=== PATIENT | male | born 1950 | race Caucasian/White ===

== ENCOUNTER 2018-03-12 17:45 | Emergency (ER) | payer BC, OTHER ==
--- NOTE | 2018-03-12 19:07 | ER ---
Nurse's Notes [facility] Name: Yasmani Ro Age: 67 yrs Sex: Male : 1950 Arrival Date: 03/12/2018 Time: 17:49 Bed 13 Private MD: None, None Diagnosis: Cutaneous abscess of abdominal wall Presentation: 03/12 18:00 Presenting complaint: Patient states: bump on lower abdomen x 4 days, "I think it might jl7 be a spider bite.". Transition of care: patient was not received from another setting of care. Onset of symptoms was March 08, 2018. Risk Assessment: Do you want to hurt yourself or someone else? Patient reports no desire to harm self or others. Initial Sepsis Screen: Does the patient meet any 2 criteria? No. Patient's initial sepsis screen is negative. Does the patient have a suspected source of infection? No. Patient's initial sepsis screen is negative. Care prior to arrival: None. 18:00 Method Of Arrival: Ambulatory 7 18:00 Acuity: AMARI 4 jl7 Triage Assessment: 18:02 General: Appears in no apparent distress. uncomfortable, Behavior is calm, cooperative, jl7 appropriate for age. Pain: Denies pain. Derm: Abscess located on suprapubic area is quarter sized, is red. Historical: - Allergies: 18:02 Codeine; jl7 18:02 Morphine; jl7 - Home Meds: 18:02 None [Active]; jl7 - PMHx: 18:02 None; jl7 - PSHx: 18:02 shoulder surgery; Knee surgery; jl7 - Immunization history:: Adult Immunizations not up to date, Last tetanus immunization: > 10 years ago. - Social history:: Smoking status: Patient/guardian denies using tobacco, Patient uses alcohol, on a daily basis. admits to "couple of beers" a day. - Ebola Screening: : No symptoms or risks identified at this time. Screenin:22 Abuse screen: Denies threats or abuse. Nutritional screening: No deficits noted. mb3 Tuberculosis screening: No symptoms or risk factors identified. Fall Risk None identified. Assessment: 18:21 General: Appears in no apparent distress. comfortable, Behavior is calm, cooperative, mb3 appropriate for age. Pain: Complains of pain in suprapubic area. Neuro: No deficits noted. Cardiovascular: No deficits noted. Respiratory: No deficits noted. GI: No deficits noted. No signs and/or symptoms were reported involving the gastrointestinal system. : No deficits noted. No signs and/or symptoms were reported regarding the genitourinary system. Derm: Reports insect bite to suprapubic area, open now, itching and painful. Vital Signs: 18:02 BP 164 / 84; Pulse 77; Resp 16 S; Temp 98.6(O); Pulse Ox 98% on R/A; Weight 115.67 kg jl7 (R); Height 6 ft. 1 in. (185.42 cm) (R); Pain 4/10; 18:02 Body Mass Index 33.64 (115.67 kg, 185.42 cm) jl7 ED Course: 17:49 Patient arrived in ED. mr 17:50 None, None is Private Physician. mr 18:01 Triage completed. jl7 18:02 Arm band placed on right wrist. jl7 18:05 [facility]. pm1 18:05 Jack Frazier MD is Attending Physician. pm1 18:13 Oneil Bob, ELISSA is Primary Nurse. mb3 18:23 Patient has correct armband on for positive identification. Bed in low position. Call mb3 light in reach. 19:24 No provider procedures requiring assistance completed. Patient did not have IV access mb3 during this emergency room visit. Administered Medications: No medications were administered Outcome: 19:06 Discharge ordered by . pm1 19:24 Discharged to home ambulatory. mb3 19:24 Condition: stable 19:24 Discharge instructions given to patient, Instructed on discharge instructions, follow up and referral plans. medication usage, Demonstrated understanding of instructions, follow-up care, medications, Prescriptions given X 1. 19:25 Patient left the ED. mb3 Signatures: Aurelia Max mr Faustino Rausch, RUMA DENTAL TECHNICIAN INSTRUCTOR pm1 Nacho Gipson RN RN jl7 Oneil Bob RN RN mb3
--- NOTE | 2018-03-12 19:07 | EDPHYS ---
Physician Documentation [facility] Name: Yasmani Ro Age: 67 yrs Sex: Male : 1950 Arrival Date: 03/12/2018 Time: 17:49 Bed 13 Private MD: None, None ED Physician Jack Frazier HPI: 03/12 19:05 This 67 yrs old Male presents to ER via Ambulatory with complaints of Abscess.pm1 19:05 The patient presents with an abscess of the suprapubic area. Description: The affected pm1 area is small. Onset: The symptoms/episode began/occurred 4 day(s) ago. Possible cause(s): unknown. Associated signs and symptoms: Pertinent positives: drainage, Pertinent negatives: fever. Modifying factors: the symptoms are alleviated by nothing, the symptoms are aggravated by touching. Severity of symptoms: in the emergency department the symptoms have improved. The patient has not recently seen a physician. Historical: - Allergies: 18:02 Codeine; jl7 18:02 Morphine; jl7 - Home Meds: 18:02 None [Active]; jl7 - PMHx: 18:02 None; jl7 - PSHx: 18:02 shoulder surgery; Knee surgery; jl7 - Immunization history:: Adult Immunizations not up to date, Last tetanus immunization: > 10 years ago. - Social history:: Smoking status: Patient/guardian denies using tobacco, Patient uses alcohol, on a daily basis. admits to "couple of beers" a day. - Ebola Screening: : No symptoms or risks identified at this time. ROS: 19:05 Constitutional: Negative for fever, chills, and weight loss, Eyes: Negative for injury, pm1 pain, redness, and discharge, ENT: Negative for injury, pain, and discharge, Neck: Negative for injury, pain, and swelling, Cardiovascular: Negative for chest pain, palpitations, and edema, Respiratory: Negative for shortness of breath, cough, wheezing, and pleuritic chest pain, Abdomen/GI: Negative for abdominal pain, nausea, vomiting, diarrhea, and constipation, Back: Negative for injury and pain, MS/Extremity: Negative for injury and deformity. 19:05 Neuro: Negative for headache, weakness, numbness, tingling, and seizure. 19:05 Skin: Positive for abscess, of the suprapubic area. Exam: 19:05 Constitutional: This is a well developed, well nourished patient who is awake, alert, pm1 and in no acute distress. Head/Face: Normocephalic, atraumatic. Eyes: Pupils equal round and reactive to light, extra-ocular motions intact. Lids and lashes normal. Conjunctiva and sclera are non-icteric and not injected. Cornea within normal limits. Periorbital areas with no swelling, redness, or edema. ENT: Nares patent. No nasal discharge, no septal abnormalities noted. Tympanic membranes are normal and external auditory canals are clear. Oropharynx with no redness, swelling, or masses, exudates, or evidence of obstruction, uvula midline. Mucous membranes moist. Neck: Trachea midline, no thyromegaly or masses palpated, and no cervical lymphadenopathy. Supple, full range of motion without nuchal rigidity, or vertebral point tenderness. No Meningismus. Chest/axilla: Normal chest wall appearance and motion. Nontender with no deformity. No lesions are appreciated. Cardiovascular: Regular rate and rhythm with a normal S1 and S2. No gallops, murmurs, or rubs. Normal PMI, no JVD. No pulse deficits. Respiratory: Lungs have equal breath sounds bilaterally, clear to auscultation and percussion. No rales, rhonchi or wheezes noted. No increased work of breathing, no retractions or nasal flaring. Abdomen/GI: Soft, non-tender, with normal bowel sounds. No distension or tympany. No guarding or rebound. No evidence of tenderness throughout. Back: No spinal tenderness. No costovertebral tenderness. Full range of motion. 19:05 MS/ Extremity: Pulses equal, no cyanosis. Neurovascular intact. Full, normal range of motion. 19:05 Skin: Appearance: normal except for affected area, abscess, that is small, no surrounding cellulitis, fluctuance. Minimal drainage present, cellulitis, is not appreciated. 19:05 Neuro: Orientation: is normal, Motor: moves all fours, Gait: is steady, at a normal pace, without difficulty. Vital Signs: 18:02 BP 164 / 84; Pulse 77; Resp 16 S; Temp 98.6(O); Pulse Ox 98% on R/A; Weight 115.67 kg jl7 (R); Height 6 ft. 1 in. (185.42 cm) (R); Pain 4/10; 18:02 Body Mass Index 33.64 (115.67 kg, 185.42 cm) jl7 MDM: 18:05 Patient medically screened. pm1 19:05 Data reviewed: vital signs. Data interpreted: Pulse oximetry: on room air is 98 %. pm1 Interpretation: normal. Counseling: I had a detailed discussion with the patient and/or guardian regarding: the historical points, exam findings, and any diagnostic results supporting the discharge/admit diagnosis, the need for outpatient follow up, to return to the emergency department if symptoms worsen or persist or if there are any questions or concerns that arise at home. Administered Medications: No medications were administered Disposition: 03/13 07:14 Co-signature as Attending Physician, Jack Frazier MD. rn Disposition: 03/12/18 19:06 Discharged to Home. Impression: Cutaneous abscess of abdominal wall. - Condition is Stable. - Discharge Instructions: Skin Abscess. - Prescriptions for Bactrim DS 800- 160 mg Oral Tablet - take 1 tablet by ORAL route every 12 hours for 10 days; 20 tablet. - Medication Reconciliation Form, Thank You Letter, Antibiotic Education form. - Follow up: Emergency Department; When: As needed; Reason: Worsening of condition. Follow up: Private Physician; When: 2 - 3 days; Reason: Recheck today's complaints, Continuance of care, Re-evaluation by your physician. - Problem is new. - Symptoms have improved. Signatures: Jack Frazier MD MD rn Marinas, Patrick, RUMA SEXUAL ASSAULT SOCIAL WORKER pm1 Nacho Gipson RN RN jl7 Oneil Bob RN RN mb3 Corrections: (The following items were deleted from the chart) 03/12 19:25 19:06 03/12/2018 19:06 Discharged to Home. Impression: Cutaneous abscess of abdominal mb3 wall. Condition is Stable. Forms are Medication Reconciliation Form, Thank You Letter, Antibiotic Education, Prescription Opioid Use. Follow up: Emergency Department; When: As needed; Reason: Worsening of condition. Follow up: Private Physician; When: 2 - 3 days; Reason: Recheck today's complaints, Continuance of care, Re-evaluation by your physician. Problem is new. Symptoms have improved. pm1
[2018-03-12 19:37] VITALS: BP 164/84; TEMP 98.6; O2SAT 98
== END 2018-03-12 19:25 | disposition home or self-care (01) ==
LOC: ER 17:45
DX: L02.211 Cutaneous abscess of abdominal wall (principal); Z88.5 Allergy status to narcotic agent
CPT/HCPCS: 99282

== ENCOUNTER 2023-07-08 17:31 | Inpatient (IN) | payer BC, OTHER ==
[2023-07-08] MEDS ORDERED: ASPIRIN 81 MG CHEWABLE TABLET ONE (18:16)
[2023-07-08 18:19] LABS: Absolute Lymphocytes (CBC) 1.9 K/uL (0.7-4.9); Lymphocytes % 23.9 % (15.3-44.8); MCV 83.9 fL (80-100); MPV 8.6 fL (7.6-11.3); Platelets 202 thou/uL (152-406); Protime INR 1.06; RBC Red Blood Cell Count 5.37 M/uL (4.33-5.43)
[2023-07-08 18:30] LABS: ALT/SGPT 28 U/L (16-61); AST/SGOT 19 U/L (15-37); Alkaline Phosphatase 70 U/L (45-117); BUN Blood Urea Nitrogen 18 mg/dL (7-18); Bicarbonate 28 mEq/L (21-32); Bilirubin Total 0.3 mg/dL (0.2-1.0); Glomerular Filtration Rate 72 ml/min (=/>90); Glucose Level 189 mg/dL (74-106); Potassium 3.9 mEq/L (3.5-5.1); Protein, Total 7.6 g/dL (6.4-8.2); Sodium Level 136 mEq/L (136-145)
[2023-07-08 18:31] LABS: Albumin 3.5 g/dL (3.4-5.0); Bilirubin Direct < 0.1 mg/dL (0-0.2); Bilirubin Indirect, Calculated ND mg/dL (0.2-0.8); Magnesium 2.2 mg/dL (1.6-2.4); NT PRO-BNP 749 pg/mL (<450)
--- NOTE | 2023-07-08 18:35 | RAD REPORT ---
EXAM DESCRIPTION: RAD - Chest Single View - 07/08/2023 6:11 pm CLINICAL HISTORY: vtach COMPARISON: CHEST SINGLE VIEW dated 09/20/2013; CHEST SINGLE VIEW dated 09/19/2013; CHEST PA AND LAT 2 VIEW dated 09/18/2013; CHEST PA AND LAT 2 VIEW dated 09/16/2012 FINDINGS: Lines: None. Lungs: No evidence of edema or pneumonia. Pleural: No significant pleural effusions or pneumothorax. Cardiac: The heart size is within normal limits. Mediastinum: Within normal limits. Bones: No acute fractures. Other: None IMPRESSION: No acute cardiopulmonary disease.
--- NOTE | 2023-07-08 18:50 | EDPHYS ---
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 tach. Patient denies any chest pain, shortness of breath, any symptoms. Dr. Huggins sent the patient to be admitted to have a heart cath done in the morning. Denies other acute complaints at this time, symptoms are moderate severity, no other aggravating alleviating factors.. Historical: - Allergies: 17:35 Morphine; ll1 17:35 Codeine; ll1 17:43 Hydrocodone-Acetaminophen; ll1 - PMHx: 17:43 prostate problems; ll1 - PSHx: 17:43 knee replacements; ll1 - Immunization history:: Adult Immunizations up to date. - Social history:: Smoking status: Patient denies any tobacco usage or history of. - Family history:: not pertinent. ROS: 18:58 Constitutional: Negative for fever, chills, and weight loss, Cardiovascular: Negative rt for chest pain, palpitations, and edema, Respiratory: Negative for shortness of breath, cough, wheezing, and pleuritic chest pain, Abdomen/GI: Negative for abdominal pain, nausea, vomiting, diarrhea, and constipation, MS/Extremity: Negative for injury and deformity, Skin: Negative for injury, rash, and discoloration, Neuro: Negative for headache, weakness, numbness, tingling, and seizure, Psych: Negative for depression, anxiety, suicide ideation, homicidal ideation, and hallucinations, Exam: 18:58 Constitutional: This is a well developed, well nourished patient who is awake, alert, rt and in no acute distress. Head/Face: Normocephalic, atraumatic. Chest/axilla: Normal chest wall appearance and motion. Nontender with no deformity. No lesions are appreciated. Cardiovascular: Regular rate and rhythm with a normal S1 and S2. No gallops, murmurs, or rubs. Normal PMI, no JVD. No pulse deficits. Respiratory: Lungs have equal breath sounds bilaterally, clear to auscultation and percussion. No rales, rhonchi or wheezes noted. No increased work of breathing, no retractions or nasal flaring. Abdomen/GI: Soft, non-tender, with normal bowel sounds. No distension or tympany. No guarding or rebound. No evidence of tenderness throughout. Skin: Warm, dry with normal turgor. Normal color with no rashes, no lesions, and no evidence of cellulitis. MS/ Extremity: Pulses equal, no cyanosis. Neurovascular intact. Full, normal range of motion. Neuro: Awake and alert, GCS 15, oriented to person, place, time, and situation. Cranial nerves II-XII grossly intact. Motor strength 5/5 in all extremities. Sensory grossly intact. Cerebellar exam normal. Normal gait. Psych: Awake, alert, with orientation to person, place and time. Behavior, mood, and affect are within normal limits. 18:58 ECG was reviewed by the Attending Physician. Vital Signs: 17:44 BP 165 / 88; Pulse 101; Resp 17; Temp 97.8; Pulse Ox 96% on R/A; Pain 0/10; ll1 18:00 BP 166 / 88; Pulse 100; Resp 22 S; Pulse Ox 96% on R/A; aa5 18:15 BP 123 / 57; Pulse 74; Resp 16 S; Pulse Ox 97% on R/A; aa5 19:30 BP 125 / 59; Pulse 76; Resp 18 S; Pulse Ox 95% on R/A; ha1 20:52 BP 126 / 60; Pulse 70; Resp 12 S; Pulse Ox 94% on R/A; as6 17:44 Pain Scale: Adult ll1 MDM: 17:37 Patient medically screened. rt 19:00 Differential Diagnosis Coronary artery disease, dysrhythmia. Data reviewed: vital rt signs, nurses notes, lab test result(s), EKG, radiologic studies. Consideration of Admission/Observation Patient was admitted/placed on observation. Management of patient was discussed with the following: Supervising Film Or Videotape Editor: Discussed with assistant women's basketball coach recommends metoprolol for antiarrhythmic. I considered the following discharge prescriptions or medication management in the emergency department Medications were administered in the Emergency Department. See MAR. Independent interpretation of the following test(s) in the Emergency Department X-Ray: My interpretation is No consolidation seen on interpretation of x-ray images. Counseling: I had a detailed discussion with the patient and/or guardian regarding the historical points, exam findings, and any diagnostic results supporting the discharge/admit diagnosis, lab results, radiology results, the need for further work-up and treatment in the hospital. 07/08 17:52 Order name: Basic Metabolic Panel; Complete Time: 18:38 rt 07/08 17:52 Order name: CBC with Diff; Complete Time: 18:38 rt 07/08 17:52 Order name: LFT's; Complete Time: 18:38 rt 07/08 17:52 Order name: Magnesium; Complete Time: 18:38 rt 07/08 17:52 Order name: NT PRO-BNP; Complete Time: 18:38 rt 07/08 17:52 Order name: PT-INR; Complete Time: 18:38 rt 07/08 17:52 Order name: Troponin HS; Complete Time: 18:38 rt 07/08 17:52 Order name: XRAY Chest (1 view); Complete Time: 18:38 rt 07/08 17:52 Order name: EKG; Complete Time: 17:53 rt 07/08 17:52 Order name: Cardiac monitoring; Complete Time: 18:01 rt 07/08 17:52 Order name: EKG - Nurse/Tech; Complete Time: 18:01 rt 07/08 17:52 Order name: IV Saline Lock; Complete Time: 18:01 rt 07/08 17:52 Order name: Labs collected and sent; Complete Time: 18:01 rt 07/08 17:52 Order name: O2 Per Protocol; Complete Time: 18:01 rt 07/08 17:52 Order name: O2 Sat Monitoring; Complete Time: 18:01 rt EC:58 Rate is 96 beats/min. Rhythm is regular, Sinus Rhythm with Unifocal PVCs, Left bundle rt branch block. QRS [place] is Normal. DE interval is normal. QT interval is normal. No Q waves. Interpreted by me. Administered Medications: 18:07 Drug: Metoprolol IVP 5 mg IVP once; Hold for SBP <100 or HR <60. Route: IVP; Site: left aa5 forearm; 18:15 Follow up: Response: No adverse reaction aa5 18:08 Drug: Aspirin PO Chewable Tablet 324 mg PO once; 81 mg tablets x 4 Route: PO; aa5 18:34 Follow up: Response: No adverse reaction aa5 Disposition Summary: 07/08/23 18:49 Hospitalization Ordered Notes: Hospitalization Status: Observation rt Provider: Barry Deal rt Location: Telemetry/MedSurg (observation) rt Condition: Stable rt Problem: new rt Symptoms: have improved rt Bed/Room Type: Standard rt Room Assignment: 429(07/08/23 20:10) as6 Diagnosis - Ventricular tachycardia rt Forms: - Medication Reconciliation Form rt - SBAR form rt - Leadership Thank You Letter rt Signatures: Dispatcher [employer] EDMS Malgorzata Isbell Audri RN RN aa5 Radha Augustine RN RN ll1 Chintan Ware RN RN as6 Jacinto Frey MD MD rt Corrections: (The following items were deleted from the chart) 19:01 18:49 rt bd 20:10 19:01 408 bd as6
--- NOTE | 2023-07-08 18:50 | ER ---
Nurse's Notes [facility] Name: Yasmani Ro Age: 73 yrs Sex: Male : 1950 Arrival Date: 07/08/2023 Time: 17:31 Bed 3 Private MD: Diagnosis: Ventricular tachycardia Presentation: 07/08 17:44 Chief complaint: Patient states: Wearing a heart monitor for Dr. Huggins. [facility] come into ED for runs of V tach. Denies CP and dizziness. Coronavirus screen: Vaccine status: Patient reports being unvaccinated. Client denies travel out of the [place] in the last 14 days. At this time, the client does not indicate any symptoms associated with coronavirus-19. Ebola Screen: Patient denies travel to an Ebola-affected area in the 21 days before illness onset. Initial Sepsis Screen: Does the patient meet any 2 criteria? No. Patient's initial sepsis screen is negative. Does the patient have a suspected source of infection? No. Patient's initial sepsis screen is negative. Risk Assessment: Do you want to hurt yourself or someone else? Patient reports no desire to harm self or others. 17:44 Method Of Arrival: Ambulatory [facility] 17:44 Acuity: AMARI 2 1 20:51 Onset of symptoms was July 08, 2023. as6 Historical: - Allergies: 17:35 Morphine; ll1 17:35 Codeine; ll1 17:43 Hydrocodone-Acetaminophen; ll1 - PMHx: 17:43 prostate problems; 1 - PSHx: 17:43 knee replacements; ll1 - Immunization history:: Adult Immunizations up to date. - Social history:: Smoking status: Patient denies any tobacco usage or history of. - Family history:: not pertinent. Screenin:00 [facility] ED Fall Risk Assessment (Adult) History of falling in the last 3 months, ha1 including since admission No falls in past 3 months (0 pts) Confusion or Disorientation No (0 pts) Intoxicated or Sedated No (0 pts) Impaired Gait No (0 pts) Mobility Assist Device Used No (0 pt) Altered Elimination No (0 pt) Score/Fall Risk Level 0 - 2 = Low Risk Oriented to surroundings, Maintained a safe environment, Hourly rounding (assess needs \T\ fall precautionary measures) done. Abuse screen: Denies threats or abuse. Denies injuries from another. Nutritional screening: No deficits noted. Tuberculosis screening: No symptoms or risk factors identified. Assessment: 17:40 General: Appears in no apparent distress. comfortable, Behavior is calm, cooperative. rs5 Pain: Denies pain. Neuro: Level of Consciousness is awake, alert, obeys commands, Oriented to person, place, time, situation. Cardiovascular: Heart tones S1 S2 present Rhythm is regular. Cardiovascular: Denies chest pain. Respiratory: Airway is patent Respiratory effort is even, unlabored, Respiratory pattern is regular, symmetrical, Breath sounds are clear bilaterally. GI: Abdomen is round non-distended, Bowel sounds present X 4 quads. Abd is soft and non tender X 4 quads. : No signs and/or symptoms were reported regarding the genitourinary system. EENT: No signs and/or symptoms were reported regarding the EENT system. Derm: Skin is intact, Skin is pink, warm \T\ dry. Musculoskeletal: Range of motion: intact in all extremities. 18:00 Reassessment: Patient is alert, oriented x 3, equal unlabored respirations, skin aa5 warm/dry/pink. 19:30 General: Appears comfortable, Behavior is calm, cooperative. Pain: Denies pain. Neuro: ha1 Level of Consciousness is awake, alert, obeys commands, Oriented to person, place, time, situation, Speech is normal, Facial symmetry appears normal. Cardiovascular: Capillary refill < 3 seconds Patient's skin is warm and dry. Respiratory: Airway is patent Respiratory effort is even, unlabored, Respiratory pattern is regular, symmetrical. GI: Abdomen is round non-distended. Derm: Skin is pink, warm \T\ dry. Musculoskeletal: Circulation, motion, and sensation intact. Range of motion: intact in all extremities. 19:30 Reassessment: attempted to give report. ha1 20:11 Reassessment: Reassessment: report given to ELISSA Rob. ha1 Vital Signs: 17:44 BP 165 / 88; Pulse 101; Resp 17; Temp 97.8; Pulse Ox 96% on R/A; Pain 0/10; ll1 18:00 BP 166 / 88; Pulse 100; Resp 22 S; Pulse Ox 96% on R/A; aa5 18:15 BP 123 / 57; Pulse 74; Resp 16 S; Pulse Ox 97% on R/A; aa5 19:30 BP 125 / 59; Pulse 76; Resp 18 S; Pulse Ox 95% on R/A; ha1 20:52 BP 126 / 60; Pulse 70; Resp 12 S; Pulse Ox 94% on R/A; as6 17:44 Pain Scale: Adult ll1 ED Course: 17:35 Patient arrived in ED. im 17:35 Jacinto Frey MD is Attending Physician. rt 17:35 Arm band placed on Patient placed in an exam room, on a stretcher. ll1 17:45 Triage completed. ll1 17:53 Nathaniel Oquendo, ELISSA is Primary Nurse. rs5 18:02 EKG done, by ED staff, reviewed by Jacinto Frey MD. cori 18:13 XRAY Chest (1 view) In Process Unspecified. EDMS 18:49 Barry Deal is Hospitalizing Provider. rt 20:02 Patient has correct armband on for positive identification. Placed in gown. Bed in low ha1 position. Call light in reach. Side rails up X 1. Provided Education on: need for admit . 20:02 No provider procedures requiring assistance completed. Patient admitted, IV remains in ha1 place. Administered Medications: 18:07 Drug: Metoprolol IVP 5 mg IVP once; Hold for SBP <100 or HR <60. Route: IVP; Site: left aa5 forearm; 18:15 Follow up: Response: No adverse reaction aa5 18:08 Drug: Aspirin PO Chewable Tablet 324 mg PO once; 81 mg tablets x 4 Route: PO; aa5 18:34 Follow up: Response: No adverse reaction aa5 Medication: 20:02 VIS not applicable for this client. ha1 Outcome: 18:49 Decision to Hospitalize by Provider. rt 20:51 Admitted to Tele accompanied by tech, via wheelchair, room 429, with chart, as6 20:51 Condition: stable 20:51 Instructed on the need for admit, 20:52 Patient left the ED. as6 Signatures: Dispatcher [employer] EDNJ Matilde Alonzo RN RN aa5 Radha Augustine RN RN ll1 Chintan Ware RN RN as6 Mariama Miranda RN RN ha1 Tina Mcpherson RN Jacinto Avalos MD MD rt Nathaniel Oquendo, RN RN rs5 Helga Ritter
--- NOTE | 2023-07-08 18:56 | P.HP ---
Certification for Inpatient Patient admitted to: Observation With expected LOS: <2 Midnights Patient will require the following post-hospital care: None Practitioner: I am a practitioner with admitting privileges, knowledge of patient current condition, hospital course, and medical plan of care. Services: Services provided to patient in accordance with Admission requirements found in Title 42 Section 412.3 of the Code of Federal Regulations Patient History Date of Service: 07/08/23 Primary Care Provider: Anshul Reason for admission: intermittent vtach History of Present Illness: Mr. Ro is a 73-year-old male with past medical history of asthma, seasonal allergies, and mild hyperlipidemia not on medication who was sent to the emergency department by Dr. Huggins today. He has been wearing a heart monitor for the past 2 weeks because he had an abnormal EKG. When Dr. Huggins saw the results today, he sent him to the emergency department for further evaluation because he has been having intermittent runs of ventricular tachycardia. Patient is completely asymptomatic, he denies any chest pain, shortness of breath, palpitations. EKG showed sinus arrhythmia with frequent PVCs, nonspecific intraventricular block, wide QRS complexes. Lab work is unremarkable, troponin within normal limits, chest x-ray negative. He was given aspirin and metoprolol emergency department. Dr. Huggins would like him to be admitted for cardiac catheterization in the morning. Allergies codeine Allergy (Verified 09/19/13 04:32) Itching/Hives/Rash morphine Allergy (Verified 09/19/13 04:32) Itching/Hives/Rash Home medications list reviewed: Yes Home Medications: Albuterol [Proventil] 17 gm IH PRN 09/19/13 Benzonatate [Tessalon] 200 mg PO PRN 09/19/13 Famotidine [Pepcid*] 20 mg PO BID 09/19/13 Montelukast [Singulair*] 5 mg PO DAILY 09/19/13 hydrOXYzine HCL [Atarax*] 25 mg PO PRN 09/19/13 Albuterol Inhaler [Ventolin Inhaler*] 2 puff IH Q4H PRN #1 hfa.aer.ad 09/20/13 Azithromycin Tab [Zithromax*] 500 mg PO DAILY #1 tab 09/20/13 Fluticasone/Salmeterol [Advair 500/50 Diskus*] 1 puff IH BID #60 disk 09/20/13 Guaifenesin [Robitussin] 100 mg PO Q4HP PRN #0 ml 09/20/13 predniSONE [Deltasone*] 10 mg PO BID #20 tab 09/20/13 - Past Medical/Surgical History Diabetic: No -: asthma -: seasonal allergies -: R shoulder sx -: Left and right knee sx Psychosocial/ Personal History: Patient lives at home with his . - Family History Family History: Reviewed- Non-Contributory - Social History Smoking Status: Never smoker Alcohol use: Yes CD- Drugs: No Caffeine use: Yes Place of Residence: Home Review of Systems Unremarkable Physical Examination - Vital Signs Temperature: 97.8 F Blood Pressure: 123/57 Pulse: 74 Respirations: 16 Pulse Ox (%): 97 - Physical Exam General: Alert, In no apparent distress HEENT: Atraumatic, EOMI, Sclerae nonicteric Neck: Supple, 2+ carotid pulse no bruit Respiratory: Clear to auscultation bilaterally, Normal air movement Cardiovascular: Regular rate/rhythm, Normal S1 S2 Gastrointestinal: Normal bowel sounds, No tenderness Musculoskeletal: No tenderness Integumentary: No rashes Neurological: Normal speech, Normal affect - Studies Laboratory Data (last 24 hrs) 07/08/23 07/08/23 07/08/23 18:00 18:00 18:00 WBC 7.80 Hgb 15.1 Hct 45.0 Plt Count 202 PT 11.7 INR 1.06 Sodium 136 Potassium 3.9 BUN 18 Creatinine 1.07 Glucose 189 H Magnesium 2.2 Total Bilirubin 0.3 AST 19 ALT 28 Alkaline Phosphatase 70 Assessment and Plan - Problems (Diagnosis) (1) Ventricular tachycardia (paroxysmal) Current Visit: Yes Status: Acute - Plan Patient is admitted for observation for intermittent vtach and cardiac catheterization. NPO at midnight. Monitor on telemetry. Trend troponin. Patient denies any chest pain, shortness of breath, dizziness. Dr. Huggins to take patient for cardiac cath in the morning. Discharge Plan: Home Plan to discharge in: 24 Hours - Advance Directives Does patient have a Living Will: No Does patient have a Durable POA for Healthcare: No - Code Status/Comfort Care Code Status Assessed: Yes Code Status: Full Code Physician Review: Patient Assessed, Agree with Above Assessment and Plan Critical Care: No Time Spent Managing Pts Care (In Minutes): 50
[2023-07-08] MEDS ORDERED: ONDANSETRON 4 MG/2 ML VIAL IV PRN (19:51)
[2023-07-08] MEDS ORDERED: ACETAMINOPHEN 500 MG TAB PO PRN (19:51)
[2023-07-08 22:42] VITALS: BMI 34.2
[2023-07-09 04:14] LABS: Absolute Lymphocytes (CBC) 2.3 K/uL (0.7-4.9); Hematocrit 42.7 % (39.6-49.0); Lymphocytes % 29.7 % (15.3-44.8); MCV 84.4 fL (80-100); MPV 8.5 fL (7.6-11.3); Platelets 190 thou/uL (152-406); RBC Red Blood Cell Count 5.06 M/uL (4.33-5.43)
[2023-07-09 04:28] LABS: Magnesium 2.3 mg/dL (1.6-2.4); Phosphorus 3.3 mg/dL (2.5-4.9); Potassium 4.4 mEq/L (3.5-5.1); Troponin High Sensitivity 22.1 pg/mL (<58.9)
--- NOTE | 2023-07-09 10:42 | EKG ---
Test Date: 2023-07-08 Test Time: 17:59:36 Community Outreach Advocate: MB MEASUREMENT RESULTS: Intervals: Rate: 96 W[place]: 190 QRSD: 156 QT: 422 QTc: 533 [place]: P: 61 [place]: 190 QRS: 19 T: 165 INTERPRETIVE STATEMENTS: Sinus rhythm with sinus arrhythmia with frequent premature ventricular complexes Nonspecific intraventricular block Abnormal ECG Compared to ECG 09/18/2013 20:00:11 Ventricular premature complex(es) now present Sinus tachycardia no longer present Myocardial infarct finding no longer present Electronically Signed On 07-09-23 10:41:32 ENGINEER by Ozzy Huggins
[2023-07-09] MEDS ORDERED: MONTELUKAST 5 MG PO PRN (17:40)
[2023-07-09] MEDS ORDERED: AMIODARONE HCL 900 MG in Dextrose 5%-Water 482 ML IV SCH (17:48)
[2023-07-09] MEDS ORDERED: AMIODARONE HCL 150 MG in D5W 100 ML IV STA (17:49)
[2023-07-09] MEDS ORDERED: MONTELUKAST 10 MG TAB PO PRN (17:50)
[2023-07-09] MEDS ORDERED: AMIODARONE HCL 450 MG in D5W 241 ML IV SCH (18:00)
--- NOTE | 2023-07-09 18:00 | P.PN ---
Subjective Date of Service: 07/09/23 Primary Care Provider: Anshul Chief Complaint: intermittent vtach Patient has no new complaint. He denies any chest pain. He denies any shortness of breath. Physical Examination - Vital Signs Temperature: 97.6 F Blood Pressure: 137/80 Pulse: 75 Respirations: 14 Pulse Ox (%): 97 - Studies Laboratory Data (last 24 hrs) 07/08/23 07/08/23 07/08/23 18:00 18:00 18:00 WBC 7.80 Hgb 15.1 Hct 45.0 Plt Count 202 PT 11.7 INR 1.06 Sodium 136 Potassium 3.9 BUN 18 Creatinine 1.07 Glucose 189 H Magnesium 2.2 Total Bilirubin 0.3 AST 19 ALT 28 Alkaline Phosphatase 70 Assessment And Plan - Current Problems (Diagnosis) (1) Ventricular tachycardia (paroxysmal) Current Visit: Yes Status: Acute - Plan Case discussed with cardiology Dr. Huggins. Dr. Huggins recommend 24-hour amiodarone drip. Cardiac catheterization tomorrow. Monitor and optimize electrolytes. Resume home dosing singulair. N.p.o. at midnight.
[2023-07-10] MEDS ORDERED: HEPA 1000U/500MLS 2,000 UNIT/1,000 ML BAG IV ONE (06:58)
[2023-07-10] MEDS ORDERED: LIDOCAINE 1% 20 ML MDV ONE (06:59)
[2023-07-10] MEDS ORDERED: FENTANYL CITR 100 MCG/2 ML ONE (07:18)
[2023-07-10] MEDS ORDERED: VERAPAMIL HCL 10 MG/4 ML VIAL IV ONE (07:19)
[2023-07-10] MEDS ORDERED: MIDAZOLAM HCL 2 MG/2 ML INJ ONE (07:19)
[2023-07-10] MEDS ORDERED: HEPARIN 5000 UNIT/ML 1 ML VIAL ONE (07:19)
[2023-07-10] MEDS ORDERED: NITROGLYCERIN/D5W 50 MG/250 ML BTL IV ONE (07:20)
[2023-07-10] MEDS ORDERED: NA CHLORIDE 0.9% 500 ML ONE (07:58)
--- NOTE | 2023-07-10 09:14 | OP ---
Date of Procedure: 07/10/2023 Surgeon: TOM SWAIN Procedure Performed: 1.Selective coronary angiogram. 2.Left heart catheterization. Indication: Ventricular tachycardiac. Access: Right radial artery 6-Nauruan, closed with TR band. Complications: None. Bleeding: Less than 20 mL. Total Sedation Time: 20 minutes. Description Of Procedure: After risks, benefits, alternatives were explained, patient agreed to proc edure and signed informed consent. Patient was brought into cardiac catheterization laboratory, prep ped and draped in the usual sterile fashion. Then, I accessed right radial artery using pediatric mi cropuncture kit, under ultrasound guidance, placed 6-Nauruan Slender sheath and took a 5-Nauruan [place] 4.0 catheter over J-wire into the aortic root, engaged left main, took standard views, and then RCA a nd took standard views and the catheter was pushed over the wire into the LV, measured the LVEDP pull back, did not record any gradient. Then, removed the catheter and sheath and placed TR band with goo d hemostasis. Findings: 1.Left main; very large, normal. 2.LAD, very large vessel and normal. Normal diagonal branches. 3.Ramus intermedius has proximal 40% stenosis. 4.Left circumflex is normal. 5.RCA; large and dominant with mid 30% stenosis. 6.Normal LVEDP at 5 mmHg. Conclusion: 1.Mild nonobstructive coronary artery disease. 2.Normal LVEDP. Recommendation: Medical management. /ELSIE Voice ID: [id number] Report ID: [id number]
[2023-07-10 09:54] VITALS: O2SAT 96
--- NOTE | 2023-07-10 17:32 | P.PN ---
Subjective Date of Service: 07/10/23 Primary Care Provider: Anshul Chief Complaint: intermittent vtach Patient denies any complaint. He denies any chest pain. Status post cardiac catheterization today. Physical Examination - Vital Signs Temperature: 97.7 F Blood Pressure: 179/78 Pulse: 71 Respirations: 16 Pulse Ox (%): 100 - Physical Exam General: Alert, In no apparent distress, Oriented x3 HEENT: Mucous membr. moist/pink Neck: Supple, JVD not distended Respiratory: Clear to auscultation bilaterally, Normal air movement Cardiovascular: No edema, Regular rate/rhythm, Normal S1 S2, No murmurs Gastrointestinal: Normal bowel sounds, Soft and benign, Non-distended Musculoskeletal: No swelling, No tenderness Integumentary: No rashes, No cyanosis Neurological: Normal strength at 5/5 x4 extr Assessment And Plan - Current Problems (Diagnosis) (1) Ventricular tachycardia (paroxysmal) Current Visit: Yes Status: Acute - Plan Status post cardiac catheterization Dr. Huggins recommend 24-hour amiodarone drip. Patient to complete amiodarone drip and then transition to oral amiodarone. Monitor and optimize electrolytes. Continue other home medications.
[2023-07-10] MEDS ORDERED: AMIODARONE HCL 200 MG TAB PO SCH (21:00)
[2023-07-10] MEDS: AMIODARONE HCL 200 MG TAB PO SCH (21:08)
[2023-07-11] MEDS: AMIODARONE HCL 200 MG TAB PO SCH (10:02)
--- NOTE | 2023-07-11 13:32 | P.DS ---
Admission Date: 07/10/23 Discharge Date: 07/11/23 Primary Care Provider: Anshul Disposition: ROUTINE DISCHARGE Discharge Condition: FAIR Reason for Admission: intermittent vtach - Problems (1) Ventricular tachycardia (paroxysmal) Current Visit: Yes Status: Acute Brief History of Present Illness: Mr. Ro is a 73-year-old male with past medical history of asthma, seasonal allergies, and mild hyperlipidemia who was sent to the emergency department by Dr. Huggins for abnormal reading noted on his event monitor monitor. He has been wearing an event monitor for 2 weeks because he had an abnormal EKG. The event monitor read intermittent runs of ventricular tachycardia. Patient is completely asymptomatic, he denies any chest pain, shortness of breath, palpitations. EKG showed sinus arrhythmia with frequent PVCs, nonspecific intraventricular block, wide QRS complexes. Lab work unremarkable, troponin within normal limits, chest x-ray negative. He was given aspirin and metoprolol emergency department. Patient was hospitalized for further management. Hospital Course: Patient was admitted to the medical floor, started on amiodarone drip. Cardiology Dr. Huggins evaluated he may perform cardiac catheterization. Cardiac hypothyroidism resulted mild nonobstructive coronary artery disease. Amiodarone drip was transitioned to oral amiodarone. No more runs of VT during the hospital stay. Patient still clinically stable for discharge. He is discharged with oral amiodarone. Vital Signs/Physical Exam: Temp Pulse Resp BP Pulse Ox 97.2 F 87 18 129/69 97 07/11/23 08:00 07/11/23 08:00 07/11/23 08:00 07/11/23 08:00 07/11/23 08:00 Laboratory Data at Discharge: WBC 7.80 thou/uL (4.3-10.9) 07/09/23 03:15 Hgb 13.8 g/dL (13.6-17.9) D 07/09/23 03:15 Hct 42.7 % (39.6-49.0) 07/09/23 03:15 Plt Count 190 thou/uL (152-406) 07/09/23 03:15 PT 11.7 SECONDS (9.5-12.5) 07/08/23 18:00 INR 1.06 07/08/23 18:00 Sodium 138 mEq/L (136-145) 07/11/23 05:26 Potassium 4.0 mEq/L (3.5-5.1) 07/11/23 05:26 BUN 14 mg/dL (7-18) 07/11/23 05:26 Creatinine 0.88 mg/dL (0.70-1.30) 07/11/23 05:26 Glucose 111 mg/dL (74-106) H 07/11/23 05:26 Phosphorus 3.3 mg/dL (2.5-4.9) 07/09/23 03:15 Magnesium 2.3 mg/dL (1.6-2.4) 07/09/23 03:15 Total Bilirubin 0.3 mg/dL (0.2-1.0) 07/08/23 18:00 AST 19 U/L (15-37) 07/08/23 18:00 ALT 28 U/L (16-61) 07/08/23 18:00 Alkaline Phosphatase 70 U/L (45-117) 07/08/23 18:00 Triglycerides 101 mg/dL (<150) 07/09/23 03:15 Cholesterol 181 mg/dL (<200) 07/09/23 03:15 HDL Cholesterol 47 mg/dL (40-60) 07/09/23 03:15 Cholesterol/HDL Ratio 3.85 07/09/23 03:15 Home Medications: Montelukast [Singulair*] 10 mg PO DAILYPRN PRN 09/19/13 Anastrozole [Arimidex*] 0.5 mg PO M,W,F 07/08/23 Aspirin [Aspirin EC] 81 mg PO DAILY #30 tab 07/11/23 New Medications: Aspirin [Aspirin EC] 81 mg PO DAILY #30 tab Diet: AHA Activity: Ad marika Followup: Jaison Landers DO [Primary Care Provider] - Ozzy Huggins MD [ACTIVE - CAN ADMIT] - 1-2 Weeks
[2023-07-11 16:39] VITALS: BP 142/78; TEMP 97.2
== END 2023-07-11 18:05 | disposition home or self-care (01) | DRG 310 ==
LOC: ER 17:31 → 4TH 19:24 → OBSVTOIN 07-10 12:05
PROVIDERS: ADMIT Internal Medicine; ATTEND Internal Medicine
DX: I47.20 Ventricular tachycardia, unspecified (principal); E78.5 Hyperlipidemia, unspecified; I49.3 Ventricular premature depolarization; E03.9 Hypothyroidism, unspecified; J45.909 Unspecified asthma, uncomplicated; I25.10 Atherosclerotic heart disease of native coronary artery without angina pectoris; Z88.5 Allergy status to narcotic agent; Z79.82 Long term (current) use of aspirin; Z79.52 Long term (current) use of systemic steroids; Z79.899 Other long term (current) drug therapy; Z96.653 Presence of artificial knee joint, bilateral
CPT/HCPCS: 36415; 71045; 76937; 80048; 80061; 80076; 83735; 83880; 84100; 84484; 85025; 85610; 93005; 93458; 96374; 99285; C1893; G0378; J0282; J1644; J2001; J2250; J3010; J7040; J7060; Q9966

== ENCOUNTER 2024-12-27 08:41 | Observation (INO) | payer OTHER ==
--- OUTSIDE RECORDS SUMMARY | 2024-12-27 08:45 | XMS REPORT | Continuity of Care Document ---
Author Name Unknown Address [address] [facility] [address] [place] [address] Organization [facility] Address [address] [facility]. [address] [place] [address] Care Team Providers Care Lime Mixer Name Role Phone Jaison Landers Attending Clinician Unavailable Payers Payer Name Policy Type Policy Number Effective Date Expirati on Date Source [employer] Medicare Replace C1 [id number] [facility] [id number] [facility] [employer] Medicare Replace C1 [id number] [facility] MEDICARE NOVITAS [id number] [facility] MEDICARE NOVITAS [id number] [facility] [employer] Medicare Replace C1 [id number] [facility] Problems Condition Name Condition Details Condition Category Status Onset Date Resolution Date Last Treatment Date Treating Clinician Comments Source [id number] Other ejaculator y dysfunctio n Problem [facility] [id number] Primary insomnia Problem [facility] [id number] Urge incontinen ce Problem [facility] [id number] 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 Problem [facility] Impotence of organic origin Erectile dysfunctio n, unspecifie d erectile dysfunctio n type Problem [facility] [id number] Mixed hyperlipid emia Problem [facility] [id number] HTN, goal below 140/80 Problem [facility] [id number] BPH loc w urin obs/LUTS Problem [facility] [id number] Seasonal allergies Problem [facility] [id number] [id number] BMI 34.0-34.9 kg/sq m Problem [facility] [id number] Non-season al allergic rhinitis, unspecifie d trigger Problem [facility] [id number] ED (erectile dysfunctio n) of organic origin Problem [facility] [id number] 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 Problem [facility] Allergies, Adverse Reactions, Alerts Allergy Name Allergy Type Status Severity Reaction(s) Onset Date Inactive Date Treating Clinician Comments Source morphine morphine Active Unknown [facility] codeine codeine Active Unknown [facility] Social History Social Habit Start Date Stop Date Quantity Comments Source History of Tobacco Use [facility] Sex Assigned At [facility] Smoking Status Start Date Stop Date Source Never Smoker [facility] Medications Ordered Medication Name Filled Medication Name Start Date Stop Date Current Medication? Ordering Clinician Indication Dosage Frequency Signature (SIG) Comments Components Source Kenalog (Triamcinol one) Kenalog (Triamcinol one) 0 9-05 00:00: 00 No 40mg [facility] Singulair 10 MG Singulair 10 MG No 1{table t} QD Singulair 10 MG Metoprolol Succinate ER 25 MG Metoprolol Succinate ER 25 MG No 1{table t} QD Metoprolol Succinate ER 25 MG Albuterol Sulfate HFA 108 (90 Base) MCG/ACT Albuterol Sulfate HFA 108 (90 Base) MCG/ACT No 2{puff_ as_need ed} 6xD Albuterol Sulfate HFA 108 (90 Base) MCG/ACT Vital Signs Vital Name Observation Time Observation Value Comments S cassie height 2024-12-21 13:45:00 73 [in_i] Commo n [facility] weight 2024-12-21 13:45:00 264 [lb_av] Comm on [facility] temperature 2024-12-21 13:45:00 97.3 [degF] Com [facility] bmi 2024-12-21 13:45:00 34.83 kg/m2 Comm on [facility] oximetry 2024-12-21 13:45:00 97 % Commo n [facility] respiratory rate 2024-12-21 13:45:00 18 /min [facility] blood pressure systolic 2024-12-21 13:45:00 120 mm[Hg] [facility] blood pressure diastolic 2024-12-21 13:45:00 58 mm[Hg] [facility] height 2024-12-21 13:50:00 73 [in_i] Commo n [facility] weight 2024-12-21 13:50:00 264 [lb_av] Comm on [facility] temperature 2024-12-21 13:50:00 97.3 [degF] Com [facility] bmi 2024-12-21 13:50:00 34.83 kg/m2 Comm on [facility] oximetry 2024-12-21 13:50:00 96 % Commo n [facility] blood pressure systolic 2024-12-21 13:50:00 120 mm[Hg] [facility] blood pressure diastolic 2024-12-21 13:50:00 58 mm[Hg] [facility] height 2024-10-06 08:00:00 73 [in_i] Commo n [facility] weight 2024-10-06 08:00:00 265 [lb_av] Comm on [facility] bmi 2024-10-06 08:00:00 34.96 kg/m2 Comm on [facility] height 2024-08-04 10:00:00 73 [in_i] Commo n [facility] weight 2024-08-04 10:00:00 271 [lb_av] Comm on [facility] temperature 2024-08-04 10:00:00 97.1 [degF] Com mon [facility] bmi 2024-08-04 10:00:00 35.75 kg/m2 Comm on [facility] oximetry 2024-08-04 10:00:00 97 % Commo n [facility] respiratory rate 2024-08-04 10:00:00 17 /min Common [facility] blood pressure systolic 2024-08-04 10:00:00 143 mm[Hg] [facility] blood pressure diastolic 2024-08-04 10:00:00 76 mm[Hg] [facility] height 2024-03-31 10:20:00 73 [in_i] Commo n [facility] weight 2024-03-31 10:20:00 266.6 [lb_av] Co mmon [facility] temperature 2024-03-31 10:20:00 97.2 [degF] Com mon [facility] bmi 2024-03-31 10:20:00 35.17 kg/m2 Comm on [facility] oximetry 2024-03-31 10:20:00 96 % Commo n [facility] blood pressure systolic 2024-03-31 10:20:00 142 mm[Hg] [facility] blood pressure diastolic 2024-03-31 10:20:00 72 mm[Hg] [facility] height 2024-03-31 10:20:00 73 [in_i] Commo n [facility] weight 2024-03-31 10:20:00 266.6 [lb_av] Co on [facility] temperature 2024-03-31 10:20:00 97.2 [degF] Com [facility] bmi 2024-03-31 10:20:00 35.17 kg/m2 Comm on [facility] oximetry 2024-03-31 10:20:00 96 % Commo n [facility] blood pressure systolic 2024-03-31 10:20:00 142 mm[Hg] [facility] blood pressure diastolic 2024-03-31 10:20:00 72 mm[Hg] [facility] height 2024-03-11 08:40:00 73 [in_i] Commo n [facility] weight 2024-03-11 08:40:00 265.4 [lb_av] Co [facility] temperature 2024-03-11 08:40:00 97.3 [degF] Com [facility] bmi 2024-03-11 08:40:00 35.01 kg/m2 Comm on [facility] oximetry 2024-03-11 08:40:00 96 % Commo n [facility] respiratory rate 2024-03-11 08:40:00 17 /min Common [facility] blood pressure systolic 2024-03-11 08:40:00 139 mm[Hg] [facility] blood pressure diastolic 2024-03-11 08:40:00 77 mm[Hg] [facility] height 2023-11-26 08:30:00 73 [in_i] Commo n [facility] weight 2023-11-26 08:30:00 261.0 [lb_av] Co [facility] temperature 2023-11-26 08:30:00 97.6 [degF] Com [facility] bmi 2023-11-26 08:30:00 34.43 kg/m2 Comm on [facility] oximetry 2023-11-26 08:30:00 96 % Commo n [facility] respiratory rate 2023-11-26 08:30:00 17 /min [facility] blood pressure systolic 2023-11-26 08:30:00 141 mm[Hg] [facility] blood pressure diastolic 2023-11-26 08:30:00 80 mm[Hg] [facility] height 2023-11-26 08:00:00 73 [in_i] Commo n [facility] weight 2023-11-26 08:00:00 261.0 [lb_av] Co [facility] temperature 2023-11-26 08:00:00 97.6 [degF] Com [facility] bmi 2023-11-26 08:00:00 34.43 kg/m2 Comm on [facility] oximetry 2023-11-26 08:00:00 96 % Commo n [facility] respiratory rate 2023-11-26 08:00:00 17 /min [facility] blood pressure systolic 2023-11-26 08:00:00 141 mm[Hg] [facility] blood pressure diastolic 2023-11-26 08:00:00 80 mm[Hg] [facility] height 2023-08-06 08:50:00 73 [in_i] Commo n [facility] weight 2023-08-06 08:50:00 259.0 [lb_av] Co [facility] temperature 2023-08-06 08:50:00 97.4 [degF] Com [facility] bmi 2023-08-06 08:50:00 34.17 kg/m2 Comm on [facility] oximetry 2023-08-06 08:50:00 96 % Commo n [facility] respiratory rate 2023-08-06 08:50:00 17 /min Common [facility] blood pressure systolic 2023-08-06 08:50:00 133 mm[Hg] [facility] blood pressure diastolic 2023-08-06 08:50:00 71 mm[Hg] [facility] height 2023-04-16 08:20:00 73 [in_i] Commo n [facility] weight 2023-04-16 08:20:00 261.2 [lb_av] Co mmon [facility] temperature 2023-04-16 08:20:00 97.4 [degF] Com [facility] bmi 2023-04-16 08:20:00 34.46 kg/m2 Comm on [facility] oximetry 2023-04-16 08:20:00 93 % Commo n [facility] respiratory rate 2023-04-16 08:20:00 16 /min [facility] blood pressure systolic 2023-04-16 08:20:00 142 mm[Hg] [facility] blood pressure diastolic 2023-04-16 08:20:00 72 mm[Hg] [facility] height 2023-03-04 11:45:00 73 [in_i] Commo n [facility] weight 2023-03-04 11:45:00 261.4 [lb_av] Co mmon [facility] temperature 2023-03-04 11:45:00 97.9 [degF] Com mon [facility] bmi 2023-03-04 11:45:00 34.48 kg/m2 Comm on [facility] oximetry 2023-03-04 11:45:00 94 % Commo n [facility] respiratory rate 2023-03-04 11:45:00 18 /min [facility] blood pressure systolic 2023-03-04 11:45:00 148 mm[Hg] [facility] blood pressure diastolic 2023-03-04 11:45:00 75 mm[Hg] [facility] height 2023-01-07 10:15:00 73 [in_i] Commo n [facility] weight 2023-01-07 10:15:00 264 [lb_av] Comm on [facility] temperature 2023-01-07 10:15:00 97.3 [degF] Com mon [facility] bmi 2023-01-07 10:15:00 34.83 kg/m2 Comm on [facility] oximetry 2023-01-07 10:15:00 99 % Commo n [facility] respiratory rate 2023-01-07 10:15:00 18 /min [facility] blood pressure systolic 2023-01-07 10:15:00 146 mm[Hg] [facility] blood pressure diastolic 2023-01-07 10:15:00 68 mm[Hg] [facility] height 2022-12-11 08:20:00 73 [in_i] Commo n [facility] weight 2022-12-11 08:20:00 260.3 [lb_av] Co mmon [facility] temperature 2022-12-11 08:20:00 97.2 [degF] Com mon [facility] bmi 2022-12-11 08:20:00 34.34 kg/m2 Comm on [facility] oximetry 2022-12-11 08:20:00 97 % Commo n [facility] respiratory rate 2022-12-11 08:20:00 16 /min Common [facility] blood pressure systolic 2022-12-11 08:20:00 142 mm[Hg] [facility] blood pressure diastolic 2022-12-11 08:20:00 79 mm[Hg] [facility] height 2022-12-11 08:20:00 73 [in_i] Commo n [facility] weight 2022-12-11 08:20:00 260.3 [lb_av] Co mmon [facility] temperature 2022-12-11 08:20:00 97.2 [degF] Com mon [facility] bmi 2022-12-11 08:20:00 34.34 kg/m2 Comm on [facility] oximetry 2022-12-11 08:20:00 97 % Commo n [facility] respiratory rate 2022-12-11 08:20:00 16 /min [facility] blood pressure systolic 2022-12-11 08:20:00 142 mm[Hg] [facility] blood pressure diastolic 2022-12-11 08:20:00 79 mm[Hg] [facility] height 2022-10-08 09:45:00 73 [in_i] Commo n [facility] weight 2022-10-08 09:45:00 267 [lb_av] Comm on [facility] temperature 2022-10-08 09:45:00 97.3 [degF] Com [facility] bmi 2022-10-08 09:45:00 35.22 kg/m2 Comm on [facility] oximetry 2022-10-08 09:45:00 96 % Commo n [facility] respiratory rate 2022-10-08 09:45:00 18 /min [facility] blood pressure systolic 2022-10-08 09:45:00 142 mm[Hg] [facility] blood pressure diastolic 2022-10-08 09:45:00 60 mm[Hg] Common [facility] height 2022-09-03 13:30:00 73 [in_i] Commo n [facility] weight 2022-09-03 13:30:00 266 [lb_av] Comm on [facility] bmi 2022-09-03 13:30:00 35.09 kg/m2 Comm on [facility] height 2022-08-27 08:45:00 73 [in_i] Commo n [facility] weight 2022-08-27 08:45:00 266.8 [lb_av] Co mmon [facility] temperature 2022-08-27 08:45:00 97.7 [degF] Com mon [facility] bmi 2022-08-27 08:45:00 35.2 kg/m2 Commo n [facility] oximetry 2022-08-27 08:45:00 97 % Commo n [facility] respiratory rate 2022-08-27 08:45:00 16 /min Common [facility] blood pressure systolic 2022-08-27 08:45:00 143 mm[Hg] [facility] blood pressure diastolic 2022-08-27 08:45:00 87 mm[Hg] [facility] height 2022-08-14 08:20:00 73 [in_i] Commo n [facility] weight 2022-08-14 08:20:00 265.2 [lb_av] Co mmon [facility] temperature 2022-08-14 08:20:00 97.3 [degF] Com mon [facility] bmi 2022-08-14 08:20:00 34.99 kg/m2 Comm on [facility] oximetry 2022-08-14 08:20:00 99 % Commo n [facility] respiratory rate 2022-08-14 08:20:00 18 /min Common [facility] blood pressure systolic 2022-08-14 08:20:00 138 mm[Hg] [facility] blood pressure diastolic 2022-08-14 08:20:00 76 mm[Hg] Common [facility] height 2022-04-24 08:10:00 73 [in_i] Commo n [facility] weight 2022-04-24 08:10:00 256.9 [lb_av] Co on [facility] temperature 2022-04-24 08:10:00 96.9 [degF] Com mon [facility] bmi 2022-04-24 08:10:00 33.89 kg/m2 Comm on [facility] oximetry 2022-04-24 08:10:00 97 % Commo n [facility] respiratory rate 2022-04-24 08:10:00 16 /min Common [facility] blood pressure systolic 2022-04-24 08:10:00 139 mm[Hg] [facility] blood pressure diastolic 2022-04-24 08:10:00 76 mm[Hg] [facility] height 2022-02-20 13:15:00 73 [in_i] Commo n [facility] weight 2022-02-20 13:15:00 258.2 [lb_av] Co on [facility] temperature 2022-02-20 13:15:00 97.1 [degF] Com [facility] bmi 2022-02-20 13:15:00 34.06 kg/m2 Comm on [facility] oximetry 2022-02-20 13:15:00 96 % Commo n [facility] respiratory rate 2022-02-20 13:15:00 16 /min Common [facility] blood pressure systolic 2022-02-20 13:15:00 162 mm[Hg] Common [facility] blood pressure diastolic 2022-02-20 13:15:00 74 mm[Hg] [facility] height 2021-12-26 08:30:00 73 [in_i] Commo n [facility] weight 2021-12-26 08:30:00 254.5 [lb_av] Co mmon [facility] temperature 2021-12-26 08:30:00 97.8 [degF] Com mon [facility] bmi 2021-12-26 08:30:00 33.57 kg/m2 Comm on [facility] oximetry 2021-12-26 08:30:00 98 % Commo n [facility] respiratory rate 2021-12-26 08:30:00 18 /min Common [facility] blood pressure systolic 2021-12-26 08:30:00 134 mm[Hg] [facility] blood pressure diastolic 2021-12-26 08:30:00 72 mm[Hg] [facility] height 2021-08-30 08:10:00 73 [in_i] Commo n [facility] weight 2021-08-30 08:10:00 249 [lb_av] Comm on [facility] temperature 2021-08-30 08:10:00 97.2 [degF] Com [facility] bmi 2021-08-30 08:10:00 32.85 kg/m2 Comm on [facility] blood pressure systolic 2021-08-30 08:10:00 132 mm[Hg] [facility] blood pressure diastolic 2021-08-30 08:10:00 67 mm[Hg] [facility] height 2021-08-30 09:20:00 73 [in_i] Commo n [facility] weight 2021-08-30 09:20:00 249 [lb_av] Comm on [facility] temperature 2021-08-30 09:20:00 97.2 [degF] Com [facility] bmi 2021-08-30 09:20:00 32.85 kg/m2 Comm on [facility] blood pressure systolic 2021-08-30 09:20:00 132 mm[Hg] [facility] blood pressure diastolic 2021-08-30 09:20:00 67 mm[Hg] [facility] height 2021-08-28 13:00:00 73 [in_i] Commo n [facility] weight 2021-08-28 13:00:00 249 [lb_av] Comm on [facility] temperature 2021-08-28 13:00:00 97.7 [degF] Com mon [facility] bmi 2021-08-28 13:00:00 32.85 kg/m2 Comm on [facility] height 2021-08-01 09:45:00 73 [in_i] Commo n [facility] weight 2021-08-01 09:45:00 249 [lb_av] Comm on [facility] temperature 2021-08-01 09:45:00 98.6 [degF] Com mon [facility] bmi 2021-08-01 09:45:00 32.85 kg/m2 Comm on [facility] oximetry 2021-08-01 09:45:00 96 % Commo n [facility] respiratory rate 2021-08-01 09:45:00 18 /min Common [facility] blood pressure systolic 2021-08-01 09:45:00 149 mm[Hg] Common [facility] blood pressure diastolic 2021-08-01 09:45:00 76 mm[Hg] [facility] height 2021-06-26 10:30:00 73 [in_i] Commo n [facility] weight 2021-06-26 10:30:00 256.2 [lb_av] Co mmon [facility] temperature 2021-06-26 10:30:00 97.1 [degF] Com mon [facility] bmi 2021-06-26 10:30:00 33.8 kg/m2 Commo n [facility] oximetry 2021-06-26 10:30:00 97 % Commo n [facility] blood pressure systolic 2021-06-26 10:30:00 153 mm[Hg] [facility] blood pressure diastolic 2021-06-26 10:30:00 89 mm[Hg] [facility] height 2021-05-03 08:00:00 73 [in_i] Commo n [facility] weight 2021-05-03 08:00:00 258.8 [lb_av] Co mmon [facility] temperature 2021-05-03 08:00:00 97.3 [degF] Com mon [facility] bmi 2021-05-03 08:00:00 34.14 kg/m2 Comm on [facility] oximetry 2021-05-03 08:00:00 97 % Commo n [facility] respiratory rate 2021-05-03 08:00:00 16 /min [facility] blood pressure systolic 2021-05-03 08:00:00 134 mm[Hg] [facility] blood pressure diastolic 2021-05-03 08:00:00 76 mm[Hg] [facility] Procedures Procedure Date / Time Performed Performing Clinicia n Source PVR 2023-01-07 00:00:00 [facility] Encounters Start Date/Time End Date/Time Encounter Type Admission Type Attending Clinicians Care Facility Care Department Encounter ID Source 2024-08-15 15:45:00 Outpatient LandersKayleenh STLC STLC [id number] [facility] 2024-08-08 11:49:00 Outpatient LandersKayleenh STLC STLMLC [id number] [facility] 2024-06-27 06:43:00 Outpatient Landers, Jaison STLC STLMLC [id number] [facility] 2024-03-10 13:48:00 Outpatient LandersKayleenh STLMLC STLMLC [id number] [facility] 2023-11-24 10:40:00 Outpatient Landers, Jaison STLMLC STLMLC [id number] [facility] 2023-08-04 14:50:00 Outpatient Landers, Jaison STLMLC STLMLC [id number] [facility] 2023-01-07 09:59:00 Outpatient Landers, Jaison STLMLC STLMLC [id number] [facility] 2022-09-03 08:45:00 Outpatient Landers, Jaison STLMLC STLMLC [id number] [facility] 2022-08-12 10:02:00 Outpatient Landers, Jaison STLMLC STLMLC [id number] [facility] 2021-09-18 14:30:59 Outpatient Landers, Jaison STLMLC STLMLC [id number] [facility] 2021-09-18 14:30:55 Outpatient Landers, Jaison STLMLC STLMLC [id number] [facility] 2021-09-18 13:26:00 Outpatient Landers, Jaison STLMLC STLMLC [id number] [facility] 2021-09-18 12:58:21 Outpatient Landers, Jaison STLMLC STLMLC [id number] [facility] 2021-09-18 12:29:58 Outpatient Landers, Jaison STLMLC STLMLC [id number] [facility] 2021-09-18 12:28:15 Outpatient Landers, Jaison STLMLC STLMLC [id number] [facility] 2021-09-18 12:27:16 Outpatient Landers, Jaison STLMLC STLMLC [id number] [facility] 2021-09-18 11:59:41 Outpatient Landers, Jaison STLMLC STLMLC [id number] [facility] 2021-09-18 11:59:23 Outpatient Landers, Jaison STLMLC STLMLC [id number] [facility] 2021-09-18 11:58:08 Outpatient Landers, Jaison STLMLC STLMLC [id number] [facility] 2021-09-18 11:22:04 Outpatient Landers, Jaison STLMLC STLMLC [id number] [facility] 2021-09-18 11:20:34 Outpatient Landers, Jaison STLMLC STLMLC [id number] [facility] 2024-12-21 00:00:00 2024-12-21 00:00:00 OFFICE VISIT ESTAB PT LEVEL 4 STLMLC STLMLC [id number] [facility] 2024-12-21 00:00:00 2024-12-21 00:00:00 SUB ANNUAL [facility] WELLNESS VISIT STLMLC STLMLC [id number] [facility] 2024-10-10 00:00:00 2024-10-10 00:00:00 (TEL) STLMLC STLMLC [id number] [facility] 2024-10-06 00:00:00 2024-10-06 00:00:00 OFFICE VISIT ESTAB PT LEVEL 3 STLMLC STLMLC [id number] [facility] 2024-10-06 00:00:00 2024-10-06 00:00:00 (TEL) STLMLC STLMLC [id number] [facility] 2024-10-05 00:00:00 2024-10-05 00:00:00 (TEL) STLMLC STLMLC [id number] [facility] 2024-08-04 00:00:00 2024-08-04 00:00:00 OFFICE VISIT ESTAB PT LEVEL 4 STLMLC STLMLC [id number] [facility] 2024-03-31 00:00:00 2024-03-31 00:00:00 OFFICE VISIT ESTAB PT LEVEL 4 STLMLC STLMLC [id number] [facility] 2024-03-21 00:00:00 2024-03-21 00:00:00 (TEL) STLMLC STLMLC [id number] [facility] 2024-03-11 00:00:00 2024-03-11 00:00:00 OFFICE VISIT ESTAB PT LEVEL 3 STLMLC STLMLC [id number] [facility] 2024-03-10 00:00:00 2024-03-10 00:00:00 (TEL) STLMLC STLMLC [id number] [facility] 2024-01-25 00:00:00 2024-01-25 00:00:00 (TEL) STLMLC STLMLC [id number] [facility] 2024-01-15 00:00:00 2024-01-15 00:00:00 (TEL) STLMLC STLMLC [id number] [facility] 2024-01-15 00:00:00 2024-01-15 00:00:00 (TEL) STLMLC STLMLC [id number] [facility] 2023-11-26 00:00:00 2023-11-26 00:00:00 OFFICE VISIT ESTAB PT LEVEL 4 STLMLC STLMLC [id number] [facility] 2023-11-26 00:00:00 2023-11-26 00:00:00 (TEL) STLMLC STLMLC [id number] [facility] 2023-11-26 00:00:00 2023-11-26 00:00:00 SUB ANNUAL [facility] WELLNESS VISIT STLMLC STLMLC [id number] [facility] 2023-10-30 00:00:00 2023-10-30 00:00:00 (TEL) STLMLC STLMLC [id number] [facility] 2023-08-06 00:00:00 2023-08-06 00:00:00 OFFICE VISIT ESTAB PT LEVEL 4 STLMLC STLMLC [id number] [facility] 2023-04-16 00:00:00 2023-04-16 00:00:00 OFFICE VISIT ESTAB PT LEVEL 3 STLMLC STLMLC [id number] [facility] 2023-03-04 00:00:00 2023-03-04 00:00:00 OFFICE VISIT ESTAB PT LEVEL 4 STLMLC STLMLC [id number] [facility] 2023-01-07 00:00:00 2023-01-07 00:00:00 OFFICE VISIT ESTAB PT LEVEL 4 STLMLC STLMLC [id number] [facility] 2022-12-11 00:00:00 2022-12-11 00:00:00 OFFICE VISIT ESTAB PT LEVEL 4 STLMLC STLMLC [id number] [facility] 2022-12-11 00:00:00 2022-12-11 00:00:00 SUB ANNUAL MCR WELLNESS VISIT STLMLC STLMLC [id number] [facility] 2022-10-08 00:00:00 2022-10-08 00:00:00 OFFICE VISIT ESTAB PT LEVEL 5 STLMLC STLMLC [id number] [facility] 2022-09-03 00:00:00 2022-09-03 00:00:00 OFFICE VISIT EST PT LEVEL 3 STLMLC STLMLC [id number] [facility] 2022-09-03 00:00:00 2022-09-03 00:00:00 (TEL) STLMLC STLMLC [id number] [facility] 2022-08-27 00:00:00 2022-08-27 00:00:00 OFFICE VISIT ESTAB PT LEVEL 4 STLMLC STLMLC [id number] [facility] 2022-08-14 00:00:00 2022-08-14 00:00:00 OFFICE VISIT ESTAB PT LEVEL 4 STLMLC STLMLC [id number] [facility] 2022-06-30 00:00:00 2022-06-30 00:00:00 (TEL) STLMLC STLMLC [id number] [facility] 2022-04-24 00:00:00 2022-04-24 00:00:00 OFFICE VISIT ESTAB PT LEVEL 4 STLMLC STLMLC [id number] [facility] 2022-02-20 00:00:00 2022-02-20 00:00:00 OFFICE VISIT EST PT LEVEL 3 STLMLC STLMLC [id number] [facility] 2021-12-26 00:00:00 2021-12-26 00:00:00 OFFICE VISIT ESTAB PT LEVEL 4 STLMLC STLMLC [id number] [facility] 2021-08-30 00:00:00 2021-08-30 00:00:00 OFFICE VISIT EST PT LEVEL 3 STLMLC STLMLC [id number] [facility] 2021-08-30 00:00:00 2021-08-30 00:00:00 SUB ANNUAL MCR WELLNESS VISIT STLMLC STLMLC [id number] [facility] 2021-08-28 00:00:00 2021-08-28 00:00:00 OFFICE VISIT EST PT LEVEL 3 STLMLC STLMLC [id number] [facility] 2021-08-27 00:00:00 2021-08-27 00:00:00 (TEL) STLMLC STLMLC [id number] [facility] 2021-08-01 00:00:00 2021-08-01 00:00:00 OFFICE VISIT ESTAB PT LEVEL 4 STLMLC STLMLC [id number] [facility] 2021-06-26 00:00:00 2021-06-26 00:00:00 OFFICE VISIT ESTAB PT LEVEL 4 STLMLC STLMLC [id number] [facility] 2021-06-26 00:00:00 2021-06-26 00:00:00 (TEL) STLMLC STLMLC [id number] [facility] 2021-05-03 00:00:00 2021-05-03 00:00:00 OFFICE VISIT ESTAB PT LEVEL 4 STLMLC STLMLC [id number] [facility] 2021-03-25 00:00:00 2021-03-25 00:00:00 Outpatient STLMLC STLMLC [id number] [facility] 2021-03-11 00:00:00 2021-03-11 00:00:00 Outpatient STLMLC STLMLC [id number] [facility] 2021-03-11 00:00:00 2021-03-11 00:00:00 Outpatient STLMLC STLMLC [id number] [facility] 2021-03-07 00:00:00 2021-03-07 00:00:00 Outpatient STLMLC STLMLC [id number] [facility] 2020-12-31 00:00:00 2020-12-31 00:00:00 Outpatient STLMLC STLMLC [id number] [facility] 2020-12-31 00:00:00 2020-12-31 00:00:00 Outpatient STLMLC STLMLC [id number] [facility] 2020-09-26 00:00:00 2020-09-26 00:00:00 Outpatient STLMLC STLMLC [id number] [facility] 2020-06-20 00:00:00 2020-06-20 00:00:00 Outpatient STLMLC STLMLC [id number] [facility] 2020-06-13 00:00:00 2020-06-13 00:00:00 Outpatient STLMLC STLMLC [id number] [facility] 2020-06-11 00:00:00 2020-06-11 00:00:00 Outpatient STLMLC STLMLC [id number] [facility] 2020-03-23 08:30:00 2020-03-23 08:30:[address] [facility] [address] [facility] [place] [facility] [id number] [facility] 2020-03-16 08:47:00 2020-03-16 08:47:[address] [facility] [address] [facility] [address] [facility] [id number] [facility] 2020-02-14 14:07:00 2020-02-14 14:07:00 [facility] [place] [facility] [id number] [facility] 2019-12-29 08:15:00 2019-12-29 08:15:00 [facility] [facility] [place] [facility] [id number] [facility] 2019-12-29 08:00:00 2019-12-29 08:00:00 [facility] [id number] [facility] 2019-09-27 08:15:00 2019-09-27 08:15:00 [facility] [id number] [facility] 2019-09-20 08:13:00 2019-09-20 08:13:00 [facility] [id number] [facility] 2019-08-01 09:30:00 2019-08-01 09:30:00 [facility] [id number] [facility] Results Test Description Test Time Test Comments Results Result Co mments Source HEMOGLOBIN [id number] 00:00:00* Test Item Value Reference Range Interpretation Comme [facility] HEMOGLOBIN A1c (test code = 4548-4) 6.4 % See_Comment H [Automated messa ge] The system which generated this result transmitted reference range: 4.2-5.6 %. The reference range was not used to interpret this result as normal/abnormal. [id number] 00:00:00resultHEMOGLOBIN [id number] 00:00:00* Test Item Value Reference Range Interpretation Comme nts HEMOGLOBIN A1c (test code = 4548-4) 6.0 % See_Comment H [Automated messa ge] The system which generated this result transmitted reference range: 4.2-5.6 %. The reference range was not used to interpret this result as normal/abnormal. CBC W/AUTO [id number] 00:00:00* Test Item Value Reference Range Interpretation Comme nts NUCLEATED RBCS (test code = 74535-5) 0.0 /100 WBC'S See_Comment [Automated messa ge] The system which generated this result transmitted reference range: 0.0 /100 WBC'S. The reference range was not used to interpret this result as normal/abnormal. ABSOLUTE EOSINOPHILS (test code = 76102-5) 0.38 K/UL See_Comment [Automated messa ge] The system which generated this result transmitted reference range: 0.00-0.50 K/UL. The reference range was not used to interpret this result as normal/abnormal. ABSOLUTE LYMPHOCYTES (test code = 84219-2) 1.93 K/UL See_Comment [Automated messa ge] The system which generated this result transmitted reference range: 1.00-4.00 K/UL. The reference range was not used to interpret this result as normal/abnormal. ABSOLUTE MONOCYTES (test code = 23192-1) 0.63 K/UL See_Comment [Automated messa ge] The system which generated this result transmitted reference range: 0.20-1.00 K/UL. The reference range was not used to interpret this result as normal/abnormal. ABSOLUTE NEUTROPHILS (test code = 09533-5) 3.11 K/UL See_Comment [Automated messa ge] The system which generated this result transmitted reference range: 1.50-7.50 K/UL. The reference range was not used to interpret this result as normal/abnormal. BASOPHILS (test code = 00467-6) 1.0 % EOSINOPHILS (test code = 39138-3) 6.2 % HEMATOCRIT (test code = 06074-6) 46.0 % See_Comment [Automated messa ge] The system which generated this result transmitted reference range: 40.0-51.0 %. The reference range was not used to interpret this result as normal/abnormal. HEMOGLOBIN (test code = 718-7) 15.1 G/DL See_Comment [Automated messa ge] The system which generated this result transmitted reference range: 13.5-17.0 G/DL. The reference range was not used to interpret this result as normal/abnormal. LYMPHOCYTES (test code = 72144-1) 31.4 % MCH (test code = 68626-6) 27.9 PG See_Comment [Automated messa ge] The system which generated this result transmitted reference range: 25.0-33.0 PG. The reference range was not used to interpret this result as normal/abnormal. MCHC (test code = 83352-4) 32.8 G/DL See_Comment [Automated messa ge] The system which generated this result transmitted reference range: 31.0-36.0 G/DL. The reference range was not used to interpret this result as normal/abnormal. MCV (test code = 61931-7) 84.9 fL See_Comment [Automated messa ge] The system which generated this result transmitted reference range: 80.0-99.0 fL. The reference range was not used to interpret this result as normal/abnormal. MONOCYTES (test code = 33635-6) 10.3 % NEUTROPHILS (test code = 42432-3) 50.6 % PLATELET COUNT (test code = 09416-9) 188 K/UL See_Comment [Automated messa ge] The system which generated this result transmitted reference range: 130-400 K/UL. The reference range was not used to interpret this result as normal/abnormal. RBC (test code = 53836-0) 5.42 M/UL See_Comment [Automated messa ge] The system which generated this result transmitted reference range: 4.50-6.10 M/UL. The reference range was not used to interpret this result as normal/abnormal. RDW (test code = 68157-4) 13.7 % See_Comment [Automated messa ge] The system which generated this result transmitted reference range: 11.5-15.0 %. The reference range was not used to interpret this result as normal/abnormal. WBC (test code = 65040-2) 6.1 K/UL See_Comment [Automated messa ge] The system which generated this result transmitted reference range: 3.5-11.0 K/UL. The reference range was not used to interpret this result as normal/abnormal.
[2024-12-27] MEDS ORDERED: HEPARIN 5000 UNIT/ML 1 ML VIAL ONE (09:31)
[2024-12-27] MEDS ORDERED: FAMOTIDINE 20 MG/2 ML VIAL IV ONE (09:31)
[2024-12-27] MEDS ORDERED: ASPIRIN 81 MG CHEWABLE TABLET ONE (09:31)
[2024-12-27] MEDS ORDERED: NA CHLORIDE 0.9% 1,000 ML ONE (09:31)
[2024-12-27] MEDS ORDERED: HEPARIN/D5W 25,000 UNIT/500 ML BAG IV ONE (09:32)
[2024-12-27 09:37] LABS: Absolute Basophils 0.1 K/uL (0-0.5); Absolute Eosinophils 0.1 K/uL (0-0.5); Absolute Lymphocytes (CBC) 0.8 K/uL (0.7-4.9); Absolute Monocytes 1.2 K/uL (0.1-1.3); Absolute Neutrophil 10.3 K/uL (1.8-8.0); Basophils % 0.9 % (0-1.3); Eosinophils % 0.6 % (0-4.4); Hematocrit 42.9 % (39.6-49.0); Hemoglobin 14.7 g/dL (13.6-17.9); Lymphocytes % 6.5 % (15.3-44.8); MCH 28.2 pg (27.0-35.0); MCHC 34.3 g/dL (32.0-36.0); MCV 82.4 fL (80-100); MPV 8.5 fL (7.6-11.3); Monocytes % 9.9 % (3.3-12.3); Neutrophils % 82.1 % (41.7-73.7); Nucleated Red Blood Cells % 0.1 % (0-0); Platelets 175 thou/uL (152-406); RBC Red Blood Cell Count 5.21 M/uL (4.33-5.43)
[2024-12-27 09:42] LABS: PT Prothrombin Time 13.7 SECONDS (10-13.0); Protime INR 1.21
[2024-12-27 09:56] LABS: Albumin 3.2 g/dL (3.4-5.0); Albumin/Globulin Ratio 0.8 (1.1-1.8); Anion Gap 9.1 mEq/L (5.0-15.0); Bilirubin Direct 0.2 mg/dL (0-0.2); Bilirubin Indirect, Calculated 0.6 mg/dL (0.2-0.8); Bilirubin Total 0.8 mg/dL (0.2-1.0); Potassium 4.1 mEq/L (3.5-5.1); Protein, Total 7.2 g/dL (6.4-8.2); Troponin High Sensitivity 13.8 pg/mL (<58.9)
--- NOTE | 2024-12-27 10:02 | RAD REPORT ---
EXAMINATION: ONE VIEW CHEST XR CLINICAL INDICATION: CHEST PAIN TECHNIQUE: Frontal chest projection is submitted. Examination is limited by patient positioning and t echnique. COMPARISON: 07/08/2023 FINDINGS: The lungs are well inflated and clear. The heart is upper limit of normal in size. No displaced fract ures identified. IMPRESSION: No acute intrathoracic abnormalities.
--- NOTE | 2024-12-27 10:44 | EDPHYS ---
Physician Documentation [facility] Name: Yasmani Ro Age: 74 yrs Sex: Male : 1950 Arrival Date: 12/27/2024 Time: 08:41 Bed 6 Private MD: ED Physician Tato Roa HPI: 12/27 10:38 This 74 yrs old Male presents to ER via Ambulatory with complaints of Chest tiana Pain. 10:38 The patient or guardian reports chest pain that is located primarily in the anterior tiana chest wall, bilaterally. Onset: yesterday. The pain does not radiate. Associated signs and symptoms: Pertinent positives: lightheadedness. The chest pain is described as a heaviness, causing indigestion, a pressure. Modifying factors: The symptoms are alleviated by nothing. Severity of pain: At its worst the pain was mild in the emergency department the pain has improved mildly. The patient has experienced similar episodes in the past, a few times. Historical: - Allergies: 09:00 Codeine; hb 09:00 Morphine; hb - Home Meds: 09:00 metoprolol [Active]; hb - PMHx: 09:00 prostate problems; hb - PSHx: 09:00 knee replacements; hb - Immunization history:: Adult Immunizations up to date. - Infectious Disease History:: Denies. - Family history:: pertinent for. - Social history:: Smoking status: Patient denies any tobacco usage or history of. ROS: 10:38 Constitutional: Negative for fever, chills, and weight loss, Eyes: Negative for injury, tiana pain, redness, and discharge, ENT: Negative for injury, pain, and discharge, Neck: Negative for injury, pain, and swelling, Respiratory: Negative for shortness of breath, cough, wheezing, and pleuritic chest pain, Abdomen/GI: Negative for abdominal pain, nausea, vomiting, diarrhea, and constipation, Back: Negative for injury and pain, : Negative for injury, bleeding, discharge, and swelling, MS/Extremity: Negative for injury and deformity, Skin: Negative for injury, rash, and discoloration, Neuro: Negative for headache, weakness, numbness, tingling, and seizure, Psych: Negative for depression, anxiety, suicide ideation, homicidal ideation, and hallucinations, Allergy/Immunology: Negative for hives, rash, and allergies, Endocrine: Negative for neck swelling, polydipsia, polyuria, polyphagia, and marked weight changes, Hematologic/Lymphatic: Negative for swollen nodes, abnormal bleeding, and unusual bruising, 10:38 Cardiovascular: Positive for chest pain, palpitations, Exam: 10:38 Constitutional: This is a well developed, well nourished patient who is awake, alert, tiana and in no acute distress. Head/Face: Normocephalic, atraumatic. Eyes: Pupils equal round and reactive to light, extra-ocular motions intact. Lids and lashes normal. Conjunctiva and sclera are non-icteric and not injected. Cornea within normal limits. Periorbital areas with no swelling, redness, or edema. ENT: Nares patent. No nasal discharge, no septal abnormalities noted. Tympanic membranes are normal and external auditory canals are clear. Oropharynx with no redness, swelling, or masses, exudates, or evidence of obstruction, uvula midline. Mucous membranes moist. Neck: Trachea midline, no thyromegaly or masses palpated, and no cervical lymphadenopathy. Supple, full range of motion without nuchal rigidity, or vertebral point tenderness. No Meningismus. Chest/axilla: Normal chest wall appearance and motion. Nontender with no deformity. No lesions are appreciated. Cardiovascular: Regular rate and rhythm with a normal S1 and S2. No gallops, murmurs, or rubs. Normal PMI, no JVD. No pulse deficits. Respiratory: Lungs have equal breath sounds bilaterally, clear to auscultation and percussion. No rales, rhonchi or wheezes noted. No increased work of breathing, no retractions or nasal flaring. Abdomen/GI: Soft, non-tender, with normal bowel sounds. No distension or tympany. No guarding or rebound. No evidence of tenderness throughout. Back: No spinal tenderness. No costovertebral tenderness. Full range of motion. Male : Normal genitalia with no discharge or lesions. Skin: Warm, dry with normal turgor. Normal color with no rashes, no lesions, and no evidence of cellulitis. MS/ Extremity: Pulses equal, no cyanosis. Neurovascular intact. Full, normal range of motion., bilateral aka Neuro: Awake and alert, GCS 15, oriented to person, place, time, and situation. Cranial nerves II-XII grossly intact. Motor strength 5/5 in all extremities. Sensory grossly intact. Cerebellar exam normal. Normal gait. Psych: Awake, alert, with orientation to person, place and time. Behavior, mood, and affect are within normal limits. 10:46 ECG was reviewed by the Attending Physician. [place] Vital Signs: 08:58 BP 156 / 77; Pulse 82; Resp 18; Temp 97.9; Pulse Ox 97% on R/A; Weight 117.03 kg; hb Height 6 ft. 0 in. ; Pain 8/10; 10:30 BP 129 / 71; Pulse 70; Resp 20; Pulse Ox 98% ; me1 11:00 BP 142 / 72; Pulse 68; Resp 20; Pulse Ox 97% ; me1 12:00 BP 148 / 78; Pulse 72; Resp 15; Pulse Ox 96% ; me1 12:30 BP 143 / 71; Pulse 72; Resp 18; Pulse Ox 97% ; me1 13:00 BP 147 / 69; Pulse 68; Resp 17; Pulse Ox 98% ; me1 08:58 Body Mass Index 34.99 (117.03 kg, 182.88 cm) hb 08:58 Pain Scale: Adult hb MDM: 08:51 Medical Screening Exam initiated tiana 10:41 Differential diagnosis: abnormal EKG, acute myocardial infarction, acute pericarditis, tiana anxiety, chest wall pain, cholecystitis, Cholelithiasis costochondritis, esophagitis, gastritis, gastroesophageal reflux disease (GERD), hiatal hernia, myocarditis, pancreatitis, peptic ulcer disease, pericarditis, pneumonia, pulmonary embolus, stable angina, thoracic aortic disection, unstable angina. HEART Score: History: Moderately Suspicious (1), ECG: Non specific repolarization disturbance / LBTB / PM (1), Age: > or = 65 years (2), Risk Factors: > or = 3 Risk factors for atherosclerotic disease (2), [Hypercholesterolemia] [Hypertension] [+ Family HX] [Obesity] Troponin: < or = 1 x Normal Limit (0). The patient was given aspirin in the Emergency Department. SHASHI Risk Score: 1 - patient's age is greater or equal to 65 years, 1 - Three or more CAD risk factors, 1- Known CAD, 1 - ASA use in past 7 days, TOTAL SCORE = 4. Data reviewed: vital signs, nurses notes, lab test result(s), radiologic studies. Consideration of Admission/Observation Escalation of care including admission/observation considered. I considered the following discharge prescriptions or medication management in the emergency department Medications were administered in the Emergency Department. See MAR. Independent interpretation of the following test(s) in the Emergency Department EKG: See my EKG interpretation above. Test considered but Not performed: Ultrasound NO 2 D ECHO. Care significantly affected by the following chronic conditions: Hypertension, Obesity, Cancer. Counseling: I had a detailed discussion with the patient and/or guardian regarding the historical points, exam findings, and any diagnostic results supporting the discharge/admit diagnosis, the presence of at least one elevated blood pressure reading (>120/80) during this emergency department visit, lab results, radiology results, the need for further work-up and treatment in the hospital. 12/27 08:52 Order name: Basic Metabolic Panel; Complete Time: 10:37 tiana 12/27 08:52 Order name: CBC with Diff; Complete Time: 10:37 tiana 12/27 08:52 Order name: LFT's; Complete Time: 10:37 tiana 12/27 08:52 Order name: Magnesium; Complete Time: 10:37 tiana 12/27 08:52 Order name: NT PRO-BNP; Complete Time: 10:37 tiana 12/27 08:52 Order name: PT-INR; Complete Time: 10:37 tiana 12/27 08:52 Order name: Troponin HS; Complete Time: 10:37 tiana 12/27 08:52 Order name: Lipase; Complete Time: 10:37 tiana 12/27 12:24 Order name: Basic Metabolic Panel EDMS / 12:24 Order name: Basic Metabolic Panel EDMS 12/27 12:24 Order name: Basic Metabolic Panel EDMS / 12:24 Order name: CBC with Automated Diff EDMS 05/ 12:25 Order name: CBC with Automated Diff EDMS 05/ 12:25 Order name: CBC with Automated Diff EDMS 05/ 12:25 Order name: CBC with Automated Diff EDMS 05/06 12:25 Order name: Lipid Profile EDMS 05/ 12:25 Order name: Lipid Profile EDMS 05/06 12:25 Order name: Troponin High Sensitivity EDMS 05/06 12:25 Order name: Troponin High Sensitivity EDMS 05/06 12:25 Order name: Troponin High Sensitivity EDMS 05/06 12:25 Order name: Troponin High Sensitivity EDMS 05/06 12:25 Order name: Troponin High Sensitivity [facility] 12/27 12:43 Order name: [place] [facility] [place] 12:54 Order name: PTT, Activated Partial Thromb; Complete Time: 12:57 [facility] 12/27 08:52 Order name: XRAY Chest (1 view); Complete Time: 10:37 [place] 12/27 12:24 Order name: Echo with Doppler [facility] 12/27 12:58 Order name: Echo w/ Doppler [place] 12/27 12:24 Order name: CONS Physician Consult [facility] 12/27 08:52 Order name: Cardiac monitoring; Complete Time: 09:47 [place] 12/27 08:52 Order name: EKG - Nurse/Tech; Complete Time: 08:57 [place] 12/27 08:52 Order name: IV Saline Lock; Complete Time: 09:47 [place] 12/27 08:52 Order name: Labs collected and sent; Complete Time: 09:47 [place] 12/27 08:52 Order name: O2 Per Protocol; Complete Time: 09:33 [place] 12/27 08:52 Order name: O2 Sat Monitoring; Complete Time: 09:33 [place] EC:46 Rate is 78 beats/min. Rhythm is regular. QRS [place] is Normal. MN interval is prolonged tiana at 218 msec. QRS interval is normal. QT interval is normal. No Q waves. T waves are Normal. No ST changes noted. Clinical impression: 1st degree heart block and No evidence of ischemia. Interpreted by me. Reviewed by me. Administered Medications: 09:47 Drug: NS 0.9% IV 500 ml 500 ml IV at 1 bolus once; to be given as a bolus over 30 ll1 minutes Volume: 500 ml; Route: IV; Rate: 1 bolus; Site: left antecubital; 10:33 Follow up: Response: No adverse reaction; IV Status: Completed infusion; IV Intake: me1 500ml 09:47 Drug: Aspirin PO Chewable Tablet 324 mg PO once; 81 mg tablets x 4 Route: PO; ll1 10:33 Follow up: Response: No adverse reaction md1 09:47 Drug: Famotidine IVP 20 mg IVP once; dilute with 10 mL 0.9% NaCl; give over 2 minutes ll1 Route: IVP; Site: left antecubital; 10:33 Follow up: Response: No adverse reaction md1 09:47 Drug: Heparin (DE-Bolus No thrombolytic) - HEParin IVP 60 units/kg IVP once; Max 5000 ll1 units {Co-Signature: kendra (Cordelia Subramanian RN).} Route: IVP; Site: left antecubital; 12:37 Follow up: Response: No adverse reaction me1 09:48 Drug: Heparin (DE Drip) 12 units/kg/hr - ([place] [address] units, D5W IV 500 ml) IV at ll1 calculated rate Per protocol; Max initial rate 1000 units/hr {Co-Signature: kendra (Cordelia Subramanian RN).} Route: IV; Rate: calculated rate; Site: left antecubital; 12:37 Follow up: IV Status: Infusion continued upon admission me1 10:33 Drug: NS 0.9% IV 500 ml 500 ml IV at 125 ml/hr once; to be given as a bolus over 30 me1 minutes Volume: 500 ml; Route: IV; Rate: 125 ml/hr; Site: right antecubital; 12:36 Follow up: IV Status: Infusion continued upon admission me1 Disposition Summary: 12/27/24 10:44 Hospitalization Ordered Notes: Hospitalization Status: Observation tiana Provider: Daniel Frazier cha Location: Telemetry/MedSurg (observation) tiana Condition: Stable tiana Problem: new tiana Symptoms: have improved tiana Bed/Room Type: Standard tiana Room Assignment: 225(12/27/24 12:34) bd Diagnosis - Chest pain, unspecified tiana - Essential (primary) hypertension tiana - Obesity, unspecified tiana Forms: - Medication Reconciliation Form tiana - SBAR form tiana - Leadership Thank You Letter tiana Signatures: Dispatcher [employer] Malgorzata Calvin Corey, MD MD cha Baxter, Heather RN RN Radha Augustine RN RN [facility] Ellyn Tim RN RN [facility] [place] Cordelia Subramanian RN Corrections: (The following items were deleted from the chart) 08:52 08:52 BASIC METABOLIC PANEL+C.LAB.BRZ ordered. EDMS EDMS 08:52 08:52 CBC+H.LAB.BRZ ordered. EDMS EDMS 08:52 08:52 HEPATIC FUNCTION+C.LAB.BRZ ordered. EDMS EDMS 08:52 08:52 MAGNESIUM+C.LAB.BRZ ordered. EDMS EDMS 08:52 08:52 PROBNP+C.LAB.BRZ ordered. EDMS EDMS 08:52 08:52 PROTIME (+INR)+COAG.LAB.BRZ ordered. EDMS EDMS 08:52 08:52 Troponin High Sensitivity+C.LAB.BRZ ordered. EDMS EDMS 08:52 08:52 LIPASE+C.LAB.BRZ ordered. EDMS EDMS 08:52 08:52 Chest Single View+RAD.RAD.BRZ ordered. EDMS EDMS 12:34 10:44 tiana bd
--- NOTE | 2024-12-27 10:44 | ER ---
Nurse's Notes [facility] Name: Yasmani Ro Age: 74 yrs Sex: Male : 1950 Arrival Date: 12/27/2024 Time: 08:41 Bed 6 Private MD: Diagnosis: Chest pain, unspecified;Essential (primary) hypertension;Obesity, unspecified Presentation: 12/27 08:58 Chief complaint: Intermittent substernal chest pressure x 2 days, became constant and hb severe this morning. Coronavirus screen: At this time, the client does not indicate any symptoms associated with coronavirus-19. Ebola Screen: No symptoms or risks identified at this time. Initial Sepsis Screen: Does the patient meet any 2 criteria? No. Patient's initial sepsis screen is negative. Does the patient have a suspected source of infection? No. Patient's initial sepsis screen is negative. Risk Assessment: Do you want to hurt yourself or someone else? Patient reports no desire to harm self or others. Onset of symptoms was December 26, 2024. 08:58 Method Of Arrival: Ambulatory hb 08:58 Acuity: AMARI 2 hb Historical: - Allergies: 09:00 Codeine; hb 09:00 Morphine; hb - Home Meds: 09:00 metoprolol [Active]; hb - PMHx: 09:00 prostate problems; hb - PSHx: 09:00 knee replacements; hb - Immunization history:: Adult Immunizations up to date. - Infectious Disease History:: Denies. - Family history:: pertinent for. - Social history:: Smoking status: Patient denies any tobacco usage or history of. Screenin:37 [facility] ED Fall Risk Assessment (Adult) History of falling in the last 3 months, ll1 including since admission No falls in past 3 months (0 pts) Confusion or Disorientation No (0 pts) Intoxicated or Sedated No (0 pts) Impaired Gait No (0 pts) Mobility Assist Device Used No (0 pt) Altered Elimination No (0 pt) Score/Fall Risk Level 0 - 2 = Low Risk Maintained a safe environment, Hourly rounding (assess needs \T\ fall precautionary measures) done. Abuse screen: Denies threats or abuse. Nutritional screening: No deficits noted. Tuberculosis screening: No symptoms or risk factors identified. Assessment: 09:47 General: Appears uncomfortable, Behavior is calm, cooperative, appropriate for age. ll1 Pain: Complains of pain in chest Pain currently is 6 out of 10 on a pain scale. Quality of pain is described as pressure, Pain began 1 day ago. Cardiovascular: Reports chest pain. 12:49 Pain: Pain does not radiate. me1 Vital Signs: 08:58 BP 156 / 77; Pulse 82; Resp 18; Temp 97.9; Pulse Ox 97% on R/A; Weight 117.03 kg; hb Height 6 ft. 0 in. ; Pain 8/10; 10:30 BP 129 / 71; Pulse 70; Resp 20; Pulse Ox 98% ; me1 11:00 BP 142 / 72; Pulse 68; Resp 20; Pulse Ox 97% ; me1 12:00 BP 148 / 78; Pulse 72; Resp 15; Pulse Ox 96% ; me1 12:30 BP 143 / 71; Pulse 72; Resp 18; Pulse Ox 97% ; me1 13:00 BP 147 / 69; Pulse 68; Resp 17; Pulse Ox 98% ; me1 08:58 Body Mass Index 34.99 (117.03 kg, 182.88 cm) hb 08:58 Pain Scale: Adult hb ED Course: 08:44 Patient arrived in ED. al6 08:51 Tato Roa MD is Attending Physician. tiana 08:53 EKG done, by ED staff, reviewed by Tato Roa MD. hb 09:00 Triage completed. hb 09:17 Yaneli Del Rio, RN is Primary Nurse. ph 09:25 Inserted saline lock: 22 gauge in left antecubital area, using aseptic technique. Blood nh2 collected. Flushed with 10 mL NS. 09:25 Bed in low position. Call light in reach. Provided Education on: ER procedures and ll1 process. Client placed on continuous cardiac and pulse oximetry monitoring. NIBP monitoring applied. patient monitor on. 09:27 Radha Augustine, RN is Primary Nurse. ll1 09:38 Basic Metabolic Panel Sent. nh2 09:38 CBC with Diff Sent. nh2 09:38 LFT's Sent. nh2 09:38 NT PRO-BNP Sent. nh2 09:38 PT-INR Sent. nh2 09:38 Troponin HS Sent. nh2 09:41 XRAY Chest (1 view) In Process Unspecified. EDMS 09:59 Inserted saline lock: 22 gauge in right antecubital area, using aseptic technique. nh2 Blood collected. Flushed with 10 mL NS. 10:43 Daniel Frazier MD is Hospitalizing Provider. [facility] 12:49 No provider procedures requiring assistance completed. Patient maintains SpO2 me1 saturation greater than 95% on room air. 12:49 Arm band placed on Patient placed in an exam room. me1 12:50 Patient admitted, IV remains in place. me1 Administered Medications: 09:47 Drug: NS 0.9% IV 500 ml 500 ml IV at 1 bolus once; to be given as a bolus over 30 ll1 minutes Volume: 500 ml; Route: IV; Rate: 1 bolus; Site: left antecubital; 10:33 Follow up: Response: No adverse reaction; IV Status: Completed infusion; IV Intake: me1 500ml 09:47 Drug: Aspirin PO Chewable Tablet 324 mg PO once; 81 mg tablets x 4 Route: PO; ll1 10:33 Follow up: Response: No adverse reaction me1 09:47 Drug: Famotidine IVP 20 mg IVP once; dilute with 10 mL 0.9% NaCl; give over 2 minutes ll1 Route: IVP; Site: left antecubital; 10:33 Follow up: Response: No adverse reaction me1 09:47 Drug: Heparin (PA-Bolus No thrombolytic) - HEParin IVP 60 units/kg IVP once; Max 5000 ll1 units {Co-Signature: hb (Cordelia Subramanian RN).} Route: IVP; Site: left antecubital; 12:37 Follow up: Response: No adverse reaction me1 09:48 Drug: Heparin (PA Drip) 12 units/kg/[place] ([place] [address] units, D5W IV 500 ml) IV at ll1 calculated rate Per protocol; Max initial rate 1000 units/hr {Co-Signature: hb (Cordelia Subramanian RN).} Route: IV; Rate: calculated rate; Site: left antecubital; 12:37 Follow up: IV Status: Infusion continued upon admission me1 10:33 Drug: NS 0.9% IV 500 ml 500 ml IV at 125 ml/hr once; to be given as a bolus over 30 me1 minutes Volume: 500 ml; Route: IV; Rate: 125 ml/hr; Site: right antecubital; 12:36 Follow up: IV Status: Infusion continued upon admission me1 Medication: 10:38 VIS not applicable for this client. ll1 Intake: 10:33 IV: 500ml; Total: 500ml. me1 Outcome: 10:44 Decision to Hospitalize by Provider. tiana 12:50 Admitted to Med/surg accompanied by tech, via wheelchair, room 225, with chart, Report me1 called to faxed, receipt confirmed with Echo 12:50 Condition: stable 12:50 Instructed on the need for admit, 13:38 Patient left the ED. hb Signatures: Dispatcher [employer] Tato Ross MD MD cha Hall, Patricia, RN RN Cordelia Subramanian, ELISSA RN Radha Augustine RN RN 1 Ellyn Tim RN RN [facility] Minesh Vasquez Jr, Alissa [facility] Cordelia Subramanian RN
--- NOTE | 2024-12-27 12:23 | P.HP ---
Patient History Date of Service: 12/27/24 History of Present Illness: 74-year-old male with a past medical history of BPH, tachyarrhythmia (follows with Dr. Huggins) presenting with chest pain that began yesterday. The pain does not radiate. Associated symptoms include dizziness, and nausea. He has not taken any medication for the chest pain. He denies chest pain with exertion. He denies tobacco use. He denies any previous heart attack or strokes. He was given aspirin and Pepcid in the ED. In addition to being started on heparin drip. He does not have any implants including pacemakers or ports. Allergies codeine Allergy (Verified 09/19/13 04:32) Itching/Hives/Rash morphine Allergy (Verified 09/19/13 04:32) Itching/Hives/Rash Home Medications: Montelukast [Singulair*] 10 mg PO DAILYPRN PRN 09/19/13 Metoprolol Succinate [Toprol Xl*] 25 mg PO DAILY 12/27/24 - Past Medical/Surgical History Diabetic: No -: asthma -: seasonal allergies -: hyperlipidemia -: R shoulder sx -: Left and right knee sx Psychosocial/ Personal History: Patient lives at home with his . - Social History Smoking Status: Never smoker Alcohol use: Yes CD- Drugs: No Caffeine use: Yes Review of Systems General: As per HPI Eyes: Unremarkable ENT: Unremarkable Respiratory: Unremarkable Cardiovascular: Chest Pain Gastrointestinal: Unremarkable Genitourinary: Unremarkable Musculoskeletal: Unremarkable Neurological: Unremarkable Lymphatics: Unremarkable Physical Examination - Physical Exam General: In no apparent distress HEENT: Normocephalic Neck: Supple Respiratory: Clear to auscultation bilaterally, Normal air movement Cardiovascular: No edema Capillary refill: <2 Seconds Gastrointestinal: Normal bowel sounds, Soft and benign Musculoskeletal: No clubbing Neurological: Normal strength at 5/5 x4 extr - Studies Laboratory Data (last 24 hrs) 12/27/24 12/27/24 12/27/24 09:28 09:28 09:28 WBC 12.60 H Hgb 14.7 Hct 42.9 Plt Count 175 PT 13.7 H INR 1.21 Sodium 135 L Potassium 4.1 BUN 14 Creatinine 0.87 Glucose 115 H Magnesium 2.0 Total Bilirubin 0.8 AST 15 ALT 20 Alkaline Phosphatase 61 Lipase 40 Assessment and Plan - Plan Chest pain BPH Elevated BNP Hypertension Start aspirin, statin, beta-tanya, continue heparin Consult cardiology Trend troponin Obtain echocardiogram Chest x-ray reviewed no acute process Continue Toprol DVT prophylaxis with Lovenox - Advance Directives Does patient have a Living Will: No Does patient have a Durable POA for Healthcare: No
[2024-12-27] MEDS ORDERED: NITROGLYCERIN 0.4 MG/TAB SL PRN (12:26)
[2024-12-27 13:44] VITALS: BMI 34.9
[2024-12-27] MEDS ORDERED: MONTELUKAST 10 MG TAB PO PRN (14:22)
[2024-12-27] MEDS: DIPHENHYDRAMINE 25 MG TAB/CAP PO ONE (20:54)
[2024-12-28 05:50] LABS: Absolute Eosinophils 0.2 K/uL (0-0.5); Absolute Lymphocytes (CBC) 1.2 K/uL (0.7-4.9); Absolute Monocytes 1.1 K/uL (0.1-1.3); Absolute Neutrophil 8.7 K/uL (1.8-8.0); Basophils % 0.4 % (0-1.3); Eosinophils % 2.2 % (0-4.4); Hemoglobin 13.9 g/dL (13.6-17.9); Lymphocytes % 10.9 % (15.3-44.8); MCH 28.3 pg (27.0-35.0); MCV 83.3 fL (80-100); MPV 8.8 fL (7.6-11.3); Monocytes % 9.8 % (3.3-12.3); Neutrophils % 76.7 % (41.7-73.7); Platelets 162 thou/uL (152-406); RBC Red Blood Cell Count 4.92 M/uL (4.33-5.43); Red Cell Distribution Width 14.4 % (12.1-15.2)
[2024-12-28] MEDS: predniSONE 20 MG TAB PO ONE (05:59)
[2024-12-28 06:11] LABS: Anion Gap 8.8 mEq/L (5.0-15.0); Potassium 3.8 mEq/L (3.5-5.1); Troponin High Sensitivity 14.7 pg/mL (<58.9)
[2024-12-28] MEDS ORDERED: HEPARIN 10,000 UNIT/10 ML VIAL IV ONE (07:16)
[2024-12-28] MEDS ORDERED: HEPA 1000U/500MLS 2,000 UNIT/1,000 ML BAG IV ONE (07:16)
[2024-12-28] MEDS ORDERED: MIDAZOLAM HCL 2 MG/2 ML INJ ONE ×2 (07:17→10:21)
[2024-12-28] MEDS ORDERED: LIDOCAINE 1% 20 ML MDV ONE (07:17)
[2024-12-28] MEDS ORDERED: ATROPINE SULF 1 MG/10 ML SYR IV ONE (07:17)
[2024-12-28] MEDS ORDERED: HEPARIN 5000 UNIT/ML 1 ML VIAL ONE (07:18)
[2024-12-28] MEDS ORDERED: TICAGRELOR 90 MG TABLET PO ONE (07:18)
[2024-12-28] MEDS ORDERED: ASPIRIN 325 MG TAB ONE (07:18)
[2024-12-28] MEDS ORDERED: FENTANYL CITR 100 MCG/2 ML ONE ×2 (07:18→10:22)
[2024-12-28] MEDS ORDERED: CLOPIDOGREL 75 MG TABLET ONE (07:18)
[2024-12-28] MEDS ORDERED: NALOXONE 0.4 MG/ML VIAL ONE (07:19)
[2024-12-28] MEDS ORDERED: FLUMAZENIL 0.1 MG/ML (5 mL VIAL) IV ONE (07:19)
[2024-12-28] MEDS ORDERED: NITROGLYCERIN/D5W 50 MG/250 ML BTL IV ONE (07:22)
[2024-12-28] MEDS: CEPHALEXIN 250 MG CAP PO SCH (07:25)
[2024-12-28] MEDS: ENOXAPARIN 40 MG/0.4 ML SQ SCH (07:48)
[2024-12-28] MEDS: ASPIRIN EC 81 MG TAB PO SCH (08:39)
[2024-12-28] MEDS: METOPROLOL XL 25 MG TAB PO SCH (08:39)
[2024-12-28] MEDS ORDERED: NA CHLORIDE 0.9% 500 ML ONE (10:35)
--- NOTE | 2024-12-28 10:41 | P.CNS ---
Date of Consult: 12/28/24 Chief Complaint: chest pain History of Present Illness: Patient with PMH of CAD, HTN presented with chest pain that started two days ago, pressure in nature, associated with dizziness, also report CUELLAR, denies any other cardiac symptoms. Allergies codeine Allergy (Verified 12/28/24 06:13) Itching/Hives/Rash morphine Allergy (Verified 12/28/24 06:13) Itching/Hives/Rash prednisone Adverse Reaction (Verified 12/28/24 06:13) Nausea/Vomiting Home medications list reviewed: Yes Home Medications: Montelukast [Singulair*] 10 mg PO DAILYPRN PRN 09/19/13 Metoprolol Succinate [Toprol Xl*] 25 mg PO DAILY 12/27/24 - Past Medical/Surgical History Diabetic: No -: asthma -: seasonal allergies -: hyperlipidemia -: R shoulder sx -: Left and right knee sx Psychosocial/ Personal History: Patient lives at home with his . - Social History Smoking Status: Never smoker Alcohol use: Yes CD- Drugs: No Caffeine use: Yes Place of Residence: Home Review of Systems 10-point ROS is otherwise unremarkable Physical Examination Temp Pulse Resp BP Pulse Ox 98.0 F 71 16 144/81 H 95 12/28/24 08:00 12/28/24 08:00 12/28/24 08:00 12/28/24 08:00 12/28/24 08:00 General: Alert, In no apparent distress HEENT: Atraumatic, PERRLA, Mucous membr. moist/pink, EOMI, Sclerae nonicteric Neck: Supple, 2+ carotid pulse no bruit, No LAD, Without JVD or thyroid abnormality Respiratory: Clear to auscultation bilaterally, Normal air movement Cardiovascular: Regular rate/rhythm, Normal S1 S2 Gastrointestinal: Normal bowel sounds, No tenderness Musculoskeletal: No tenderness Integumentary: No rashes Neurological: Normal gait, Normal speech, Normal tone, Normal affect Lymphatics: No axilla or inguinal lymphadenopathy Laboratory Data (last 24 hrs) 12/27/24 09:28 APTT 34.8 - Problems (1) Unstable angina Current Visit: Yes Status: Acute Plan: NPO for coronary angiogram ASA 81 mg daily Lipitor 40 mg daily (2) HTN (hypertension) Current Visit: Yes Status: Acute Plan: continue Toprol XL continue to monitor. (3) Elevated brain natriuretic peptide (BNP) level Current Visit: Yes Status: Acute Plan: recommend Lasix 20 mg IV BID Continue to monitor input and output and electrolytes.
--- NOTE | 2024-12-28 12:41 | P.PN ---
Date of Service: 12/28/24 Subjective: Has a rash over his IV sites. Denies any fevers or chills. No chest pain overnight. Discussed with nursing staff to remove IV Review of Systems General: As per HPI Eyes: Unremarkable ENT: Unremarkable Respiratory: Unremarkable Cardiovascular: Chest Pain Gastrointestinal: Unremarkable Genitourinary: Unremarkable Musculoskeletal: Unremarkable Neurological: Unremarkable Lymphatics: Unremarkable Physical Examination - Physical Exam General: In no apparent distress HEENT: Normocephalic Neck: Supple Respiratory: Clear to auscultation bilaterally, Normal air movement Cardiovascular: No edema Capillary refill: <2 Seconds Gastrointestinal: Normal bowel sounds, Soft and benign Musculoskeletal: No clubbing Neurological: Normal strength at 5/5 x4 extr - Studies Laboratory Data (last 24 hrs) 12/27/24 12/27/24 12/27/24 09:28 09:28 09:28 WBC 12.60 H Hgb 14.7 Hct 42.9 Plt Count 175 PT 13.7 H INR 1.21 Sodium 135 L Potassium 4.1 BUN 14 Creatinine 0.87 Glucose 115 H Magnesium 2.0 Total Bilirubin 0.8 AST 15 ALT 20 Alkaline Phosphatase 61 Lipase 40 Assessment and Plan - Plan Chest pain Rash Allergy BPH Elevated BNP Hypertension heart cath this morning Start aspirin, statin, beta-tanya, continue heparin Appreciate cardiology help Troponin trend flat Echocardiogram Chest x-ray reviewed no acute process Continue Toprol Appears to be related to tape covering IV site. give Benadryl p.o. 25 mg for rash. DVT prophylaxis with Lovenox - Advance Directives Does patient have a Living Will: No Does patient have a Durable POA for Healthcare: No
[2024-12-28] MEDS: DIPHENHYDRAMINE 25 MG TAB/CAP PO ONE (12:52)
--- NOTE | 2024-12-28 13:23 | OP ---
Date of Procedure: 12/28/2024 Surgeon: Clint Spaulding Procedure Performed: Left heart catheterization with selective coronary angiogram. Indication For Procedure: Unstable angina. Complications: None. Estimated Blood Loss: Less than 50 cc. Access: Right radial, closed by TR band. Sedation Time: 20 minutes with 1 of Versed and 50 of fentanyl. Description Of Procedure: After risks, benefits, and alternatives were explained to the patient, the patient agreed to proceed with procedure and signed informed consent. The patient was brought back to the laboratory apparatus glass grinder, prepped and draped in sterile fashion. Time-out was performed. Sedation was admini stered. Next, right common femoral artery access was obtained using ultrasound-guided micropuncture technique. A JL4 catheter was advanced to the aortic root. Selective angiogram was done using the s king catheter of the left coronary system. Then, that catheter was later exchanged with a JR4 cathete r to the LV. LVEDP was obtained. Pullback did not show any gradient. This catheter was used for se lective angiogram of the right coronary system. At the end of procedure, catheter was removed over a J-wire. Sheath was removed. Mynx was applied. Hemostasis achieved. The patient was moved back to recovery in stable condition. Findings: 1. Left main, normal. 2. LAD, mild luminal irregularities. 3. Left circ, mild luminal irregularities. 4. RCA, mild luminal irregularities. 5. LVEDP is 20 mmHg. Assessment And Plan: 1. Normal coronaries with mild elevated filling pressure. 2. Plan is to continue medical management. TANYA/ELSIE Voice ID: [id number] Report ID: [id number]
--- NOTE | 2024-12-28 13:25 | ECHO ---
HEIGHT: 6 ft 0 in WEIGHT: 258 lb 0 oz DATE OF STUDY: 12/28/[address]: Tato Roa MD 2-DIMENSIONAL: YES M.MODE: YES DOPPLER: YES COLOR FLOW: YES TDS: YES PORTABLE: YES DEFINITY: BUBBLE STUDY: DIAGNOSIS: CONGESTIVE HEART FAILURE CARDIAC HISTORY: CATHERIZATION: YES SURGERY: NO PROSTHETIC VALVE: NO PACEMAKER: NO MEASUREMENTS (cm) DIASTOLIC (NORMALS) SYSTOLIC (NORMALS) IVSd 1.3 (0.6-1.2) LA Diam 3.4 (1.9-4.0) LVEF 60-65% LVIDd 5.1 (3.5-5.7) LVIDs 3.9 (2.0-3.5) %FS 24% LVPWd 1.5 (0.6-1.2) Ao Diam 3.1 (2.0-3.7) 2 DIMENSIONAL ASSESSMENT: RIGHT ATRIUM: NORMAL LEFT ATRIUM: NORMAL RIGHT VENTRICLE: NORMAL LEFT VENTRICLE: NORMAL TRICUSPID VALVE: TRACE TRICUSPID REGURGITATION MITRAL VALVE: TRACE MITRAL REGURGITATION PULMONIC VALVE: NORMAL AORTIC VALVE: NORMAL PERICARDIAL EFFUSION: NONE AORTIC ROOT: NORMAL LEFT VENTRICULAR WALL MOTION: NORMAL DOPPLER/COLOR FLOW: GRADE I DIASTOLIC DYSFUNCTION COMMENTS: 1. NORMAL LEFT VENTRICULAR SYSTOLIC FUNCTION, EJECTION FRACTION 60-65%, NORMAL WALL MOTION 2. GRADE I DIASTOLIC DYSFUNCTION TECHNOLOGIST: INGRID KOEHLER
[2024-12-28] MEDS: FUROSEMIDE 20 MG/ 2ML VIAL IV SCH (18:07)
[2024-12-29 01:08] VITALS: O2SAT 96
[2024-12-29 06:48] LABS: Absolute Eosinophils 0.4 K/uL (0-0.5); Absolute Lymphocytes (CBC) 1.1 K/uL (0.7-4.9); Absolute Monocytes 0.8 K/uL (0.1-1.3); Absolute Neutrophil 5.8 K/uL (1.8-8.0); Basophils % 0.5 % (0-1.3); Eosinophils % 4.3 % (0-4.4); Hematocrit 41.9 % (39.6-49.0); Hemoglobin 14.2 g/dL (13.6-17.9); Lymphocytes % 13.4 % (15.3-44.8); MCHC 33.9 g/dL (32.0-36.0); MCV 82.7 fL (80-100); MPV 8.9 fL (7.6-11.3); Monocytes % 9.3 % (3.3-12.3); Neutrophils % 72.5 % (41.7-73.7); Platelets 169 thou/uL (152-406); RBC Red Blood Cell Count 5.06 M/uL (4.33-5.43); Red Cell Distribution Width 14.1 % (12.1-15.2)
[2024-12-29 07:01] LABS: Anion Gap 9.3 mEq/L (5.0-15.0); Potassium 3.3 mEq/L (3.5-5.1)
[2024-12-29] MEDS: DIPHENHYDRAMINE 25 MG TAB/CAP PO ONE (07:41)
[2024-12-29 07:43] VITALS: BP 150/73; TEMP 98.2
--- NOTE | 2024-12-29 10:28 | P.PN ---
Subjective Date of Service: 12/29/24 Chief Complaint: chest pain Subjective: No new changes, No C/O voiced, Tolerating diet, Ambulating, Improving Review of Systems 10-point ROS is otherwise unremarkable Physical Examination - Vital Signs Temperature: 98.2 F Blood Pressure: 150/73 Pulse: 76 Respirations: 18 Pulse Ox (%): 96 - Physical Exam General: Alert, In no apparent distress HEENT: Atraumatic, PERRLA, EOMI Neck: Supple, JVD not distended Respiratory: Clear to auscultation bilaterally, Normal air movement Cardiovascular: Regular rate/rhythm, Normal S1 S2 Gastrointestinal: Normal bowel sounds, No tenderness Musculoskeletal: No tenderness Integumentary: No rashes Neurological: Normal speech, Normal tone, Normal affect Lymphatics: No axilla or inguinal lymphadenopathy - Studies Medications List Reviewed: Yes Assessment And Plan - Current Problems (Diagnosis) (1) Unstable angina Current Visit: Yes Status: Acute Plan: coronary angiogram shows normal coronaries ASA 81 mg daily Lipitor 40 mg daily (2) HTN (hypertension) Current Visit: Yes Status: Acute Plan: continue Toprol XL 25 mg daily continue to monitor. (3) Elevated brain natriuretic peptide (BNP) level Current Visit: Yes Status: Acute Plan: switch lasix to 20 mg daily on discharge Continue to monitor input and output and electrolytes. (4) PVC (premature ventricular contraction) Current Visit: Yes Status: Acute Plan: start Amiodarone 200 mg po BID Continue Toprol XL 25 mg daily outpatient follow up with cardiology for event monitor. Echo shows normal EF, normal schrader motion, grade I DD.
--- NOTE | 2024-12-29 11:50 | EKG ---
Test Date: 2024-12-27 Test Time: 08:53:33 Director Translation: HB MEASUREMENT RESULTS: Intervals: Rate: 78 MI: 218 QRSD: 142 QT: 430 QTc: 490 [place]: P: 36 MI: 218 QRS: 12 T: 187 INTERPRETIVE STATEMENTS: Sinus rhythm with 1st degree AV block with premature supraventricular complexes Left bundle branch block Abnormal ECG Compared to ECG 07/11/2023 14:27:22 Atrial premature complex(es) now present Left bundle-branch block now present Electronically Signed On 12-29-24 11:44:22 CDT by Clint Spaulding
--- NOTE | 2024-12-29 12:43 | P.DS ---
Admission Date: 12/27/24 Discharge Date: 12/29/24 Disposition: ROUTINE DISCHARGE Discharge Condition: GOOD Reason for Admission: chest pain Brief History of Present Illness: 74-year-old male with a past medical history of BPH, tachyarrhythmia (follows with Dr. Huggins) presenting with chest pain that began yesterday. The pain does not radiate. Associated symptoms include dizziness, and nausea. He has not taken any medication for the chest pain. He denies chest pain with exertion. He denies tobacco use. He denies any previous heart attack or strokes. He was given aspirin and Pepcid in the ED. In addition to being started on heparin drip. He does not have any implants including pacemakers or ports. Hospital Course: 74-year-old male with a past medical history of BPH, tachyarrhythmia, presented with chest pain. Upon admission cardiology was consulted. He was taken for coronary angiogram. Angiogram did not revealed normal coronaries. He will continue on aspirin upon discharge. His hospital course was complicated with rash over IV site. He developed lip swelling prior to discharge. He was treated with Benadryl and the rash as well as lip swelling improved. 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 Echo showed normal EF With grade 1 diastolic dysfunction. The remainder of his medical problems are chronic and stable. He is medically optimized for discharge. Vital Signs/Physical Exam: Temp Pulse Resp BP Pulse Ox 98.2 F 76 18 150/73 H 96 12/29/24 10:28 12/29/24 10:28 12/29/24 10:28 12/29/24 10:28 12/29/24 10:28 General: In no apparent distress HEENT: Normocephalic Neck: Supple Respiratory: Clear to auscultation bilaterally, Normal air movement Cardiovascular: No edema Capillary refill: <2 Seconds Gastrointestinal: Normal bowel sounds, Soft and benign Musculoskeletal: No clubbing Integumentary: Rash(es), Other (Lip swelling) Neurological: Normal speech Lymphatics: No axilla or inguinal lymphadenopathy External genitalia: No edema Laboratory Data at Discharge: WBC 8.10 thou/uL (4.3-10.9) 12/29/24 06:30 Hgb 14.2 g/dL (13.6-17.9) 12/29/24 06:30 Hct 41.9 % (39.6-49.0) 12/29/24 06:30 Plt Count 169 thou/uL (152-406) 12/29/24 06:30 PT 13.7 SECONDS (10-13.0) H 12/27/24 09:28 INR 1.21 12/27/24 09:28 APTT 34.8 SECONDS (27.2-37.4) 12/27/24 09:28 Sodium 135 mEq/L (136-145) L 12/29/24 06:30 Potassium 3.3 mEq/L (3.5-5.1) L D 12/29/24 06:30 BUN 13 mg/dL (7-18) 12/29/24 06:30 Creatinine 0.81 mg/dL (0.70-1.30) 12/29/24 06:30 Glucose 99 mg/dL (74-106) 12/29/24 06:30 Magnesium 2.0 mg/dL (1.6-2.4) 12/27/24 09:28 Total Bilirubin 0.8 mg/dL (0.2-1.0) 12/27/24 09:28 AST 15 U/L (15-37) 12/27/24 09:28 ALT 20 U/L (16-61) 12/27/24 09:28 Alkaline Phosphatase 61 U/L (45-117) 12/27/24 09:28 Triglycerides 63 mg/dL (<150) 12/28/24 05:20 Cholesterol 156 mg/dL (<200) 12/28/24 05:20 HDL Cholesterol 64 mg/dL (40-60) H 12/28/24 05:20 Cholesterol/HDL Ratio 2.44 12/28/24 05:20 Lipase 40 U/L (13-75) 12/27/24 09:28 Home Medications: Montelukast [Singulair*] 10 mg PO DAILYPRN PRN 09/19/13 Metoprolol Succinate [Toprol Xl*] 25 mg PO DAILY 12/27/24 Amiodarone HCl [Cordarone*] 200 mg PO BID #60 tab 12/29/24 Aspirin [Aspirin EC 81 MG] 81 mg PO DAILY #30 tab 12/29/24 Furosemide [Lasix] 20 mg PO DAILY #30 tab 12/29/24 New Medications: Aspirin [Aspirin EC 81 MG] 81 mg PO DAILY #30 tab Amiodarone HCl [Cordarone*] 200 mg PO BID #60 tab Furosemide [Lasix] 20 mg PO DAILY #30 tab Followup: Clint Spaulding MD [ACTIVE - CAN ADMIT] - 1-2 Weeks Jaison Landers DO [Primary Care Provider] - 1-2 Weeks
[2024-12-29] MEDS: POTASSIUM CL SA 10 MEQ TAB PO ONE (12:48)
== END 2024-12-29 13:23 | disposition home or self-care (01) ==
LOC: ER 08:41 → ERHOLD 12:18 → 2ND 12:49
PROVIDERS: ADMIT Family Medicine; ATTEND Family Medicine
PROC: 4A023N7 Measurement of Cardiac Sampling and Pressure, Left Heart, Percutaneous Approach (ICD-10-PCS; principal; 2024-12-28)
PROC: B2111ZZ Fluoroscopy of Multiple Coronary Arteries using Low Osmolar Contrast (ICD-10-PCS; 2024-12-28)
DX: I20.0 Unstable angina (principal); I49.3 Ventricular premature depolarization; I10 Essential (primary) hypertension; R21 Rash and other nonspecific skin eruption; N40.0 Benign prostatic hyperplasia without lower urinary tract symptoms; R42 Dizziness and giddiness; E78.5 Hyperlipidemia, unspecified; R74.8 Abnormal levels of other serum enzymes; J45.909 Unspecified asthma, uncomplicated; J30.2 Other seasonal allergic rhinitis; E66.9 Obesity, unspecified; Z68.35 Body mass index [BMI] 35.0-35.9, adult; Z88.5 Allergy status to narcotic agent; Z88.8 Allergy status to other drugs, medicaments and biological substances
CPT/HCPCS: 96365; 93005; 93306; 85025 ×3; 80048 ×3; 36415 ×2; 83735; 85610; 80061; 80076; 85730; 84484 ×3; 83690; 83880; 71045; 93458; 76937; 96375; 99285; 96366; C1893; Q9966; J1644 ×2; J1938 ×2; J2003; J1650; J2250; J3010; J7040 ×2; 99152; 99153; G0378; J0461; J2310; J7512

== ENCOUNTER 2025-05-20 11:45 | Observation (INO) | payer OTHER ==
--- OUTSIDE RECORDS SUMMARY | 2025-05-20 11:51 | XMS REPORT | Continuity of Care Document ---
Author Name Unknown Address [address] [facility] [address] [place] [address] [facility] [place] Address [address] [facility] [address] [place] [address] Care Team Providers Care Au Pair Name Role Phone Jaison Landers Attending Clinician Unavailable Zachary Chaney Attending Clinician Jaison Li Admitting Clinician Unavailable Payers Payer Name Policy Type Policy Number Effective Date Expirati on Date Source [employer] Replace [id number] [id number] [facility] MEDICARE NOVITAS [id number] [facility] [employer] Medicare Replace [id number] [facility] MEDICARE NOVITAS MB [id number] [facility] MEDICARE NOVITAS [id number] [facility] [employer] Medicare Replace [id number] [facility] Problems Condition Name Condition Details Condition Category Status Onset Date Resolution Date Last Treatment Date Treating Clinician Comments Source 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 Problem [facility] Primary insomnia Primary insomnia Problem [facility] Urge incontinen ce Urge incontinen ce Problem [facility] 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 Problem [facility] Impotence of organic origin Erectile dysfunctio n, unspecifie d erectile dysfunctio n type Problem [facility] Mixed hyperlipid emia Mixed hyperlipid emia Problem [facility] HTN, goal below 140/80 HTN, goal below 140/80 Problem [facility] BPH loc w urin obs/LUTS BPH loc w urin obs/LUTS Problem [facility] Seasonal allergies Seasonal allergies Problem [facility] Low libido Low libido Problem Co mmon [facility] Adult BMI 34.0-34.9 kg/sq m Adult BMI 34.0-34.9 kg/sq m Problem [facility] Non-season al allergic rhinitis, unspecifie d trigger Non-season al allergic rhinitis, unspecifie d trigger Problem [facility] 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 Problem [facility] Paroxysmal atrial fibrillati on Paroxysmal atrial fibrillati on Problem [facility] 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 Problem [facility] Allergies, Adverse Reactions, Alerts Allergy Name Allergy Type Status Severity Reaction(s) Onset Date Inactive Date Treating Clinician Comments Source morphine DA Active MO SEVERE NAUSEA AND DIZZINESS 09-22 00:00: 00 [facility] codeine DA Active MO SEVERE NAUSEA AND DIZZINESS 09-22 00:00: 00 [facility] hydrocod one DA Active MO SEVERE NAUSEA AND DIZZINESS 09-22 00:00: 00 [facility] predniso ne DA Active MO SEVERE NAUSEA, ITCHING, RASH, HALLUCINATIO NS 09-22 00:00: 00 [facility] morphine morphine Active Unknown Commo [facility] codeine codeine Active Unknown [facility] Social History Social Habit Start Date Stop Date Quantity Comments Source History of Tobacco Use [facility] Sex Assigned At [facility] Smoking Status Start Date Stop Date Source Never Smoker [facility] Medications Ordered Medication Name Filled Medication Name Start Date Stop Date Current Medication? Ordering Clinician Indication Dosage Frequency Signature (SIG) Comments Components Source Kenalog (Triamcinol one) Kenalog (Triamcinol one) 04-28 00:00: 00 No 40mg [facility] Singulair 10 MG Singulair 10 MG No 1{table t} QD Singulair 10 MG Metoprolol Succinate ER 25 MG Metoprolol Succinate ER 25 MG No 1{table t} QD Metoprolol Succinate ER 25 MG Furosemide 20 MG Furosemide 20 MG No 1{table t} QD Furosemide 20 MG Amiodarone HCl 200 MG Amiodarone HCl 200 MG No Amiodarone HCl 200 MG Vital Signs Vital Name Observation Time Observation Value Comments S ource height 2025-04-28 08:30:00 73 [in_i] [facility]mo n [facility] weight 2025-04-28 08:30:00 261 [lb_av] Comm on [facility] temperature 2025-04-28 08:30:00 97.8 [degF] Com mon [facility] bmi 2025-04-28 08:30:00 34.43 kg/m2 Comm on [facility] oximetry 2025-04-28 08:30:00 96 % [facility] respiratory rate 2025-04-28 08:30:00 16 /min [facility] blood pressure systolic 2025-04-28 08:30:00 132 mm[Hg] [facility] blood pressure diastolic 2025-04-28 08:30:00 76 mm[Hg] [facility] height 2024-12-21 13:45:00 73 [in_i] Commo n [facility] weight 2024-12-21 13:45:00 264 [lb_av] Comm on [facility] temperature 2024-12-21 13:45:00 97.3 [degF] Com [facility] bmi 2024-12-21 13:45:00 34.83 kg/m2 Comm on [facility] oximetry 2024-12-21 13:45:00 97 % Commo [facility] respiratory rate 2024-12-21 13:45:00 18 /min [facility] blood pressure systolic 2024-12-21 13:45:00 120 mm[Hg] [facility] blood pressure diastolic 2024-12-21 13:45:00 58 mm[Hg] [facility] height 2024-12-21 13:50:00 73 [in_i] Commo n [facility] weight 2024-12-21 13:50:00 264 [lb_av] Comm on [facility] temperature 2024-12-21 13:50:00 97.3 [degF] Com mon [facility] bmi 2024-12-21 13:50:00 34.83 kg/m2 Comm on [facility] oximetry 2024-12-21 13:50:00 96 % Commo n [facility] blood pressure systolic 2024-12-21 13:50:00 120 mm[Hg] [facility] blood pressure diastolic 2024-12-21 13:50:00 58 mm[Hg] Common [facility] height 2024-10-06 08:00:00 73 [in_i] Commo n [facility] weight 2024-10-06 08:00:00 265 [lb_av] Comm on [facility] bmi 2024-10-06 08:00:00 34.96 kg/m2 Comm on [facility] height 2024-08-04 10:00:00 73 [in_i] Commo n [facility] weight 2024-08-04 10:00:00 271 [lb_av] Comm on [facility] temperature 2024-08-04 10:00:00 97.1 [degF] Com mon [facility] bmi 2024-08-04 10:00:00 35.75 kg/m2 Comm on [facility] oximetry 2024-08-04 10:00:00 97 % [facility] respiratory rate 2024-08-04 10:00:00 17 /min Common [facility] blood pressure systolic 2024-08-04 10:00:00 143 mm[Hg] Common [facility] blood pressure diastolic 2024-08-04 10:00:00 76 mm[Hg] Common [facility] height 2024-03-31 10:20:00 73 [in_i] Commo n [facility] weight 2024-03-31 10:20:00 266.6 [lb_av] Co mmon [facility] temperature 2024-03-31 10:20:00 97.2 [degF] Com mon [facility] bmi 2024-03-31 10:20:00 35.17 kg/m2 Comm on [facility] oximetry 2024-03-31 10:20:00 96 % Commo [facility] blood pressure systolic 2024-03-31 10:20:00 142 mm[Hg] [facility] blood pressure diastolic 2024-03-31 10:20:00 72 mm[Hg] Common [facility] height 2024-03-31 10:20:00 73 [in_i] Commo n [facility] weight 2024-03-31 10:20:00 266.6 [lb_av] Co mmon [facility] temperature 2024-03-31 10:20:00 97.2 [degF] Com [facility] bmi 2024-03-31 10:20:00 35.17 kg/m2 Comm on [facility] oximetry 2024-03-31 10:20:00 96 % Commo n [facility] blood pressure systolic 2024-03-31 10:20:00 142 mm[Hg] [facility] blood pressure diastolic 2024-03-31 10:20:00 72 mm[Hg] [facility] height 2024-03-11 08:40:00 73 [in_i] Commo n [facility] weight 2024-03-11 08:40:00 265.4 [lb_av] [facility] 2024-03-11 08:40:00 97.3 [degF] Com [facility] bmi 2024-03-11 08:40:00 35.01 kg/m2 Comm on [facility] oximetry 2024-03-11 08:40:00 96 % Commo n [facility] respiratory rate 2024-03-11 08:40:00 17 /min Common [facility] blood pressure systolic 2024-03-11 08:40:00 139 mm[Hg] [facility] blood pressure diastolic 2024-03-11 08:40:00 77 mm[Hg] [facility] height 2023-11-26 08:30:00 73 [in_i] Commo n [facility] weight 2023-11-26 08:30:00 261.0 [lb_av] Co mmon [facility] temperature 2023-11-26 08:30:00 97.6 [degF] Com [facility] bmi 2023-11-26 08:30:00 34.43 kg/m2 Comm on [facility] oximetry 2023-11-26 08:30:00 96 % Commo n [facility] respiratory rate 2023-11-26 08:30:00 17 /min Common [facility] blood pressure systolic 2023-11-26 08:30:00 141 mm[Hg] [facility] blood pressure diastolic 2023-11-26 08:30:00 80 mm[Hg] [facility] height 2023-11-26 08:00:00 73 [in_i] Commo n [facility] weight 2023-11-26 08:00:00 261.0 [lb_av] Co [facility] temperature 2023-11-26 08:00:00 97.6 [degF] Com [facility] bmi 2023-11-26 08:00:00 34.43 kg/m2 Comm on [facility] oximetry 2023-11-26 08:00:00 96 % Commo n [facility] respiratory rate 2023-11-26 08:00:00 17 /min [facility] blood pressure systolic 2023-11-26 08:00:00 141 mm[Hg] [facility] blood pressure diastolic 2023-11-26 08:00:00 80 mm[Hg] [facility] height 2023-08-06 08:50:00 73 [in_i] Commo n [facility] weight 2023-08-06 08:50:00 259.0 [lb_av] Co on [facility] temperature 2023-08-06 08:50:00 97.4 [degF] Com [facility] bmi 2023-08-06 08:50:00 34.17 kg/m2 Comm on [facility] oximetry 2023-08-06 08:50:00 96 % Commo n [facility] respiratory rate 2023-08-06 08:50:00 17 /min Common [facility] blood pressure systolic 2023-08-06 08:50:00 133 mm[Hg] [facility] blood pressure diastolic 2023-08-06 08:50:00 71 mm[Hg] [facility] height 2023-04-16 08:20:00 73 [in_i] Commo n [facility] weight 2023-04-16 08:20:00 261.2 [lb_av] Co on [facility] temperature 2023-04-16 08:20:00 97.4 [degF] Com mon [facility] bmi 2023-04-16 08:20:00 34.46 kg/m2 Comm on [facility] oximetry 2023-04-16 08:20:00 93 % Commo n [facility] respiratory rate 2023-04-16 08:20:00 16 /min [facility] blood pressure systolic 2023-04-16 08:20:00 142 mm[Hg] [facility] blood pressure diastolic 2023-04-16 08:20:00 72 mm[Hg] [facility] height 2023-03-04 11:45:00 73 [in_i] Commo n [facility] weight 2023-03-04 11:45:00 261.4 [lb_av] Co mmon [facility] temperature 2023-03-04 11:45:00 97.9 [degF] Com mon [facility] bmi 2023-03-04 11:45:00 34.48 kg/m2 Comm on [facility] oximetry 2023-03-04 11:45:00 94 % Commo n [facility] respiratory rate 2023-03-04 11:45:00 18 /min [facility] blood pressure systolic 2023-03-04 11:45:00 148 mm[Hg] Common [facility] blood pressure diastolic 2023-03-04 11:45:00 75 mm[Hg] [facility] height 2023-01-07 10:15:00 73 [in_i] Commo n [facility] weight 2023-01-07 10:15:00 264 [lb_av] Comm on [facility] temperature 2023-01-07 10:15:00 97.3 [degF] Com mon [facility] bmi 2023-01-07 10:15:00 34.83 kg/m2 Comm on [facility] oximetry 2023-01-07 10:15:00 99 % Commo n [facility] respiratory rate 2023-01-07 10:15:00 18 /min [facility] blood pressure systolic 2023-01-07 10:15:00 146 mm[Hg] [facility] blood pressure diastolic 2023-01-07 10:15:00 68 mm[Hg] [facility] height 2022-12-11 08:20:00 73 [in_i] Commo n [facility] weight 2022-12-11 08:20:00 260.3 [lb_av] Co mmon [facility] temperature 2022-12-11 08:20:00 97.2 [degF] Com mon [facility] bmi 2022-12-11 08:20:00 34.34 kg/m2 Comm on [facility] oximetry 2022-12-11 08:20:00 97 % Commo n [facility] respiratory rate 2022-12-11 08:20:00 16 /min Common [facility] blood pressure systolic 2022-12-11 08:20:00 142 mm[Hg] [facility] blood pressure diastolic 2022-12-11 08:20:00 79 mm[Hg] [facility] height 2022-12-11 08:20:00 73 [in_i] Commo n [facility] weight 2022-12-11 08:20:00 260.3 [lb_av] Co mmon [facility] temperature 2022-12-11 08:20:00 97.2 [degF] Com [facility] bmi 2022-12-11 08:20:00 34.34 kg/m2 Comm on [facility] oximetry 2022-12-11 08:20:00 97 % Commo n [facility] respiratory rate 2022-12-11 08:20:00 16 /min Common [facility] blood pressure systolic 2022-12-11 08:20:00 142 mm[Hg] Common [facility] blood pressure diastolic 2022-12-11 08:20:00 79 mm[Hg] Common [facility] height 2022-10-08 09:45:00 73 [in_i] Commo n [facility] weight 2022-10-08 09:45:00 267 [lb_av] Comm on [facility] temperature 2022-10-08 09:45:00 97.3 [degF] Com [facility] bmi 2022-10-08 09:45:00 35.22 kg/m2 Comm on [facility] oximetry 2022-10-08 09:45:00 96 % Commo n [facility] respiratory rate 2022-10-08 09:45:00 18 /min Common [facility] blood pressure systolic 2022-10-08 09:45:00 142 mm[Hg] [facility] blood pressure diastolic 2022-10-08 09:45:00 60 mm[Hg] Common [facility] height 2022-09-03 13:30:00 73 [in_i] Commo n [facility] weight 2022-09-03 13:30:00 266 [lb_av] Comm on [facility] bmi 2022-09-03 13:30:00 35.09 kg/m2 Comm on [facility] height 2022-08-27 08:45:00 73 [in_i] Commo n [facility] weight 2022-08-27 08:45:00 266.8 [lb_av] Co mmon [facility] temperature 2022-08-27 08:45:00 97.7 [degF] Com mon [facility] bmi 2022-08-27 08:45:00 35.2 kg/m2 Commo n [facility] oximetry 2022-08-27 08:45:00 97 % Commo n [facility] respiratory rate 2022-08-27 08:45:00 16 /min [facility] blood pressure systolic 2022-08-27 08:45:00 143 mm[Hg] Common [facility] blood pressure diastolic 2022-08-27 08:45:00 87 mm[Hg] Common [facility] height 2022-08-14 08:20:00 73 [in_i] Commo n [facility] weight 2022-08-14 08:20:00 265.2 [lb_av] Co mmon [facility] temperature 2022-08-14 08:20:00 97.3 [degF] Com [facility] bmi 2022-08-14 08:20:00 34.99 kg/m2 Comm on [facility] oximetry 2022-08-14 08:20:00 99 % Commo n [facility] respiratory rate 2022-08-14 08:20:00 18 /min Common [facility] blood pressure systolic 2022-08-14 08:20:00 138 mm[Hg] [facility] blood pressure diastolic 2022-08-14 08:20:00 76 mm[Hg] Common [facility] height 2022-04-24 08:10:00 73 [in_i] Commo n [facility] weight 2022-04-24 08:10:00 256.9 [lb_av] Co mmon [facility] temperature 2022-04-24 08:10:00 96.9 [degF] Com [facility] bmi 2022-04-24 08:10:00 33.89 kg/m2 Comm on [facility] oximetry 2022-04-24 08:10:00 97 % Commo n [facility] respiratory rate 2022-04-24 08:10:00 16 /min Common [facility] blood pressure systolic 2022-04-24 08:10:00 139 mm[Hg] [facility] blood pressure diastolic 2022-04-24 08:10:00 76 mm[Hg] Common [facility] height 2022-02-20 13:15:00 73 [in_i] Commo n [facility] weight 2022-02-20 13:15:00 258.2 [lb_av] Co mmon [facility] temperature 2022-02-20 13:15:00 97.1 [degF] Com [facility] bmi 2022-02-20 13:15:00 34.06 kg/m2 Comm on [facility] oximetry 2022-02-20 13:15:00 96 % Commo n [facility] respiratory rate 2022-02-20 13:15:00 16 /min Common [facility] blood pressure systolic 2022-02-20 13:15:00 162 mm[Hg] [facility] blood pressure diastolic 2022-02-20 13:15:00 74 mm[Hg] Common [facility] height 2021-12-26 08:30:00 73 [in_i] Commo n [facility] weight 2021-12-26 08:30:00 254.5 [lb_av] Co mmon [facility] temperature 2021-12-26 08:30:00 97.8 [degF] Com mon [facility] bmi 2021-12-26 08:30:00 33.57 kg/m2 Comm on [facility] oximetry 2021-12-26 08:30:00 98 % Commo n [facility] respiratory rate 2021-12-26 08:30:00 18 /min Common [facility] blood pressure systolic 2021-12-26 08:30:00 134 mm[Hg] [facility] blood pressure diastolic 2021-12-26 08:30:00 72 mm[Hg] Common [facility] height 2021-08-30 08:10:00 73 [in_i] Commo n [facility] weight 2021-08-30 08:10:00 249 [lb_av] Comm on [facility] temperature 2021-08-30 08:10:00 97.2 [degF] Com [facility] bmi 2021-08-30 08:10:00 32.85 kg/m2 Comm on [facility] blood pressure systolic 2021-08-30 08:10:00 132 mm[Hg] [facility] blood pressure diastolic 2021-08-30 08:10:00 67 mm[Hg] Common [facility] height 2021-08-30 09:20:00 73 [in_i] Commo n [facility] weight 2021-08-30 09:20:00 249 [lb_av] Comm on [facility] temperature 2021-08-30 09:20:00 97.2 [degF] Com [facility] bmi 2021-08-30 09:20:00 32.85 kg/m2 Comm on [facility] blood pressure systolic 2021-08-30 09:20:00 132 mm[Hg] [facility] blood pressure diastolic 2021-08-30 09:20:00 67 mm[Hg] Common [facility] height 2021-08-28 13:00:00 73 [in_i] Commo n [facility] weight 2021-08-28 13:00:00 249 [lb_av] Comm on [facility] temperature 2021-08-28 13:00:00 97.7 [degF] Com mon [facility] bmi 2021-08-28 13:00:00 32.85 kg/m2 Comm on [facility] height 2021-08-01 09:45:00 73 [in_i] Commo n [facility] weight 2021-08-01 09:45:00 249 [lb_av] Comm on [facility] temperature 2021-08-01 09:45:00 98.6 [degF] Com mon [facility] bmi 2021-08-01 09:45:00 32.85 kg/m2 Comm on [facility] oximetry 2021-08-01 09:45:00 96 % Commo n [facility] respiratory rate 2021-08-01 09:45:00 18 /min [facility] blood pressure systolic 2021-08-01 09:45:00 149 mm[Hg] [facility] blood pressure diastolic 2021-08-01 09:45:00 76 mm[Hg] Common [facility] height 2021-06-26 10:30:00 73 [in_i] Commo n [facility] weight 2021-06-26 10:30:00 256.2 [lb_av] Co mmon [facility] temperature 2021-06-26 10:30:00 97.1 [degF] Com mon [facility] bmi 2021-06-26 10:30:00 33.8 kg/m2 Commo n [facility] oximetry 2021-06-26 10:30:00 97 % Commo n [facility] blood pressure systolic 2021-06-26 10:30:00 153 mm[Hg] [facility] blood pressure diastolic 2021-06-26 10:30:00 89 mm[Hg] [facility] height 2021-05-03 08:00:00 73 [in_i] Commo n [facility] weight 2021-05-03 08:00:00 258.8 [lb_av] Co mmon [facility] temperature 2021-05-03 08:00:00 97.3 [degF] Com mon [facility] bmi 2021-05-03 08:00:00 34.14 kg/m2 Comm on [facility] oximetry 2021-05-03 08:00:00 97 % Commo n [facility] respiratory rate 2021-05-03 08:00:00 16 /min [facility] blood pressure systolic 2021-05-03 08:00:00 134 mm[Hg] [facility] blood pressure diastolic 2021-05-03 08:00:00 76 mm[Hg] [facility] Procedures Procedure Date / Time Performed Performing Clinicia n Source PVR 2023-01-07 00:00:00 [facility] Encounters Start Date/Time End Date/Time Encounter Type Admission Type Attending Clinicians Care Facility Care Department Encounter ID Source 2024-08-15 15:45:00 Outpatient Landers, Jaison ST[facility] STLC [id number] [facility] 2024-08-08 11:49:00 Outpatient Landers, Jaison [facility] [id number] [facility] 2024-06-27 06:43:00 Outpatient Landers, Jaison STLC STLMLC [id number] [facility] 2024-03-10 13:48:00 Outpatient Anshul Jaison [facility] STLC [id number] [facility] 2023-11-24 10:40:00 Outpatient Landers, Jaison STLMLC STLMLC [id number] [facility] 2023-08-04 14:50:00 Outpatient Landers, Jaison STLMLC STLMLC [id number] [facility] 2023-01-07 09:59:00 Outpatient Landers, Jaison STLMLC STLMLC [id number] [facility] 2022-09-03 08:45:00 Outpatient Landers, Jaison STLMLC STLMLC [id number] [facility] 2022-08-12 10:02:00 Outpatient Landers, Jaison STLMLC STLMLC [id number] [facility] 2021-09-18 14:30:59 Outpatient Landers, Jaison STLMLC STLMLC [id number] [facility] 2021-09-18 14:30:55 Outpatient Landers, Jaison STLMLC STLMLC [id number] [facility] 2021-09-18 13:26:00 Outpatient Landers, Jaison STLMLC STLMLC [id number] [facility] 2021-09-18 12:58:21 Outpatient Landers, Jaison STLMLC STLMLC [id number] [facility] 2021-09-18 12:29:58 Outpatient Landers, Jaison STLMLC STLMLC [id number] [facility] 2021-09-18 12:28:15 Outpatient Landers, Jaison STLMLC STLMLC [id number] [facility] 2021-09-18 12:27:16 Outpatient Landers, Jaison STLMLC STLMLC [id number] [facility] 2021-09-18 11:59:41 Outpatient Landers, Jaison STLMLC STLMLC [id number] [facility] 2021-09-18 11:59:23 Outpatient Landers, Jaison STLMLC STLMLC [id number] [facility] 2021-09-18 11:58:08 Outpatient Landers, Jaison STLMLC STLMLC [id number] [facility] 2021-09-18 11:22:04 Outpatient Landers, Jaison STLMLC STLMLC [id number] [facility] 2021-09-18 11:20:34 Outpatient Landers, Jaison STLMLC STLMLC [id number] [facility] 2025-05-16 06:00:00 2025-05-16 06:00:00 Outpatient Zachary Walker HCACL OUTD [id number] [facility] 2025-04-28 00:00:00 2025-04-28 00:00:00 OFFICE VISIT ESTAB PT LEVEL 4 STLMLC STLMLC [id number] [facility] 2025-03-22 00:00:00 2025-03-22 00:00:00 (TEL) STLMLC STLMLC [id number] [facility] 2025-01-27 00:00:00 2025-01-27 00:00:00 (TEL) STLMLC STLMLC [id number] [facility] 2024-12-21 00:00:00 2024-12-21 00:00:00 OFFICE VISIT ESTAB PT LEVEL 4 STLMLC STLMLC [id number] [facility] 2024-12-21 00:00:00 2024-12-21 00:00:00 SUB ANNUAL [facility] WELLNESS VISIT STLMLC STLMLC [id number] [facility] 2024-10-10 00:00:00 2024-10-10 00:00:00 (TEL) STLMLC STLMLC [id number] [facility] 2024-10-06 00:00:00 2024-10-06 00:00:00 OFFICE VISIT ESTAB PT LEVEL 3 STLMLC STLMLC [id number] [facility] 2024-10-06 00:00:00 2024-10-06 00:00:00 (TEL) STLMLC STLMLC [id number] [facility] 2024-10-05 00:00:00 2024-10-05 00:00:00 (TEL) STLMLC STLMLC [id number] [facility] 2024-08-04 00:00:00 2024-08-04 00:00:00 OFFICE VISIT ESTAB PT LEVEL 4 STLMLC STLMLC [id number] [facility] 2024-03-31 00:00:00 2024-03-31 00:00:00 OFFICE VISIT ESTAB PT LEVEL 4 STLMLC STLMLC [id number] [facility] 2024-03-21 00:00:00 2024-03-21 00:00:00 (TEL) STLMLC STLMLC [id number] [facility] 2024-03-11 00:00:00 2024-03-11 00:00:00 OFFICE VISIT ESTAB PT LEVEL 3 STLMLC STLMLC [id number] [facility] 2024-03-10 00:00:00 2024-03-10 00:00:00 (TEL) STLMLC STLMLC [id number] [facility] 2024-01-25 00:00:00 2024-01-25 00:00:00 (TEL) STLMLC STLMLC [id number] [facility] 2024-01-15 00:00:00 2024-01-15 00:00:00 (TEL) STLMLC STLMLC [id number] [facility] 2024-01-15 00:00:00 2024-01-15 00:00:00 (TEL) STLMLC STLMLC [id number] [facility] 2023-11-26 00:00:00 2023-11-26 00:00:00 OFFICE VISIT ESTAB PT LEVEL 4 STLMLC STLMLC [id number] [facility] 2023-11-26 00:00:00 2023-11-26 00:00:00 (TEL) STLMLC STLMLC [id number] [facility] 2023-11-26 00:00:00 2023-11-26 00:00:00 SUB ANNUAL MCR WELLNESS VISIT STLMLC STLMLC [id number] [facility] 2023-10-30 00:00:00 2023-10-30 00:00:00 (TEL) STLMLC STLMLC [id number] [facility] 2023-08-06 00:00:00 2023-08-06 00:00:00 OFFICE VISIT ESTAB PT LEVEL 4 STLMLC STLMLC [id number] [facility] 2023-04-16 00:00:00 2023-04-16 00:00:00 OFFICE VISIT ESTAB PT LEVEL 3 STLMLC STLMLC [id number] [facility] 2023-03-04 00:00:00 2023-03-04 00:00:00 OFFICE VISIT ESTAB PT LEVEL 4 STLMLC STLMLC [id number] [facility] 2023-01-07 00:00:00 2023-01-07 00:00:00 OFFICE VISIT ESTAB PT LEVEL 4 STLMLC STLMLC [id number] [facility] 2022-12-11 00:00:00 2022-12-11 00:00:00 OFFICE VISIT ESTAB PT LEVEL 4 STLMLC STLMLC [id number] [facility] 2022-12-11 00:00:00 2022-12-11 00:00:00 SUB ANNUAL MCR WELLNESS VISIT STLMLC STLMLC [id number] [facility] 2022-10-08 00:00:00 2022-10-08 00:00:00 OFFICE VISIT ESTAB PT LEVEL 5 STLMLC STLMLC [id number] [facility] 2022-09-03 00:00:00 2022-09-03 00:00:00 OFFICE VISIT EST PT LEVEL 3 STLMLC STLMLC [id number] [facility] 2022-09-03 00:00:00 2022-09-03 00:00:00 (TEL) STLMLC STLMLC [id number] [facility] 2022-08-27 00:00:00 2022-08-27 00:00:00 OFFICE VISIT ESTAB PT LEVEL 4 STLMLC STLMLC [id number] [facility] 2022-08-14 00:00:00 2022-08-14 00:00:00 OFFICE VISIT ESTAB PT LEVEL 4 STLMLC STLMLC [id number] [facility] 2022-06-30 00:00:00 2022-06-30 00:00:00 (TEL) STLMLC STLMLC [id number] [facility] 2022-04-24 00:00:00 2022-04-24 00:00:00 OFFICE VISIT ESTAB PT LEVEL 4 STLMLC STLMLC [id number] [facility] 2022-02-20 00:00:00 2022-02-20 00:00:00 OFFICE VISIT EST PT LEVEL 3 STLMLC STLMLC [id number] [facility] 2021-12-26 00:00:00 2021-12-26 00:00:00 OFFICE VISIT ESTAB PT LEVEL 4 STLMLC STLMLC [id number] [facility] 2021-08-30 00:00:00 2021-08-30 00:00:00 OFFICE VISIT EST PT LEVEL 3 STLMLC STLMLC [id number] [facility] 2021-08-30 00:00:00 2021-08-30 00:00:00 SUB ANNUAL MCR WELLNESS VISIT STLMLC STLMLC [id number] [facility] 2021-08-28 00:00:00 2021-08-28 00:00:00 OFFICE VISIT EST PT LEVEL 3 STLMLC STLMLC [id number] [facility] 2021-08-27 00:00:00 2021-08-27 00:00:00 (TEL) STLMLC STLMLC [id number] [facility] 2021-08-01 00:00:00 2021-08-01 00:00:00 OFFICE VISIT ESTAB PT LEVEL 4 STLMLC STLMLC [id number] [facility] 2021-06-26 00:00:00 2021-06-26 00:00:00 OFFICE VISIT ESTAB PT LEVEL 4 STLMLC STLMLC [id number] [facility] 2021-06-26 00:00:00 2021-06-26 00:00:00 (TEL) STLMLC STLMLC [id number] [facility] 2021-05-03 00:00:00 2021-05-03 00:00:00 OFFICE VISIT ESTAB PT LEVEL 4 STLMLC STLMLC [id number] [facility] 2021-03-25 00:00:00 2021-03-25 00:00:00 Outpatient STLMLC STLMLC [id number] [facility] 2021-03-11 00:00:00 2021-03-11 00:00:00 Outpatient STLMLC STLMLC [id number] [facility] 2021-03-11 00:00:00 2021-03-11 00:00:00 Outpatient STLMLC STLMLC [id number] [facility] 2021-03-07 00:00:00 2021-03-07 00:00:00 Outpatient STLMLC STLMLC [id number] [facility] 2020-12-31 00:00:00 2020-12-31 00:00:00 Outpatient STLMLC STLMLC [id number] [facility] 2020-12-31 00:00:00 2020-12-31 00:00:00 Outpatient STLMLC STLMLC [id number] [facility] 2020-09-26 00:00:00 2020-09-26 00:00:00 Outpatient STLMLC STLMLC [id number] [facility] 2020-06-20 00:00:2020-06-20 00:00:00 Outpatient STLMLC STLMLC [id number] [facility] 2020-06-13 00:00:00 2020-06-13 00:00:00 Outpatient STLMLC STLMLC [id number] [facility] 2020-06-11 00:00:00 2020-06-11 00:00:00 Outpatient STLMLC STLMLC [id number] [facility] 2020-03-23 08:30:00 2020-03-23 08:30:[address] [facility] [id number] [facility] 2020-03-16 08:47:00 2020-03-16 08:47:[address] [facility] [id number] [facility] 2020-02-14 14:07:00 2020-02-14 14:07:[address] [facility] [id number] [facility] 2019-12-29 08:15:00 2019-12-29 08:15:[address] [facility] [id number] [facility] 2019-12-29 08:00:00 2019-12-29 08:00:[address] [facility] [id number] [facility] 2019-09-27 08:15:00 2019-09-27 08:15:[address] [facility] [id number] [facility] 2019-09-20 08:13:00 2019-09-20 08:13:[address] [facility] [id number] [facility] 2019-08-01 09:30:00 2019-08-01 09:30:[address] [facility] [id number] [facility] Results Test Description Test Time Test Comments Results Result Co mments Source COAGULATION TIME [id number] 07:40:00* Test Item Value Reference Range Interpretation Comme nts COAGULATION TIME ACTIVATED (test code = ACT) 391 SECONDS Performed by certified spindraw operator at [facility] PROTHROMBIN [id number] 11:28:00* Test Item Value Reference Range Interpretation Comme nts PROTHROMBIN TIME PATIENT (test code = PTP) 16.6 SECONDS 9.3-12.9 H INTERNATIONAL NORMAL RATIO (test code = INR) 1.5 0.8-1.2 H TARGET INR BY INDICATION Indication INR1. Prophylaxis of venous thrombosis 2.0 - 3.0 (orthopedic surgery), Prophylaxis of venous thrombosis (other than high-risk surgery), Treatment of Deep Vein Thrombosis/Pulmonary Embolism, Prevention of systemic embolism - Tissue heart valves, Acute Myocardial Infarction (to prevent systemic embolism), Valvular heart disease, Atrial Fibrillation, Bileaflet mechanical valve in aortic position.2. Mechanical prosthetic valves (high risk), 2.5 - 3.5 Presence of Lupus Anticoagulant or Antiphospholipid Antibodies, Prevention of systemic embolism - Acute Myocardial Infarction (to prevent recurrent infarct). BASIC METABOLIC [id number] 11:24:00* Test Item Value Reference Range Interpretation Comme nts SODIUM (test code = NA) 141 mEq/L 134-147 N POTASSIUM (test code = K) 4.3 mEq/L 3.4-5.0 N CHLORIDE (test code = CL) 103 mEq/L 100-108 N CARBON DIOXIDE (test code = CO2) 28 mEq/l 21-33 N ANION GAP (test code = GAP) 15 0-20 N GLUCOSE (test code = GLU) 93 mg/dL 77-141 N BLOOD UREA NITROGEN (test code = BUN) 14 mg/dL 7-25 N GLOMERULAR FILTRATION RATE (test code = GFR) 78.0 70-80 N The Glomerular Filtration Rate is a calculated parameterbased on serum Creatinine, patient age and sex. GFR valuesless than 60 mL/min/1.73 square meters are indicative ofChronic Kidney Disease. Values less than 15 mL/min/1.73square meters indicate Kidney failure. The calculation forGFR is based on the CKD-EPI (2020) calculation. This formulais race indifferent and is the recommended formula for GFRby the National Kidney Foundation for Adults.The GFR will not calculate if the sex is unknown or if thepatient's age is <18 years. CREATININE (test code = CREAT) 1.0 mg/dL 0.6-1.3 N CALCIUM (test code = CA) 9.4 mg/dL 8.0-10.5 N CBC W/AUTO [id number] 11:16:00* Test Item Value Reference Range Interpretation Comme nts WHITE BLOOD CELL (test code = WBC) 7.1 x10 3/uL 4.5-11.0 N RED BLOOD CELL (test code = RBC) 5.31 x10 6/uL 4.00-5.60 N HEMOGLOBIN (test code = HGB) 14.6 g/dL 12.5-16.9 N HEMATOCRIT (test code = HCT) 45.7 % 37.5-50.7 N MEAN CELL VOLUME (test code = MCV) 86.1 fL 81.0-99.0 N MEAN CELL HGB (test code = MCH) 27.5 pg 27.0-33.0 N MEAN CELL HGB CONCETRATION (test code = MCHC) 31.9 g/dL 33.0-37.0 L RED CELL DISTRIBUTION WIDTH CV (test code = RDW) 14.2 % 11.5-14.5 N RED CELL DISTRIBUTION WIDTH SD (test code = RDW-SD) 44.8 fL 37.0-54.0 N PLATELET COUNT (test code = PLT) 212 x10 3/uL 150-400 N MEAN PLATELET VOLUME (test c ode = MPV) 10.7 fL 7.0-9.0 H NEUTROPHIL % (test code = NT%) 57.5 % 56.0-77.0 N IMMATURE GRANULOCYTE % (test code = IG%) 0.4 % 0.0-2.0 N LYMPHOCYTE % (test code = LY%) 24.2 % 14.0-32.0 N MONOCYTE % (test code = MO%) 9.9 % 4.8-9.0 H EOSINOPHIL % (test code = EO%) 7.3 % 0.3-3.7 H BASOPHIL % (test code = BA%) 0.7 % 0.0-2.0 N NUCLEATED RBC % (test code = NRBC%) 0.0 % 0-0 N NEUTROPHIL # (test code = NT#) 4.10 x10 3/uL 2.0-7.6 N IMMATURE GRANULOCYTE # (test code = IG#) 0.03 x10 3/uL 0.00-0.03 N LYMPHOCYTE # (test code = LY#) 1.73 x10 3/uL 1.0-3.8 N MONOCYTE # (test code = MO#) 0.71 x10 3/uL 0.1-0.8 N EOSINOPHIL # (test code = EO#) 0.52 x10 3/uL 0.0-0.2 H BASOPHIL # (test code = BA#) 0.05 x10 3/uL 0.0-0.2 N NUCLEATED RBC # (test code = NRBC#) 0.00 x10 3/uL 0.0-0.1 N LIPID PANEL WITH REFLEX TO DIRECT [id number] 00:00:00* Test Item Value Reference Range Interpretation Comme nts ABSOLUTE BASOPHILS (test code = 704-7) 42 cells/uL See_Comment N [Automated m essage] The system which generated this result transmitted reference range: 0-200 cells/uL. The reference range was not used to interpret this result as normal/abnormal. ABSOLUTE EOSINOPHILS (test code = 711-2) 528 cells/uL See_Comment H [Automated m essage] The system which generated this result transmitted reference range: 15-500 cells/uL. The reference range was not used to interpret this result as normal/abnormal. ABSOLUTE LYMPHOCYTES (test code = 731-0) 1638 cells/uL See_Comment N [Automated m essage] The system which generated this result transmitted reference range: 850-3900 cells/uL. The reference range was not used to interpret this result as normal/abnormal. ABSOLUTE MONOCYTES (test code = 742-7) 642 cells/uL See_Comment N [Automated m essage] The system which generated this result transmitted reference range: 200-950 cells/uL. The reference range was not used to interpret this result as normal/abnormal. ABSOLUTE NEUTROPHILS (test code = 751-8) 3150 cells/uL See_Comment N [Automated m essage] The system which generated this result transmitted reference range: 1418-5360 cells/uL. The reference range was not used to interpret this result as normal/abnormal. BASOPHILS (test code = 706-2) 0.7 % N EOSINOPHILS (test code = 713-8) 8.8 % N HEMATOCRIT (test code = 4544-3) 44.0 % See_Comment N [Automated messa ge] The system which generated this result transmitted reference range: 38.5-50.0 %. The reference range was not used to interpret this result as normal/abnormal. HEMOGLOBIN (test code = 718-7) 13.9 g/dL See_Comment N [Automated messa ge] The system which generated this result transmitted reference range: 13.2-17.1 g/dL. The reference range was not used to interpret this result as normal/abnormal. LYMPHOCYTES (test code = 736-9) 27.3 % N MCH (test code = 785-6) 27.5 pg See_Comment N [Automated messa ge] The system which generated this result transmitted reference range: 27.0-33.0 pg. The reference range was not used to interpret this result as normal/abnormal. MCHC (test code = 786-4) 31.6 g/dL See_Comment L [Automated messa ge] The system which generated this result transmitted reference range: 32.0-36.0 g/dL. The reference range was not used to interpret this result as normal/abnormal. MCV (test code = 787-2) 87.1 fL See_Comment N [Automated messa ge] The system which generated this result transmitted reference range: 80.0-100.0 fL. The reference range was not used to interpret this result as normal/abnormal. MONOCYTES (test code = 5905-5) 10.7 % N MPV (test code = 776-5) 10.8 fL See_Comment N [Automated messa ge] The system which generated this result transmitted reference range: 7.5-12.5 fL. The reference range was not used to interpret this result as normal/abnormal. NEUTROPHILS (test code = 770-8) 52.5 % N PLATELET COUNT (test code = 777-3) 181 Thousand/uL See_Comment N [Automated message] The system which generated this result transmitted reference range: 140-400 Thousand/uL. The reference range was not used to interpret this result as normal/abnormal. RDW (test code = 788-0) 13.2 % See_Comment N [Automated messa ge] The system which generated this result transmitted reference range: 11.0-15.0 %. The reference range was not used to interpret this result as normal/abnormal. RED BLOOD CELL COUNT (test code = 789-8) 5.05 Million/uL See_Comment N [Automated message] The system which generated this result transmitted reference range: 4.20-5.80 Million/uL. The reference range was not used to interpret this result as normal/abnormal. WHITE BLOOD CELL COUNT (test code = 6690-2) 6.0 Thousand/uL See_Comment N [Automated message] The system which generated this result transmitted reference range: 3.8-10.8 Thousand/uL. The reference range was not used to interpret this result as normal/abnormal. HEMOGLOBIN A1c (test code = 4548-4) 6.2 % See_Comment H [Automated [employer]] The system which generated this result transmitted reference range: <5.7 %. The reference range was not used to interpret this result as normal/abnormal. MEAN PLASMA GLUCOSE (test code = 29007-5) 143 mg/dL (calc) ALBUMIN (test code = 1751-7) 3.7 g/dL See_Comment N [Automated [employer] ge] The system which generated this result transmitted reference range: 3.6-5.1 g/dL. The reference range was not used to interpret this result as normal/abnormal. ALBUMIN/GLOBULIN RATIO (test code = 1759-0) 1.5 (calc) See_Comment N [Automated message] The system which generated this result transmitted reference range: 1.0-2.5 (calc). The reference range was not used to interpret this result as normal/abnormal. ALKALINE PHOSPHATASE (test code = 6768-6) 56 U/L See_Comment N [Automated message] The system which generated this result transmitted reference range: 35-144 U/L. The reference range was not used to interpret this result as normal/abnormal. ALT (test code = 1742-6) 17 U/L See_Comment N [Automated [employer] ge] The system which generated this result transmitted reference range: 9-46 U/L. The reference range was not used to interpret this result as normal/abnormal. AST (test code = 1920-8) 18 U/L See_Comment N [Automated messa ge] The system which generated this result transmitted reference range: 10-35 U/L. The reference range was not used to interpret this result as normal/abnormal. BILIRUBIN, TOTAL (test code = 1975-2) 0.4 mg/dL See_Comment N [Automated messa ge] The system which generated this result transmitted reference range: 0.2-1.2 mg/dL. The reference range was not used to interpret this result as normal/abnormal. BUN/CREATININE RATIO (test code = 3097-3) SEE NOTE: (calc) See_Comment [Automated message] The system which generated this result transmitted reference range: 6-22 (calc). The reference range was not used to interpret this result as normal/abnormal. CALCIUM (test code = 35122-4) 8.9 mg/dL See_Comment N [Automated messa ge] The system which generated this result transmitted reference range: 8.6-10.3 mg/dL. The reference range was not used to interpret this result as normal/abnormal. CARBON DIOXIDE (test code = 8-9) 28 mmol/L See_Comment N [Automated messa ge] The system which generated this result transmitted reference range: 20-32 mmol/L. The reference range was not used to interpret this result as normal/abnormal. CHLORIDE (test code = 2075-0) 104 mmol/L See_Comment N [Automated messa ge] The system which generated this result transmitted reference range: 98-110 mmol/L. The reference range was not used to interpret this result as normal/abnormal. CREATININE (test code = 2160-0) 0.98 mg/dL See_Comment N [Automated messa ge] The system which generated this result transmitted reference range: 0.70-1.28 mg/dL. The reference range was not used to interpret this result as normal/abnormal. GLOBULIN (test code = 86526-9) 2.4 g/dL (calc) See_Comment N [Automated message] The system which generated this result transmitted reference range: 1.9-3.7 g/dL (calc). The reference range was not used to interpret this result as normal/abnormal. GLUCOSE (test code = 2345-7) 99 mg/dL See_Comment N [Automated messa ge] The system which generated this result transmitted reference range: 65-99 mg/dL. The reference range was not used to interpret this result as normal/abnormal. POTASSIUM (test code = 2823-3) 4.2 mmol/L See_Comment N [Automated messa ge] The system which generated this result transmitted reference range: 3.5-5.3 mmol/L. The reference range was not used to interpret this result as normal/abnormal. PROTEIN, TOTAL (test code = 2885-2) 6.1 g/dL See_Comment N [Automated [employer] ge] The system which generated this result transmitted reference range: 6.1-8.1 g/dL. The reference range was not used to interpret this result as normal/abnormal. SODIUM (test code = 2951-2) 139 mmol/L See_Comment N [Automated [employer] ge] The system which generated this result transmitted reference range: 135-146 mmol/L. The reference range was not used to interpret this result as normal/abnormal. UREA NITROGEN (BUN) (test code = 3094-0) 21 mg/dL See_Comment N [Automated message] The system which generated this result transmitted reference range: 7-25 mg/dL. The reference range was not used to interpret this result as normal/abnormal. CHOL/HDLC RATIO (test code = 9830-1) 3.8 (calc) See_Comment N [Automated [employer] ge] The system which generated this result transmitted reference range: <5.0 (calc). The reference range was not used to interpret this result as normal/abnormal. CHOLESTEROL, TOTAL (test code = 2093-3) 194 mg/dL See_Comment N [Automated message] The system which generated this result transmitted reference range: <200 mg/dL. The reference range was not used to interpret this result as normal/abnormal. HDL CHOLESTEROL (test code = 2085-9) 51 mg/dL See_Comment N [Automated [employer] ge] The system which generated this result transmitted reference range: > OR = 40 mg/dL. The reference range was not used to interpret this result as normal/abnormal. LDL-CHOLESTEROL (test code = 98933-0) 115 mg/dL (calc) H TRIGLYCERIDES (test code = 2571-8) 162 mg/dL See_Comment H [Automated [employer] ge] The system which generated this result transmitted reference range: <150 mg/dL. The reference range was not used to interpret this result as normal/abnormal. COMPREHENSIVE METABOLIC [id number] 00:00:00* Test Item Value Reference Range Interpretation Comme nts NUCLEATED RBCS (test code = 04620-0) 0.0 /100 WBC'S See_Comment [Automated message] The system which generated this result transmitted reference range: 0.0 /100 WBC'S. The reference range was not used to interpret this result as normal/abnormal. ABSOLUTE EOSINOPHILS (test code = 97457-5) 0.35 K/UL See_Comment [Automated message] The system which generated this result transmitted reference range: 0.00-0.50 K/UL. The reference range was not used to interpret this result as normal/abnormal. ABSOLUTE LYMPHOCYTES (test code = 96035-1) 1.60 K/UL See_Comment [Automated message] The system which generated this result transmitted reference range: 1.00-4.00 K/UL. The reference range was not used to interpret this result as normal/abnormal. ABSOLUTE MONOCYTES (test code = 11283-4) 0.68 K/UL See_Comment [Automated message] The system which generated this result transmitted reference range: 0.20-1.00 K/UL. The reference range was not used to interpret this result as normal/abnormal. ABSOLUTE NEUTROPHILS (test code = 63149-6) 4.39 K/UL See_Comment [Automated message] The system which generated this result transmitted reference range: 1.50-7.50 K/UL. The reference range was not used to interpret this result as normal/abnormal. BASOPHILS (test code = 25846-6) 0.4 % EOSINOPHILS (test code = 06881-9) 4.9 % HEMATOCRIT (test code = 66663-3) 46.8 % See_Comment [Automated messa ge] The system which generated this result transmitted reference range: 40.0-51.0 %. The reference range was not used to interpret this result as normal/abnormal. HEMOGLOBIN (test code = 718-7) 15.0 G/DL See_Comment [Automated messa ge] The system which generated this result transmitted reference range: 13.5-17.0 G/DL. The reference range was not used to interpret this result as normal/abnormal. LYMPHOCYTES (test code = 02791-8) 22.6 % MCH (test code = 72896-1) 27.6 PG See_Comment [Automated messa ge] The system which generated this result transmitted reference range: 25.0-33.0 PG. The reference range was not used to interpret this result as normal/abnormal. MCHC (test code = 35978-7) 32.1 G/DL See_Comment [Automated messa ge] The system which generated this result transmitted reference range: 31.0-36.0 G/DL. The reference range was not used to interpret this result as normal/abnormal. MCV (test code = 77185-5) 86.2 fL See_Comment [Automated messa ge] The system which generated this result transmitted reference range: 80.0-99.0 fL. The reference range was not used to interpret this result as normal/abnormal. MONOCYTES (test code = 48405-1) 9.6 % NEUTROPHILS (test code = 81987-8) 62.1 % PLATELET COUNT (test code = 05318-6) 191 K/UL See_Comment [Automated messa ge] The system which generated this result transmitted reference range: 130-400 K/UL. The reference range was not used to interpret this result as normal/abnormal. RBC (test code = 92107-8) 5.43 M/UL See_Comment [Automated messa ge] The system which generated this result transmitted reference range: 4.50-6.10 M/UL. The reference range was not used to interpret this result as normal/abnormal. RDW (test code = 77639-3) 13.0 % See_Comment [Automated messa ge] The system which generated this result transmitted reference range: 11.5-15.0 %. The reference range was not used to interpret this result as normal/abnormal. WBC (test code = 13311-1) 7.1 K/UL See_Comment [Automated messa ge] The system which generated this result transmitted reference range: 3.5-11.0 K/UL. The reference range was not used to interpret this result as normal/abnormal. HEMOGLOBIN A1c (test code = 4548-4) 6.2 % See_Comment H [Automated messa ge] The system which generated this result transmitted reference range: 4.2-5.6 %. The reference range was not used to interpret this result as normal/abnormal. CALC LDL CHOL (test code = 73377-8) 129 MG/DL See_Comment H [Automated messa ge] The system which generated this result transmitted reference range: <100 MG/DL. The reference range was not used to interpret this result as normal/abnormal. CHOLESTEROL (test code = 2093-3) 205 MG/DL See_Comment H [Automated messa ge] The system which generated this result transmitted reference range: <200 MG/DL. The reference range was not used to interpret this result as normal/abnormal. HDL CHOLESTEROL (test code = 2085-9) 48 MG/DL See_Comment [Automated messa ge] The system which generated this result transmitted reference range: >39 MG/DL. The reference range was not used to interpret this result as normal/abnormal. RISK RATIO LDL/HDL (test code = 53213-9) 2.69 RATIO See_Comment [Automated message] The system which generated this result transmitted reference range: <3.55 RATIO. The reference range was not used to interpret this result as normal/abnormal. TRIGLYCERIDES (test code = 2571-8) 162 MG/DL See_Comment H [Automated messa ge] The system which generated this result transmitted reference range: <150 MG/DL. The reference range was not used to interpret this result as normal/abnormal. ALBUMIN (test code = 1751-7) 4.1 G/DL See_Comment [Automated messa ge] The system which generated this result transmitted reference range: 3.5-5.2 G/DL. The reference range was not used to interpret this result as normal/abnormal. ALKALINE PHOSPHATASE (test code = 6768-6) 61 U/L See_Comment [Automated message] The system which generated this result transmitted reference range: 40-125 U/L. The reference range was not used to interpret this result as normal/abnormal. BILIRUBIN, TOTAL (test code = 1975-2) 0.4 MG/DL See_Comment [Automated messa ge] The system which generated this result transmitted reference range: <=1.2 MG/DL. The reference range was not used to interpret this result as normal/abnormal. BUN (test code = 3094-0) 18 MG/DL See_Comment [Automated messa ge] The system which generated this result transmitted reference range: 8-23 MG/DL. The reference range was not used to interpret this result as normal/abnormal. CALCIUM (test code = 75974-5) 9.5 MG/DL See_Comment [Automated messa ge] The system which generated this result transmitted reference range: 8.5-10.5 MG/DL. The reference range was not used to interpret this result as normal/abnormal. CALC A/G RATIO (test code = 1759-0) 1.4 RATIO See_Comment [Automated messa ge] The system which generated this result transmitted reference range: 1.0-2.6 RATIO. The reference range was not used to interpret this result as normal/abnormal. CALC BUN/CREAT (test code = 3097-3) 19 RATIO See_Comment [Automated messa ge] The system which generated this result transmitted reference range: 6-28 RATIO. The reference range was not used to interpret this result as normal/abnormal. CALC GLOBULIN (test code = 51298-3) 3.0 G/DL See_Comment [Automated messa ge] The system which generated this result transmitted reference range: 1.9-3.7 G/DL. The reference range was not used to interpret this result as normal/abnormal. CARBON DIOXIDE (test code = 1963-8) 27 MEQ/L See_Comment [Automated messa ge] The system which generated this result transmitted reference range: 19-31 MEQ/L. The reference range was not used to interpret this result as normal/abnormal. CHLORIDE (test code = 2075-0) 104 MEQ/L See_Comment [Automated messa ge] The system which generated this result transmitted reference range: 95-107 MEQ/L. The reference range was not used to interpret this result as normal/abnormal. CREATININE (test code = 2160-0) 0.94 MG/DL See_Comment [Automated messa ge] The system which generated this result transmitted reference range: 0.80-1.40 MG/DL. The reference range was not used to interpret this result as normal/abnormal. eGFR (2020 CKD-EPI) (test code = 84366-3) 84 ML/MIN/1.73 See_Comment [Automated message] The system which generated this result transmitted reference range: >60 ML/MIN/1.73. The reference range was not used to interpret this result as normal/abnormal. GLUCOSE (test code = 1558-6) 113 MG/DL See_Comment H [Automated messa ge] The system which generated this result transmitted reference range: 70-99 MG/DL. The reference range was not used to interpret this result as normal/abnormal. POTASSIUM (test code = 2823-3) 4.7 MEQ/L See_Comment [Automated messa ge] The system which generated this result transmitted reference range: 3.5-5.4 MEQ/L. The reference range was not used to interpret this result as normal/abnormal. PROTEIN, TOTAL (test code = 2885-2) 7.1 G/DL See_Comment [Automated messa ge] The system which generated this result transmitted reference range: 6.1-8.3 G/DL. The reference range was not used to interpret this result as normal/abnormal. AST (test code = 1920-8) 18 U/L See_Comment [Automated messa ge] The system which generated this result transmitted reference range: 9-50 U/L. The reference range was not used to interpret this result as normal/abnormal. ALT (test code = 1742-6) 17 U/L See_Comment [Automated messa ge] The system which generated this result transmitted reference range: 5-50 U/L. The reference range was not used to interpret this result as normal/abnormal. SODIUM (test code = 2951-2) 144 MEQ/L See_Comment [Automated messa ge] The system which generated this result transmitted reference range: 133-146 MEQ/L. The reference range was not used to interpret this result as normal/abnormal. HEMOGLOBIN [id number] 00:00:00* Test Item Value Reference Range Interpretation Comme nts HEMOGLOBIN A1c (test code = 4548-4) 6.4 % See_Comment H [Automated messa ge] The system which generated this result transmitted reference range: 4.2-5.6 %. The reference range was not used to interpret this result as normal/abnormal. [id number] 00:00:00resultHEMOGLOBIN [id number] 00:00:00* Test Item Value Reference Range Interpretation Comme nts HEMOGLOBIN A1c (test code = 4548-4) 6.0 % See_Comment H [Automated messa ge] The system which generated this result transmitted reference range: 4.2-5.6 %. The reference range was not used to interpret this result as normal/abnormal. CBC W/AUTO [id number] 00:00:00* Test Item Value Reference Range Interpretation Comme nts NUCLEATED RBCS (test code = 81050-6) 0.0 /100 WBC'S See_Comment [Automated messa ge] The system which generated this result transmitted reference range: 0.0 /100 WBC'S. The reference range was not used to interpret this result as normal/abnormal. ABSOLUTE EOSINOPHILS (test code = 38349-8) 0.38 K/UL See_Comment [Automated messa ge] The system which generated this result transmitted reference range: 0.00-0.50 K/UL. The reference range was not used to interpret this result as normal/abnormal. ABSOLUTE LYMPHOCYTES (test code = 98511-4) 1.93 K/UL See_Comment [Automated messa ge] The system which generated this result transmitted reference range: 1.00-4.00 K/UL. The reference range was not used to interpret this result as normal/abnormal. ABSOLUTE MONOCYTES (test code = 73105-5) 0.63 K/UL See_Comment [Automated messa ge] The system which generated this result transmitted reference range: 0.20-1.00 K/UL. The reference range was not used to interpret this result as normal/abnormal. ABSOLUTE NEUTROPHILS (test code = 97695-5) 3.11 K/UL See_Comment [Automated messa ge] The system which generated this result transmitted reference range: 1.50-7.50 K/UL. The reference range was not used to interpret this result as normal/abnormal. BASOPHILS (test code = 12044-9) 1.0 % EOSINOPHILS (test code = 10560-3) 6.2 % HEMATOCRIT (test code = 27603-0) 46.0 % See_Comment [Automated messa ge] The [...] result as normal/abnormal. LYMPHOCYTES (test code = 95533-9) 31.4 % MCH (test code = 70883-6) 27.9 PG See_Comment [Automated messa ge] The system which generated this result transmitted reference range: 25.0-33.0 PG. The reference range was not used to interpret this result as normal/abnormal. MCHC (test code = 44787-8) 32.8 G/DL See_Comment [Automated messa ge] The system which generated this result transmitted reference range: 31.0-36.0 G/DL. The reference range was not used to interpret this result as normal/abnormal. MCV (test code = 41468-0) 84.9 fL See_Comment [Automated messa ge] The system which generated this result transmitted reference range: 80.0-99.0 fL. The reference range was not used to interpret this result as normal/abnormal. MONOCYTES (test code = 72528-2) 10.3 % NEUTROPHILS (test code = 50106-1) 50.6 % PLATELET COUNT (test code = 00699-7) 188 K/UL See_Comment [Automated messa ge] The system which generated this result transmitted reference range: 130-400 K/UL. The reference range was not used to interpret this result as normal/abnormal. RBC (test code = 55820-9) 5.42 M/UL See_Comment [Automated messa ge] The system which generated this result transmitted reference range: 4.50-6.10 M/UL. The reference range was not used to interpret this result as normal/abnormal. RDW (test code = 97299-9) 13.7 % See_Comment [Automated messa ge] The system which generated this result transmitted reference range: 11.5-15.0 %. The reference range was not used to interpret this result as normal/abnormal. WBC (test code = 33506-7) 6.1 K/UL See_Comment [Automated messa ge] The system which generated this result transmitted reference range: 3.5-11.0 K/UL. The reference range was not used to interpret this result as normal/abnormal. Notes Date/Time Note Provider Source 2025-05-16 08:18:00 [facility] ([facility]) DT Operative Note REPORT#:[id number] REPORT STATUS: Signed REPORT INITIALIZATION DATE:05/16/25 TIME: 817 PATIENT: MARTIN RO UNIT #: [id number] ROOM/BED: : 48 AGE: 74 SEX: M ATTEND: Zachary Chaney MD ADM AUTHOR: Zachary Chaney MD REPT SERVICE DT/TIME: 05/16/25 0818 * ALL edits or amendments must be made on the electronic/computer document * Operative Report Operative Note Note: OPERATION DATE: 05/16/2025 PREOPERATIVE DIAGNOSES: 1. Paroxysmal atrial fibrillation, refractory to medical therapy. 2. Shortness of breath. 3. Palpitations POSTOPERATIVE DIAGNOSES: 1. Paroxysmal atrial fibrillation, refractory to medical therapy. 2. Shortness of breath. 3. Palpitations PROCEDURES PERFORMED: 1. Comprehensive electrophysiology study with induction. 2. Ablation of atrial fibrillation. 3. Additional linear ablation in the left atrium for a fib 4. Catheter mapping SURGEON: Zachary Mcdonnell MD PRODUCTION SUPERINTENDENT: ESTIMATED BLOOD LOSS: 20 mL. COMPLICATIONS: None. ANESTHESIA: General. DESCRIPTION OF PROCEDURE: After informed consent was obtained, the patient was brought to the electrophysiology laboratory in a fasting sedated state. The area over his groin was prepped and draped in the usual sterile fashion. General anesthesia was started. Vascular access was obtained x 2 in the right common femoral vein under ultrasound. Heparin was given to maintain ACT greater than 350. There was no pericardial effusion at baseline, no thrombus in the left atrium. We then performed transeptal access x1. A 3D map of the left atrium was created using [employer] System. The patient was in sinus rhythm We then performed pulse field ablation lesions using the basket configuration x2 , then rotated about 30 degrees, delivered two more lesions, then the flower configuration x2, rotated about 30 degrees and delivered two more lesions on each vein until all four veins were isolated. A detailed map of the posterior wall demonstrated significant fractionated areas , we went ahead and performed PFA uisng the flower configuration, two lesions per site and overlapping about 50% in between lesions until successful isolation The patient tolerated the procedure well. Procedure was complete. There was no pericardial effusion. We gave protamine. We removed the sheaths. We used Vascade. Total lesions delivered 66 IMPRESSION: 1. Sinus rhythm on presentation. 2. Successful isolation of the four pulmonary veins and the posterior wall using PFA 3. No complications PLAN: 1. Routine postop monitoring on telemetry. 2. Continue oral anticoagulation and current medicines. 3. Will follow in 1-2 weeks at 0821 RPT #:[id number] END OF REPORT [facility] 2025-05-12 10:17:00 [id number] [address] PATIENT NAME: MARTIN RO ADMIT DATE: ACCOUNT NO: [id number] ROOM NO: AGE: 74 REPORT TYPE: eELECTROCARDIOGRAM REPORT SEX: M ADMITTING PHYSICIAN: ATTENDING PHYSICIAN:Zachary Chaney MD Order: [id number] Test Reason : PREOP Test Date/Time Stamp: ThuMay 12 2025 10:17:44 Blood Pressure : */* mmHG Vent. Rate : 75 BPM Atrial Rate : 75 BPM P-R Int : 216 ms QRS Dur : 144 ms QT Int : 438 ms P-R-T Axes : 32 39 227 degrees QTcB Int : 489 ms Sinus rhythm with sinus arrhythmia with 1st degree AV block Left bundle branch block Abnormal ECG When compared with ECG of 22-Sep-2017 11:49, Significant changes have occurred Confirmed by Vicki Medrano ([id number]) on 05/12/2025 12:46:03 PM Referred By: Zachary Mcdonnell Confirmed by: Vicki Medrano at 1246 PATIENT NAME: MARTIN RO [facility]
[2025-05-20 12:38] LABS: Absolute Lymphocytes (CBC) 0.9 K/uL (0.7-4.9); Hematocrit 37.8 % (39.6-49.0); Hemoglobin 12.7 g/dL (13.6-17.9); MCH 27.9 pg (27.0-35.0); MCHC 33.6 g/dL (32.0-36.0); MCV 83.0 fL (80-100); MPV 8.2 fL (7.6-11.3); Nucleated RBC Absolute Count 0.0 (0-0); Nucleated Red Blood Cells % 0.0 % (0-0); RBC Red Blood Cell Count 4.56 M/uL (4.33-5.43); White Blood Count 9.70 thou/uL (4.3-10.9)
[2025-05-20 13:01] LABS: ALT/SGPT 37.0 U/L (16-61); AST/SGOT 34.0 U/L (15-37); Albumin 3.0 g/dL (3.4-5.0); Albumin/Globulin Ratio 0.8 (1.1-1.8); Alkaline Phosphatase 59.0 U/L (45-117); Anion Gap 9.8 mEq/L (5.0-15.0); BUN Blood Urea Nitrogen 10.0 mg/dL (7-18); Bilirubin Indirect, Calculated 0.4 mg/dL (0.2-0.8); Globulin 3.7 g/dL (2.3-3.5); Glucose Level 114.0 mg/dL (74-106); NT PRO-BNP 2218.0 pg/mL (<450); PT Prothrombin Time 19.6 SECONDS (10-13.0); Potassium 3.8 mEq/L (3.5-5.1); Protime INR 1.76
[2025-05-20 13:16] LABS: Troponin High Sensitivity 629.3 pg/mL (<58.9)
--- NOTE | 2025-05-20 14:02 | RAD REPORT ---
Procedure: Chest Single View HISTORY: Chest pain COMPARISON: December 2024 FINDINGS: The lungs appear clear of acute infiltrate. No significant pleural effusion noted. The heart is mildly enlarged. IMPRESSION: No acute abnormality is displayed.
--- NOTE | 2025-05-20 14:02 | RAD REPORT ---
EXAMINATION: CTA CHEST PE CLINICAL INDICATION: Chest pain TECHNIQUE: 100 cc 370 Isovue administered intravenously. This examination was performed according to an angiographic protocol with 3D post-processing. This involves 3D reconstructions, MIPs, volume rendered images and/or shaded surface rendering. One or more of the following dose reduction techniqu es were used: Automated exposure control, adjustment of the mA and/or kV according to patient size, and/or iterative reconstruction. Unless otherwise specified, incidental findings do not require dedic ated imaging follow-up. [id number]. COMPARISON: No prior exam. FINDINGS: Opacification of the pulmonary arteries is suboptimal. No gross pulmonary embolus seen. An aortic aneurysm not noted. No pleural effusion. No pericardial effusion. Lungs are clear. 5.7 cm left renal cyst IMPRESSION: No gross pulmonary embolus seen
--- NOTE | 2025-05-20 15:27 | EDPHYS ---
Physician Documentation [facility] Name: Yasmani Ro Age: 74 yrs Sex: Male : 1950 Arrival Date: 05/20/2025 Time: 11:45 Bed 20 Private MD: ED Physician Jack Frazier HPI: 05/20 12:54 This 74 yrs old Male presents to ER via Ambulatory with complaints of Chest Pain. rn 12:54 Patient reports diffuse chest pain, sharp stabbing when taking a deep breath, started rn last night. No shortness of breath. Patient states just had ablation for atrial fibrillation earlier this week at outside hospital. Was doing okay when he was discharged and pain started last night. Pain is mild. No fever or chills. No hemoptysis. No history of DVT or PE. No abdominal pain.. Historical: - Allergies: 11:55 Codeine; af3 11:55 Hydrocodone-Acetaminophen; af3 11:55 Morphine; af3 - PMHx: 11:55 prostate problems; af3 - PSHx: 11:55 knee replacements; af3 - Immunization history:: Adult Immunizations up to date. - Infectious Disease History:: Denies. - Social history:: Smoking status: Patient denies any tobacco usage or history of. - Family history:: not pertinent. - Hospitalizations: : Patient was recently seen at. ROS: 12:54 Constitutional: Negative for fever, chills, and weight loss, Cardiovascular: Positive rn for chest pain Respiratory: Negative for shortness of breath, cough, wheezing, and pleuritic chest pain, Abdomen/GI: Negative for abdominal pain, nausea, vomiting, diarrhea, and constipation, Back: Negative for injury and pain, MS/Extremity: Negative for injury and deformity, Skin: Negative for injury, rash, and discoloration, Neuro: Negative for headache, weakness, numbness, tingling, and seizure, Exam: 12:54 Constitutional: This is a well developed, well nourished patient who is awake, alert, rn and in no acute distress. Cardiovascular: Regular rate and rhythm . No pulse deficits. Respiratory: Speaking full sentences, unlabored. No increased work of breathing, no retractions or nasal flaring. Abdomen/GI: Soft, non-tender 13:14 ECG was reviewed by the Attending Physician. rn Vital Signs: 11:52 Pulse 79; Resp 18; Temp 97.7; Pulse Ox 97% on R/A; af3 12:43 BP 130 / 60; Pulse 77; Resp 18; Pulse Ox 96% ; ar8 13:46 BP 133 / 56; Pulse 70; Resp 20; Pulse Ox 96% on R/A; ar8 14:35 BP 140 / 55; Pulse 70; Resp 21; Pulse Ox 96% on R/A; ar8 15:30 BP 149 / 66; Pulse 73; Resp 19; Pulse Ox 98% on R/A; ar8 16:30 BP 138 / 63; Pulse 73; Resp 20; Pulse Ox 97% on R/A; ar8 MDM: 11:47 Medical Screening Exam initiated rn 15:21 Differential diagnosis: acute pericarditis, pleurisy, pneumonia, pneumothorax, rn pulmonary embolus. HEART Score: History: Slightly Suspicious (0), ECG: Non specific repolarization disturbance / LBTB / PM (1), Age: > or = 65 years (2), Risk Factors: 1 or 2 risk factors (1), Troponin: > or = 3 x Normal Limit (2), Total Score = 6. Data reviewed: vital signs, nurses notes, lab test result(s), EKG, radiologic studies, plain films, and as a result, I will admit patient. Consideration of Admission/Observation Patient was admitted/placed on observation. Escalation of care including admission/observation considered. Management of patient was discussed with the following: Academic Support Specialist: Discussed case and results with Dr. Huggins, request observation with echo to rule out effusion.. Independent interpretation of the following test(s) in the Emergency Department EKG: See my EKG interpretation above X-Ray: My interpretation is Chest x-ray images negative for pulmonary edema or pneumothorax per my interpretation. campus monitor: rate is 70 beats/min, Rhythm is normal sinus rhythm, regular, with no ectopy, Interpretation: normal rate, normal rhythm. Care significantly affected by the following chronic conditions: Atrial fibrillation. Counseling: I had a detailed discussion with the patient and/or guardian regarding the historical points, exam findings, and any diagnostic results supporting the discharge/admit diagnosis, lab results, radiology results, the need for further work-up and treatment in the hospital. Response to treatment: the patient's symptoms have mildly improved after treatment, and as a result, I will admit patient. 05/20 12:01 Order name: Basic Metabolic Panel; Complete Time: 13:16 rn 05/20 12:01 Order name: CBC with Diff; Complete Time: 13:16 rn 05/20 12:01 Order name: LFT's; Complete Time: 13:16 rn 05/20 12:01 Order name: NT PRO-BNP; Complete Time: 13:16 rn 05/20 12:01 Order name: PT-INR; Complete Time: 13:16 rn 05/20 12:01 Order name: Troponin HS; Complete Time: 13:16 rn 05/20 14:01 Order name: Troponin HS; Complete Time: 14:46 ar8 05/20 16:27 Order name: Basic Metabolic Panel EDMS 05/20 16:27 Order name: Basic Metabolic Panel EDMS 05/20 16:27 Order name: CBC with Automated Diff EDMS 05/20 16:27 Order name: CBC with Automated Diff EDMS 05/20 16:27 Order name: Magnesium EDMS 05/20 16:27 Order name: Magnesium EDMS 05/20 16:27 Order name: Phosphorus EDMS 05/20 16:27 Order name: Phosphorus EDMS 05/20 16:27 Order name: Troponin High Sensitivity EDMS 05/20 16:27 Order name: Troponin High Sensitivity EDMS 05/20 16:27 Order name: Troponin High Sensitivity EDMS 05/20 12:01 Order name: XRAY Chest (1 view); Complete Time: 14:09 rn 05/20 12:01 Order name: CT Chest For PE Angio; Complete Time: 14:09 rn 05/20 16:24 Order name: CONS Physician Consult EDHI 05/20 16:27 Order name: EKG Electrocardiogram EDHI 05/20 16:27 Order name: EKG Electrocardiogram EDMS 05/20 16:27 Order name: EKG Electrocardiogram EDHI 05/20 12:01 Order name: Cardiac monitoring; Complete Time: 12:34 rn 05/20 12:01 Order name: EKG - Nurse/Tech; Complete Time: 12:35 rn 05/20 12:01 Order name: IV Saline Lock; Complete Time: 12:35 rn 05/20 12:01 Order name: Labs collected and sent; Complete Time: 12:35 rn 05/20 12:01 Order name: O2 Per Protocol; Complete Time: 12:35 rn 05/20 12:01 Order name: O2 Sat Monitoring; Complete Time: 12:35 rn EC:14 Rate is 76 beats/min. Rhythm is regular. QRS [place] is Normal. NE interval is prolonged. rn QRS interval is prolonged at 156 msec. No Q waves. T waves are Normal. No ST changes noted. Clinical impression: NSR w/ Non-specific ST/T Changes and 1st degree heart block. Interpreted by me. Reviewed by me. Administered Medications: No medications were administered Disposition Summary: 05/20/25 15:26 Hospitalization Ordered Notes: Hospitalization Status: Observation rn Provider: Daniel Frazier rn Location: Telemetry/MedSurg (observation) rn Condition: Stable rn Problem: new rn Symptoms: have improved rn Bed/Room Type: Standard rn Room Assignment: 214(05/20/25 16:30) eb Diagnosis - Chest pain, unspecified rn - Acute pericarditis, unspecified rn Forms: - Medication Reconciliation Form rn - SBAR form rn - Leadership Thank You Letter rn Signatures: Dispatcher [employer] EDHI Jack Frazier MD MD rn Botello, Elizabeth eb Fry, Ashley, RN RN af3 Corrections: (The following items were deleted from the chart) 12:01 12:01 BASIC METABOLIC PANEL+C.LAB.BRZ ordered. EDHI EDHI 12: 12:01 CBC+H.LAB.BRZ ordered. EDHI EDHI 12:01 12:01 HEPATIC FUNCTION+C.LAB.BRZ ordered. EDHI EDHI 12: 12:01 PROBNP+C.LAB.BRZ ordered. EDHI EDHI 12: 12:01 PROTIME (+INR)+COAG.LAB.BRZ ordered. EDHI EDHI 12:01 12:01 Troponin High Sensitivity+C.LAB.BRZ ordered. EDHI EDHI 12:02 12:02 Chest Single View+RAD.RAD.BRZ ordered. EDHI EDHI 12:02 12:02 Chest For PE Angio+CT.RAD.BRZ ordered. EDHI EDHI 16:30 15:26 rn eb
--- NOTE | 2025-05-20 15:27 | ER ---
Nurse's Notes [facility] Name: Yasmani Ro Age: 74 yrs Sex: Male : 1950 Arrival Date: 05/20/2025 Time: 11:45 Bed 20 Private MD: Diagnosis: Chest pain, unspecified;Acute pericarditis, unspecified Presentation: 05/20 11:52 Chief complaint: Patient states: chest pain started last night, hurts with deep af3 breathing. Coronavirus screen: At this time, the client does not indicate any symptoms associated with coronavirus-19. Ebola Screen: No symptoms or risks identified at this time. Initial Sepsis Screen: Does the patient meet any 2 criteria? No. Patient's initial sepsis screen is negative. Does the patient have a suspected source of infection? No. Patient's initial sepsis screen is negative. Risk Assessment: Do you want to hurt yourself or someone else? Patient reports no desire to harm self or others. Onset of symptoms was May 19, 2025. 11:52 Method Of Arrival: Ambulatory af3 11:52 Acuity: AMARI 3 af3 Triage Assessment: 11:55 General: Appears in no apparent distress. comfortable, well groomed, well developed, af3 Behavior is calm, cooperative, appropriate for age. Pain: Complains of pain in chest. Neuro: Level of Consciousness is awake, alert, obeys commands, Oriented to person, place, time, situation, Appropriate for age. Cardiovascular: Reports chest pain, pain with deep breathing. Respiratory: Airway is patent Respiratory effort is even, unlabored, Respiratory pattern is regular, symmetrical. Historical: - Allergies: 11:55 Codeine; af3 11:55 Hydrocodone-Acetaminophen; af3 11:55 Morphine; af3 - PMHx: 11:55 prostate problems; af3 - PSHx: 11:55 knee replacements; af3 - Immunization history:: Adult Immunizations up to date. - Infectious Disease History:: Denies. - Social history:: Smoking status: Patient denies any tobacco usage or history of. - Family history:: not pertinent. - Hospitalizations: : Patient was recently seen at. Screenin:15 [facility] ED Fall Risk Assessment (Adult) History of falling in the last 3 months, ar8 including since admission No falls in past 3 months (0 pts) Confusion or Disorientation No (0 pts) Intoxicated or Sedated No (0 pts) Impaired Gait No (0 pts) Mobility Assist Device Used No (0 pt) Altered Elimination No (0 pt) Score/Fall Risk Level 0 - 2 = Low Risk Oriented to surroundings, Maintained a safe environment. Abuse screen: Denies threats or abuse. Nutritional screening: No deficits noted. Tuberculosis screening: No symptoms or risk factors identified. Assessment: 12:15 General: Appears in no apparent distress. Pain: Complains of pain in chest Pain does ar8 not radiate. Pain currently is 8 out of 10 on a pain scale. Pain began 1 day ago. Aggravated by movement and inspiration. Neuro: Level of Consciousness is awake, alert, obeys commands, Oriented to person, place, time, situation. Cardiovascular: Reports chest pain, Patient's skin is warm and dry. Pulses are all present. Respiratory: Airway is patent Respiratory effort is even, unlabored, Respiratory pattern is regular, symmetrical. GI: No signs and/or symptoms were reported involving the gastrointestinal system. : No signs and/or symptoms were reported regarding the genitourinary system. 14:30 Reassessment: Patient and/or family updated on plan of care and expected duration. Pain ar8 level reassessed. Patient is alert, oriented x 3, equal unlabored respirations, skin warm/dry/pink. . Vital Signs: 11:52 Pulse 79; Resp 18; Temp 97.7; Pulse Ox 97% on R/A; af3 12:43 BP 130 / 60; Pulse 77; Resp 18; Pulse Ox 96% ; ar8 13:46 BP 133 / 56; Pulse 70; Resp 20; Pulse Ox 96% on R/A; ar8 14:35 BP 140 / 55; Pulse 70; Resp 21; Pulse Ox 96% on R/A; ar8 15:30 BP 149 / 66; Pulse 73; Resp 19; Pulse Ox 98% on R/A; ar8 16:30 BP 138 / 63; Pulse 73; Resp 20; Pulse Ox 97% on R/A; ar8 ED Course: 11:46 Patient arrived in ED. ts1 11:47 Jack Frazier MD is Attending Physician. rn 11:55 Triage completed. af3 11:55 Arm band placed on. af3 12:04 Patient placed in an exam room, on a stretcher. ll1 12:09 Timothy Art, RN is Primary Nurse. ar8 12:15 Bed in low position. Call light in reach. Side rails up X2. Provided Education on: plan ar8 of care, diagnostics, estimated wait time. Client placed on continuous cardiac and pulse oximetry monitoring. NIBP monitoring applied. 12:17 EKG done, by ED staff, reviewed by Jack Frazier MD. ar8 12:25 XRAY Chest (1 view) In Process Unspecified. EDMS 12:27 Inserted saline lock: 22 gauge in right forearm, using aseptic technique. Blood ar8 collected. Flushed with 10 mL NS Missed attempt(s): 22 gauge in right forearm. Bleeding controlled, band aid applied, catheter tip intact. 12:27 No provider procedures requiring assistance completed. Patient maintains SpO2 ar8 saturation greater than 95% on room air. 13:[address] ar8 13:39 CT Chest For PE Angio In Process Unspecified. EDMS 13:41 Patient moved back from CT. ar8 15:26 Daniel Frazier MD is Hospitalizing Provider. rn 17:18 Patient admitted, IV remains in place. ar8 Administered Medications: No medications were administered Medication: 12:15 VIS not applicable for this client. ar8 Outcome: 15:26 Decision to Hospitalize by Provider. rn 17:18 Admitted to Med/surg accompanied by nurse, via wheelchair, room 214, Report called to ar8 sent to second floor 17:18 Condition: stable 17:18 Discharge instructions given to NA 17:20 Patient left the ED. ll1 Signatures: Dispatcher [employer] EDMS Jack Frazier MD MD rn Lewis, Lynsay, RN RN ll1 Merissa Gómez PAS PAS ts1 Simona Stevens RN RN af3 Timothy Art, RN RN ar8
[2025-05-20] MEDS ORDERED: ACETAMINOPHEN 325 MG TABLET PO PRN (16:22)
[2025-05-20] MEDS ORDERED: MAGNESIUM HYDROXIDE 8% 30 ML PO PRN (16:22)
--- NOTE | 2025-05-20 16:35 | P.HP ---
Certification for Inpatient Patient admitted to: Observation With expected LOS: <2 Midnights Patient will require the following post-hospital care: None Practitioner: I am a practitioner with admitting privileges, knowledge of patient current condition, hospital course, and medical plan of care. Services: Services provided to patient in accordance with Admission requirements found in Title 42 Section 412.3 of the Code of Federal Regulations Patient History Date of Service: 05/20/25 Primary Care Provider: Dr Jaison Landers Reason for admission: Chest pain History of Present Illness: 74-year-old male prior medical history of prostate problems and recent ablation earlier this week for atrial fibrillation presents with complaints of sharp, stabbing left sternal border chest pain rated 8/10 that started the previous night that is worse with deep breathing and movement. Endorses brief period of mild nausea last night without vomiting. Denies diaphoresis, radiation of pain vision alterations, dizziness, infectious sxs. ER Course: Patient arrived in the ED was assessed by attending physician. He was placed on continuous cardiac, blood pressureand pulse oximetry monitoring. Imaging included EKG, chest x-ray, CT chest angio. Vital signs were within normal limits on room air. EKG reviewed showing sinus rhythm, first-degree AV block, left bundle branch block. CT chest angio negative for PE. Chest x-ray negative for acute intra or thoracic abnormalities. Allergies codeine Allergy (Verified 12/28/24 06:13) Itching/Hives/Rash morphine Allergy (Verified 12/28/24 06:13) Itching/Hives/Rash prednisone Adverse Reaction (Verified 12/28/24 06:13) Nausea/Vomiting Home medications list reviewed: Yes Home Medications: Montelukast [Singulair*] 10 mg PO DAILYPRN PRN 09/19/13 Metoprolol Succinate [Toprol Xl*] 25 mg PO DAILY 12/27/24 Amiodarone HCl [Cordarone*] 200 mg PO BID #60 tab 12/29/24 Aspirin [Aspirin EC 81 MG] 81 mg PO DAILY #30 tab 12/29/24 Furosemide [Lasix] 20 mg PO DAILY #30 tab 12/29/24 - Past Medical/Surgical History Has patient received pneumonia vaccine in the past: No Diabetic: No -: asthma -: seasonal allergies -: hyperlipidemia -: A-fib -: R shoulder sx -: Left and right knee sx -: Ablation Psychosocial/ Personal History: Patient lives at home with his . - Social History Smoking Status: Unknown if ever smoked Alcohol use: Yes CD- Drugs: No Caffeine use: Yes Place of Residence: Home Review of Systems 10-point ROS is otherwise unremarkable Physical Examination - Physical Exam General: Alert, Oriented x3, Cooperative, Obese HEENT: Atraumatic, Normocephalic, Mucous membr. moist/pink Neck: Supple, 2+ carotid pulse no bruit, JVD not distended, No Thyromegaly, No LAD Respiratory: Clear to auscultation bilaterally, Normal air movement Cardiovascular: No edema, Normal pulses, Regular rate/rhythm, Normal S1 S2, No gallops, No rubs, No murmurs Capillary refill: Brisk Gastrointestinal: Normal bowel sounds, Soft and benign, Non-distended, W/out hepatosplenomegaly, No tenderness, No masses, No rebound, No guarding Musculoskeletal: No clubbing, No swelling, No contractures, No erythema, No tenderness, No warmth Integumentary: No rashes, No breakdown, No significant lesion, No tenderness/swelling, No erythema, No warmth, No cyanosis Neurological: Normal speech, Normal strength at 5/5 x4 extr, Normal tone, Sensation intact, Cranial nerves 3-12 intact, Normal affect External genitalia: Deferred Rectal: Deferred - Studies Laboratory Data (last 24 hrs) 05/20/25 05/20/25 05/20/25 12:27 12:27 12:27 WBC 9.70 Hgb 12.7 L Hct 37.8 L Plt Count 176 PT 19.6 H INR 1.76 Sodium 136 Potassium 3.8 BUN 10 Creatinine 0.89 Glucose 114 H Total Bilirubin 0.6 AST 34 ALT 37 Alkaline Phosphatase 59 Assessment and Plan - Plan Assessment: 74-year-old male prior medical history of prostate problems and recent ablation earlier this week for atrial fibrillation presents with complaints of sharp, stabbing left sternal border chest pain rated 8/10 that started the previous night that is worse with deep breathing and movement. ED discussed with Dr. Huggins who recommends holding for observation, obtaining updated echo and expresses concern for post procedural pericarditis. Plan: Chest Pain ACS rule out NSTEMI vs Unstable Angina Concern for postprocedural pericarditis s/p recent ablation History of A-fib Mild cardiomegaly Chest-ray without any acute abnormality, mild cardiomegaly noted CT chest angio negative for pulmonary embolus - EGC reviewed NSR - Trop 629, repeat 589, improving trend - BNP 2218 - Heart Score = 6 - ASA + Plavix - on Xarelto, to continue after dose verification with med rec - Suplemental O2 titrate SpO2>94%, currently RA - Maintain Hgb > 10 - ED discussed with Dr. Huggins, recommends echo Acute normocytic Anemia: -Hb: 12.7 was 14.2 on 12/29 admission. -Iron/TIBC, B12, Folic acid ordered, will follow.? -No sign of active bleed. -Ordered CBC for tomorrow. -Will continue to trend. -Transfuse if symptomatic or <7. - Advance Directives Does patient have a Living Will: No Does patient have a Durable POA for Healthcare: No
[2025-05-20] MEDS ORDERED: MONTELUKAST 10 MG TAB PO PRN (16:42)
[2025-05-20 17:54] VITALS: O2SAT 97
[2025-05-20 18:08] VITALS: BMI 34.5
[2025-05-20] MEDS: CLOPIDOGREL 75 MG TABLET PO ONE (20:14)
[2025-05-20] MEDS: AMIODARONE HCL 200 MG TAB PO SCH (20:14)
[2025-05-21 04:58] LABS: Nucleated RBC Absolute Count 0.0 (0-0); Nucleated Red Blood Cells % 0.1 % (0-0); White Blood Count 8.30 thou/uL (4.3-10.9)
[2025-05-21 05:09] LABS: Absolute Lymphocytes (CBC) 1.2 K/uL (0.7-4.9); Hematocrit 37.0 % (39.6-49.0); Hemoglobin 12.5 g/dL (13.6-17.9); MCH 27.9 pg (27.0-35.0); MCHC 33.9 g/dL (32.0-36.0); MCV 82.4 fL (80-100); MPV 8.1 fL (7.6-11.3); RBC Red Blood Cell Count 4.49 M/uL (4.33-5.43)
[2025-05-21 05:13] LABS: Anion Gap 8.1 mEq/L (5.0-15.0); BUN Blood Urea Nitrogen 11.0 mg/dL (7-18); Glucose Level 107.0 mg/dL (74-106); Iron 28.0 ug/dL (65-175); Magnesium 2.2 mg/dL (1.6-2.4); Potassium 4.1 mEq/L (3.5-5.1); Transferrin 199.0 mg/dL (200-360)
[2025-05-21] MEDS: FUROSEMIDE 20 MG TABLET PO SCH (08:22)
[2025-05-21] MEDS: ASPIRIN EC 81 MG TAB PO SCH (08:22)
[2025-05-21] MEDS: METOPROLOL XL 50 MG TAB PO SCH (08:22)
[2025-05-21] MEDS: RIVAROXABAN 10 MG TABLET PO SCH (11:45)
[2025-05-21 13:21] VITALS: BP 145/72; TEMP 97.9
--- NOTE | 2025-05-21 15:03 | P.DS ---
Admission Date: 05/20/25 Discharge Date: 05/21/25 Primary Care Provider: Dr Jaison Landers Disposition: ROUTINE DISCHARGE Discharge Condition: GOOD Reason for Admission: Chest pain Consultations: Cardiology Procedures: None Brief History of Present Illness: 74-year-old male prior medical history of prostate problems and recent ablation earlier this week for atrial fibrillation presents with complaints of sharp, stabbing left sternal border chest pain rated 8/10 that started the previous night that is worse with deep breathing and movement. Endorses brief period of mild nausea last night without vomiting. Denies diaphoresis, radiation of pain vision alterations, dizziness, infectious sxs. Hospital Course: 74-year-old male prior medical history of prostate problems and recent ablation earlier this week for atrial fibrillation presented to the ED with complaints of sharp, stabbing left sternal border chest pain rated 8/10 that started the previous night that is worse with deep breathing and movement. The emergency department provider discussed his presentation with Dr. Huggins, who recommended holding him for observation, potentially obtaining an updated echo and expressed concern for post procedural pericarditis. Chest Pain ACS rule out NSTEMI Postprocedural pericarditis s/p recent ablation History of A-fib Mild cardiomegaly The patient arrived in the ED was assessed by attending physician. He was placed on continuous cardiac, blood pressure and pulse oximetry monitoring. Im aging included EKG, chest x-ray, CT chest angio. Vital signs were within normal limits on room air. EKG reviewed showing sinus rhythm, first-degree AV block, left bundle branch block. CT chest angio negative for PE. Chest x-ray negative for acute intra or thoracic abnormalities, but did show mild cardiomegaly. Troponin admission was 629 and showed an immediate downtrend. His BNP on admission was 2218. He was started on aspirin and Plavix. His home medication Xarelto was discontinued as well. This was discussed with Dr. Huggins at the bedside and patient is cleared to discharge. He will consider a follow-up echo on outpatient basis. Acute normocytic Anemia: Hemoglobin is noted to be slightly lower on this admission than previous. It was initially measured at 12.7. His levels on his previous admission in December were 14.2. Iron studies were collected showing mild RAMANDO with iron noted to be 28. There were no signs of active bleeding during the admission. A CBC was monitored with plans to infuse if his hemoglobin drop below 7. No infusions required. Vital Signs/Physical Exam: Temp Pulse Resp BP Pulse Ox 97.9 F 74 20 145/72 H 96 05/21/25 12:00 05/21/25 12:00 05/21/25 12:00 05/21/25 12:00 05/21/25 12:00 General: Alert, Oriented x3, Cooperative HEENT: Atraumatic, Normocephalic, Mucous membr. moist/pink Neck: Supple, 2+ carotid pulse no bruit, JVD not distended, No Thyromegaly Respiratory: Clear to auscultation bilaterally, Normal air movement Cardiovascular: No edema, Normal pulses, Regular rate/rhythm, Normal S1 S2 Capillary refill: Brisk Gastrointestinal: Normal bowel sounds, Soft and benign, Non-distended Musculoskeletal: No clubbing, No swelling, No contractures, No erythema Integumentary: No rashes, No breakdown, No significant lesion, No tenderness/swelling Neurological: Normal speech, Normal strength at 5/5 x4 extr, Normal tone, Sen sation intact, Cranial nerves 3-12 intact, Normal affect External genitalia: Deferred Rectal: Deferred Laboratory Data at Discharge: WBC 8.30 thou/uL (4.3-10.9) 05/21/25 04:40 Hgb 12.5 g/dL (13.6-17.9) L 05/21/25 04:40 Hct 37.0 % (39.6-49.0) L 05/21/25 04:40 Plt Count 167 thou/uL (152-406) 05/21/25 04:40 PT 19.6 SECONDS (10-13.0) H 05/20/25 12:27 INR 1.76 05/20/25 12:27 Sodium 139 mEq/L (136-145) 05/21/25 04:40 Potassium 4.1 mEq/L (3.5-5.1) 05/21/25 04:40 BUN 11 mg/dL (7-18) 05/21/25 04:40 Creatinine 0.79 mg/dL (0.70-1.30) 05/21/25 04:40 Glucose 107 mg/dL (74-106) H 05/21/25 04:40 Phosphorus 3.3 mg/dL (2.5-4.9) 05/21/25 04:40 Magnesium 2.2 mg/dL (1.6-2.4) 05/21/25 04:40 Total Bilirubin 0.6 mg/dL (0.2-1.0) 05/20/25 12:27 AST 34 U/L (15-37) 05/20/25 12:27 ALT 37 U/L (16-61) 05/20/25 12:27 Alkaline Phosphatase 59 U/L (45-117) 05/20/25 12:27 Home Medications: Montelukast [Singulair*] 10 mg PO DAILYPRN PRN 09/19/13 Metoprolol Succinate [Toprol Xl*] 25 mg PO DAILY 12/27/24 Amiodarone HCl [Cordarone*] 200 mg PO BID #60 tab 12/29/24 Aspirin [Aspirin EC 81 MG] 81 mg PO DAILY #30 tab 12/29/24 Furosemide [Lasix] 20 mg PO DAILY #30 tab 12/29/24 Rivaroxaban [Xarelto*] 10 mg PO DAILY 05/20/25 Physician Discharge Instructions: PROBLEM: Postprocedure pericarditis GOAL: Clear understanding of disease process, remains chest pain-free INSTRUCTIONS: Follow-up with PCP in the next 2 to 3 days Follow-up with ornamental plasterer helper in the next 1 to 2 weeks Take medications as prescribed Diet: Heart healthy Activity: Resume normal activities as tolerated Diet: AHA Activity: Ad marika Followup: Larry Adair MD [Primary Care Provider] - Ozzy Huggins MD [ACTIVE - CAN ADMIT] - Time spent managing pt's care (in minutes): 36
--- NOTE | 2025-05-21 18:14 | CON ---
Date of Consultation: 05/21/2025 Reason For Consultation: Chest pain. History Of Present Illness: A 74-year-old male with history of atrial fibrillation, status post abla tion of the atrial fibrillation about 5 days ago, comes in with chest pain with deep breathing along with mild shortness of breath and lower extremity edema. He was started on Lasix. Chest pain is res olved completely, asymptomatic today, wants to go home. He had a cardiac catheterization done in December that was normal. Past Medical History: Atrial fibrillation, dyslipidemia, hypertension. Medications: Refer to reconciliation sheet for detailed list. Allergies: CODEINE, MORPHINE, PREDNISONE. Family History: No premature coronary artery disease or cancer. Social History: Does not smoke or drink. Does not use any drugs. Review of Systems: All systems reviewed and they are negative except as mentioned in HPI. Physical Examination: Vital Signs: Reviewed. Head and Neck: Pupils are equal, reactive to light. Intact eye movements. No JVD. No cervical lym phadenopathy. Neck is supple. Thyroid is not enlarged. Lungs: Clear to auscultation bilaterally. No rhonchi, wheezing, or crackles. No accessory muscle u se. Heart: Regular rate and rhythm. No extra sounds. Abdomen: Soft, nontender. Bowel sounds positive. No organomegaly. No masses or hernia. No rigidi ty or rebound. Extremities: No edema, clubbing, or cyanosis. Intact pulses. Skin: No rash. No nodules. Neurologic: Alert, awake, oriented x3. No acute focal deficits appreciated. Investigations: Troponin 629, down to 308. BUN is 11, creatinine 0.79, and hemoglobin is 12.5. Assessment And Recommendations: 1. Elevated troponin with chest pain. This is not an acute coronary syndrome. He had a coronary ang iogram that was normal in December. This is likely a leak post ablation and likely, his chest pain is per icardial. His chest pain is resolved and the troponin is trending down. No further cardiac workup i s needed for this issue. 2. Chest pain. It is pleuritic likely and irritation after the ablation. This is likely pericardial in origin, even though troponin slightly elevated, which is likely due to the recent ablation. Pain is resolved. No further action is needed. The patient can be released and follow up with me in the office tomorrow morning and we will obtain an echo to look for any pericardial effusion. 3. Atrial fibrillation. He is in sinus now. I will continue current management with metoprolol and Xarelto. 4. Acute on chronic diastolic heart failure exacerbation. Lasix helped significantly. Continue oral Lasix. The patient can be released today and to follow up with me in the office tomorrow. We will plan to do an echo on him. Case discussed with primary hospitalist and ER physician. SR/MODL Voice ID: [id number] Report ID: [id number]
== END 2025-05-21 15:36 | disposition home or self-care (01) ==
LOC: ER 11:45 → ERHOLD 16:21 → 2ND 17:11
PROVIDERS: ADMIT Hospitalist; ATTEND Hospitalist
DX: R07.9 Chest pain, unspecified (principal); I44.7 Left bundle-branch block, unspecified; I44.0 Atrioventricular block, first degree; I51.7 Cardiomegaly; R79.89 Other specified abnormal findings of blood chemistry; R11.0 Nausea; D64.9 Anemia, unspecified; I50.33 Acute on chronic diastolic (congestive) heart failure; Z88.5 Allergy status to narcotic agent; Z88.8 Allergy status to other drugs, medicaments and biological substances
CPT/HCPCS: 93005; 85025 ×2; 80048 ×2; 36415; 83735; 84100; 85610; 80076; 84484 ×4; 83540; 83880; 84466; 71275; 71045; 99285; G0378 ×3